=== PATIENT | female | born 1945 | race Caucasian/White ===

== ENCOUNTER 2023-10-15 11:51 | Outpatient (AMB) | payer MEDICARE, MEDICAID, SELFPAY ==
[2023-10-15 11:54] VITALS: BP 126/76; PULSE 73; O2SAT 98; BMI 19.1
--- NOTE | 2023-10-15 11:54 | HO.NEPHOV_ITS ---
HPI HPI Comments History of Present Illness Details Elderly woman with multiple medical problems Used to see [facility] since his half-way Accompanied by Here to establish care PFSH Family History (Updated 10/15/23 @ 12:00 by Princess Rahman) Mother Hypertension High cholesterol Crohn's disease COPD (chronic obstructive pulmonary disease) Father Brain cancer Social History Alcohol intake: never Patient Tobacco Use Status: Former Tobacco user Vital Signs 10/15/23 11:54 Height 5 ft 5 in Weight 115 lb BMI 19.1 BP 126/76 Blood Pressure Location Lt brachial Position Sitting Pulse 73 Pulse Source Pulse Oximeter Pulse Oximetry (%) 98 Oxygen Delivery Method Room Air Physical Exam Vital Signs: Last Vital Signs Pulse 73 10/15/23 11:54 BP 126/76 10/15/23 11:54 Pulse Ox 98 10/15/23 11:54 Oxygen Delivery Method Room Air 10/15/23 11:54 BMI result Body Mass Index 19.1 Const General: comfortable Nutritional Appearance: well nourished Orientation/consciousness: patient oriented x3 HEENT Head: No normal to inspection Mouth: moist mucous membranes Neck Neck: Yes supple and Yes no JVD Resp Auscultation: clear to auscultation bilaterally, no rales and rub present Cardio Jugular venous distension: no JVD Palpation: no palpable S3 and no palpable S4 Heart sounds: no rubs GI Palpation (GI): Soft to palpation and nontender Percussion: No Fluid wave present General: Yes no CVA tenderness Back/Spine/Pelvis Back: no CVA tenderness Skin General skin exam: no rashes or lesions noted Neuro General: patient oriented x3 Extrem General: Yes no pedal edema and No clubbing Assessment & Plan Assessment & Plan (1) CKD (chronic kidney disease): Code(s): N18.9 - Chronic kidney disease, unspecified (2) Nephrolithiasis: Code(s): N20.0 - Calculus of kidney (3) COPD (chronic obstructive pulmonary disease): Code(s): J44.9 - Chronic obstructive pulmonary disease, unspecified (4) Hyperparathyroidism: Code(s): E21.3 - Hyperparathyroidism, unspecified Plan Elderly woman with CKD in a setting fo HTN Shall track down previous labs Goal is to slow the progression of renal disease. Maintain blood pressure less than 130/80 Continue overt nephrotoxic agents. Encouraged her to keep intake more than output. She is stay on low-sodium diet. Check intact PTH calcium and phosphorus Monitor for anemia and possible CORNEL therapy. All questions were answered we will follow along with the team. Orders: Orders Phosphorus 10/15/23 N18.9 - Chronic kidney disease, unspecified, E21.3 - Hyperparathyroidism, unspecified Vitamin D 25-OH (D2 and D3) 10/15/23 N18.9 - Chronic kidney disease, unspecified, E21.3 - Hyperparathyroidism, unspecified Creatinine Urine 10/15/23 N05.9 - Unspecified nephritic syndrome with unspecified morphologic changes, N18.9 - Chronic kidney disease, unspecified, E21.3 - Hyperparathyroidism, unspecified Complete Blood Count Auto Diff 10/15/23 N18.30 - Chronic kidney disease, stage 3 unspecified, N18.9 - Chronic kidney disease, unspecified, E21.3 - Hyperparathyroidism, unspecified Comprehensive Met. Panel 10/15/23 N18.9 - Chronic kidney disease, unspecified, E21.3 - Hyperparathyroidism, unspecified Parathyroid Hormone Intact 10/15/23 N18.9 - Chronic kidney disease, unspecified, E21.3 - Hyperparathyroidism, unspecified Sodium Urine Random 10/15/23 N18.9 - Chronic kidney disease, unspecified, E21.3 - Hyperparathyroidism, unspecified Total Protein Urine Random 10/15/23 N18.9 - Chronic kidney disease, unspecified, E21.3 - Hyperparathyroidism, unspecified UA and rflx microscopic 10/15/23 N18.9 - Chronic kidney disease, unspecified, E21.3 - Hyperparathyroidism, unspecified Uric Acid 10/15/23 N18.9 - Chronic kidney disease, unspecified, E21.3 - Hyperparathyroidism, unspecified US renal BI 10/15/23 N20.0 - Calculus of kidney Coding Level of Care Code New Pt Level 5 (08919) Diagnoses CKD (chronic kidney disease) N18.9 Nephrolithiasis N20.0 COPD (chronic obstructive pulmonary disease) J44.9 Hyperparathyroidism E21.3 Results Reviewed Results Reviewed: Labs noted Nephrology Results: No Data to Display
== END 2023-10-15 12:34 | disposition home or self-care (01) ==
PROVIDERS: PCP Internal Medicine; Visit Provider Internal Medicine Hypertension Specialist
DX: I12.9 Hypertensive chronic kidney disease with stage 1 through stage 4 chronic kidney disease, or unspecified chronic kidney disease (principal); N18.9 Chronic kidney disease, unspecified; N20.0 Calculus of kidney; E21.3 Hyperparathyroidism, unspecified; J44.9 Chronic obstructive pulmonary disease, unspecified
CPT/HCPCS: 99204

== ENCOUNTER → 2023-10-15 11:51 | Outpatient (BNVA) | payer MEDICARE, MEDICAID, SELFPAY | PROVIDERS: PCP Internal Medicine; Visit Provider Internal Medicine Hypertension Specialist | DX: N18.9 Chronic kidney disease, unspecified (principal); N20.0 Calculus of kidney; J44.9 Chronic obstructive pulmonary disease, unspecified; E21.3 Hyperparathyroidism, unspecified | CPT/HCPCS: 99202 ==

== ENCOUNTER 2023-11-19 10:24 | Outpatient (AMB) | payer MEDICARE, MEDICAID, SELFPAY ==
[2023-11-19 10:36] VITALS: BP 118/72; PULSE 75; O2SAT 97; BMI 19.3
--- NOTE | 2023-11-19 10:36 | HO.NEPHOV_ITS ---
HPI HPI Comments History of Present Illness Details Elderly woman with multiple medical problems Used to see [facility] since his [facility] Accompanied by friend She continues to have multiple complaints. From renal standpoint she has no polyuria polydipsia. She does complain of dark urine. No back pain No fever PFSH Family History Mother Hypertension High cholesterol Crohn's disease COPD (chronic obstructive pulmonary disease) Father Brain cancer Social History Alcohol intake: never Patient Tobacco Use Status: Former Tobacco user Vital Signs 11/19/23 10:36 Height 5 ft 5 in Weight 116 lb BMI 19.3 BP 118/72 Blood Pressure Location Lt brachial Position Sitting Pulse 75 Pulse Source Pulse Oximeter Pulse Oximetry (%) 97 Oxygen Delivery Method Room Air Physical Exam Vital Signs: Last Vital Signs Pulse 75 11/19/23 10:36 BP 118/72 11/19/23 10:36 Pulse Ox 97 11/19/23 10:36 Oxygen Delivery Method Room Air 11/19/23 10:36 BMI result Body Mass Index 19.3 Const General: comfortable Nutritional Appearance: well nourished Orientation/consciousness: patient oriented x3 HEENT Head: No normal to inspection Mouth: moist mucous membranes Neck Neck: Yes supple and Yes no JVD Resp Auscultation: clear to auscultation bilaterally, no rales and rub present Cardio Jugular venous distension: no JVD Palpation: no palpable S3 and no palpable S4 Heart sounds: no rubs GI Palpation (GI): Soft to palpation and nontender Percussion: No Fluid wave present General: Yes no CVA tenderness Back/Spine/Pelvis Back: no CVA tenderness Skin General skin exam: no rashes or lesions noted Neuro General: patient oriented x3 Extrem General: Yes no pedal edema and No clubbing Assessment & Plan Assessment & Plan (1) Hyperparathyroidism: Code(s): E21.3 - Hyperparathyroidism, unspecified (2) CKD (chronic kidney disease): Code(s): N18.9 - Chronic kidney disease, unspecified (3) Nephrolithiasis: Code(s): N20.0 - Calculus of kidney (4) COPD (chronic obstructive pulmonary disease): Code(s): J44.9 - Chronic obstructive pulmonary disease, unspecified Plan Elderly woman with CKD in a setting fo HTN She has CKD 4. Creatinine stable at baseline. Goal is to slow the progression of renal disease. Maintain blood pressure less than 130/80 Continue overt nephrotoxic agents. Encouraged her to keep intake more than output. She is stay on low-sodium diet. Mild secondary hyperparathyroidism Follow intact PTH calcium and phosphorus Monitor for anemia and possible CORNEL therapy. Renal ultrasonogram was unremarkable no hydronephrosis or renal mass. There was a cystic mass above the kidneys and CT scan has been recommended. We will defer this to PCP Orders: Orders UA and rflx microscopic Today N39.0 - Urinary tract infection, site not specified Urine Culture Today N39.0 - Urinary tract infection, site not specified Neutrophil Cytoplasma Ab Today E21.3 - Hyperparathyroidism, unspecified, N18.9 - Chronic kidney disease, unspecified Proteinase 3 PR3 Antibodies Today E21.3 - Hyperparathyroidism, unspecified, N18.9 - Chronic kidney disease, unspecified Anti Glomerular Basement Memb 2 Days E21.3 - Hyperparathyroidism, unspecified, N18.9 - Chronic kidney disease, unspecified Protein Electrophoresis, Serum 2 Days E21.3 - Hyperparathyroidism, unspecified, N18.9 - Chronic kidney disease, unspecified Basic Metabolic Panel 2 Days E21.3 - Hyperparathyroidism, unspecified, N18.9 - Chronic kidney disease, unspecified Coding Level of Care Code Est Pt Level 4 (67548) Diagnoses Hyperparathyroidism E21.3 CKD (chronic kidney disease) N18.9 Nephrolithiasis N20.0 COPD (chronic obstructive pulmonary disease) J44.9 Results Reviewed Results Reviewed: Renal ultrasonogram was reviewed There was a cystic mass above the kidney and CT scan has been recommended. Nephrology Results: No Data to Display
== END 2023-11-19 11:16 | disposition home or self-care (01) ==
PROVIDERS: PCP Internal Medicine; Visit Provider Internal Medicine Hypertension Specialist
DX: E21.3 Hyperparathyroidism, unspecified (principal); N18.9 Chronic kidney disease, unspecified; N20.0 Calculus of kidney; J44.9 Chronic obstructive pulmonary disease, unspecified
CPT/HCPCS: 99214

== ENCOUNTER 2023-11-19 11:38 | Outpatient (REF) | payer MEDICARE, MEDICAID, SELFPAY ==
[2023-11-19 17:35] LABS: Appearance Urine Cloudy; Color Urine Yellow; Glucose Urine UA Negative (Negative); Leukocyte Esterase Urine Trace (Negative); Nitrite Urine Negative (Negative); Specific Gravity - Urine 1.015 (1.005-1.025); UMIC TRIGGER UA YES; Urine Blood Negative (Negative); Urine Ketones Trace mg/dL (Negative); Urine Protein 30 (1+) mg/dL (Neg-Trace)
[2023-11-19 17:43] LABS: Bacteria Urine Trace (None Seen); RBC Urine 0-2 /HPF (0-2)
[2023-11-19 18:26] LABS: Creatinine Urine 161.79 mg/dL; Total Protein Urine Random 53 mg/dL (<12)
[2023-11-20 20:43] LABS: Proteinase 3 PR3 Antibodies <1.0 AI
[2023-11-21 09:18] LABS: Neutrophil Cyto Ab Screen NEGATIVE (NEGATIVE)
== END 2023-11-19 11:39 | disposition home or self-care (01) ==
LOC: HO.HKASLDS 11:38
PROVIDERS: Visit Provider Internal Medicine Hypertension Specialist
DX: N05.9 Unspecified nephritic syndrome with unspecified morphologic changes (principal); N18.9 Chronic kidney disease, unspecified; N39.0 Urinary tract infection, site not specified; E21.3 Hyperparathyroidism, unspecified
CPT/HCPCS: 36415; 81001; 82570; 84156; 84300; 86021; 86036; 87086; 99212

== ENCOUNTER 2024-02-18 10:23 | Outpatient (AMB) | payer MEDICARE, MEDICAID, SELFPAY ==
[2024-02-18 10:21] VITALS: BP 146/78; PULSE 65; O2SAT 98; BMI 19.1
--- NOTE | 2024-02-18 10:21 | HO.NEPHOV_ITS ---
Vital Signs 02/18/24 10:21 Height 5 ft 5 in Weight 115 lb BMI 19.1 BP 146/78 H Blood Pressure Location Lt brachial Position Sitting Pulse 65 Pulse Source Pulse Oximeter Pulse Oximetry (%) 98 Oxygen Delivery Method Room Air Intake Visit Reasons: 3 Months/ Conf Fraud Representative Required: No Accompanied by: Friend Allergies No Known Allergies Allergy (Verified 02/18/24 10:24) Medication List - Last Reconciled 02/18/24 by Will Singh MD amlodipine 10 mg PO DAILY atorvastatin mg PO DAILY duloxetine 60 mg PO DAILY pxxpdxpazzj-daqthphms-ebcilodu 100-62.5-25 mcg (Trelegy Ellipta) 1 ea inhalation DAILY labetalol 50 mg PO BID lorazepam 0.5 mg PO Q6H PRN magnesium 200 mg PO DAILY PRN HPI Comments Details: Gloria is a 78-year-old woman with a hypertension, renal stones, bipolar disorder and a history of CKD Used to see [facility] since his intermediate Accompanied by friend She has a complicated history including calcium pyrophosphate deposition disease and history of kidney stones. History of hyperparathyroidism . 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 [facility] Family History Mother Hypertension High cholesterol Crohn's disease COPD (chronic obstructive pulmonary disease) Father Brain cancer Social History Alcohol intake: never Patient Tobacco Use Status: Former Tobacco user Physical Exam Vital Signs: Last Vital Signs Pulse 65 02/18/24 10:21 BP 146/78 H 02/18/24 10:21 Pulse Ox 98 02/18/24 10:21 Oxygen Delivery Method Room Air 02/18/24 10:21 BMI result Body Mass Index 19.1 Awake. Comfortable. Neck is supple. Mucosa moist. Lungs bilateral scattered rhonchi. Heart S1-S2 heard no gallop. Abdomen soft. Extremities no edema. No involuntary movements. No myoclonus. Const General: comfortable; No acute distress Orientation/consciousness: patient oriented x3 Eyes General: appearance normal, both eyes and all related structures Visual Denise: normal visual denise by confrontation Neck Neck: Yes supple and Yes no JVD Resp Effort & Inspection: normal respiratory effort and respiratory effort not decreased Auscultation: rhonchi Cardio Palpation: no palpable S3 and no palpable S4 Heart sounds: no rubs GI Inspection: Yes normal to inspection Palpation (GI): Soft to palpation Percussion: Yes normal to percussion Auscultation: normal bowel sounds General: Yes no CVA tenderness Back/Spine/Pelvis Back: no CVA tenderness Skin General skin exam: no petechiae and no purpura Neuro General: patient oriented x3 and no focal motor deficits Extrem General: No clubbing and No edema Results Reviewed Results Reviewed: Serum creatinine is 1.8 with a EGFR of 29 mL/minute Nephrology Results: Urine Protein 30 (1+) mg/dL (Neg-Trace) H 11/19/23 Urine Creatinine 161.79 mg/dL 11/19/23 Assessment & Plan Assessment & Plan (1) CKD (chronic kidney disease): Code(s): N18.9 - Chronic kidney disease, unspecified Category: Medical (2) Hyperparathyroidism: Code(s): E21.3 - Hyperparathyroidism, unspecified Category: Medical (3) Nephrolithiasis: Code(s): N20.0 - Calculus of kidney Category: Medical (4) COPD (chronic obstructive pulmonary disease): Code(s): J44.9 - Chronic obstructive pulmonary disease, unspecified Category: Medical Plan Elderly woman with CKD in a setting fo HTN She has CKD 4. Creatinine stable at baseline. 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 Being followed by surgical oncology. CT scan with IV contrast has been recommended. She is at moderate risk for contrast induced nephropathy. The risks and benefits were discussed with the patient. The benefits outweigh risks and if she requires CT scan with contrast we should proceed with the same. She should receive IV hydration prior to IV contrast administration. Medications: New lorazepam 0.5 mg PO Q6H PRN 30 tabs 0RF anxiety Coding Level of Care Code Est Pt Level 4 (00315) Diagnoses CKD (chronic kidney disease) N18.9 Hyperparathyroidism E21.3 Nephrolithiasis N20.0 COPD (chronic obstructive pulmonary disease) J44.9
== END 2024-02-18 10:55 | disposition home or self-care (01) ==
PROVIDERS: PCP Internal Medicine; Visit Provider Internal Medicine Hypertension Specialist
DX: N18.9 Chronic kidney disease, unspecified (principal); E21.3 Hyperparathyroidism, unspecified; N20.0 Calculus of kidney; J44.9 Chronic obstructive pulmonary disease, unspecified
CPT/HCPCS: 99214

== ENCOUNTER → 2024-02-18 10:23 | Outpatient (BNVA) | payer MEDICARE, MEDICAID, SELFPAY | PROVIDERS: PCP Internal Medicine; Visit Provider Internal Medicine Hypertension Specialist | DX: I12.9 Hypertensive chronic kidney disease with stage 1 through stage 4 chronic kidney disease, or unspecified chronic kidney disease (principal); N18.4 Chronic kidney disease, stage 4 (severe); E21.3 Hyperparathyroidism, unspecified; N20.0 Calculus of kidney; J44.9 Chronic obstructive pulmonary disease, unspecified | CPT/HCPCS: 99212 ==

== ENCOUNTER 2024-04-02 11:19 | Outpatient (AMB) | payer MEDICARE, MEDICAID, SELFPAY ==
--- NOTE | 2024-04-02 11:33 | HO.NEPHOV_ITS ---
Vital Signs 04/02/24 11:34 Height 5 ft 5 in Weight 111 lb BMI 18.5 BP 144/72 H Blood Pressure Location Lt brachial Position Sitting Pulse 73 Pulse Source Pulse Oximeter Pulse Oximetry (%) 99 Oxygen Delivery Method Room Air Intake Visit Reasons: Pt needed sooner appt- Conf User Interface Engineer Required: No Accompanied by: Friend Allergies No Known Allergies Allergy (Verified 04/02/24 11:36) Medication List - Last Reconciled 04/02/24 by Will Singh MD amlodipine 10 mg PO DAILY atorvastatin mg PO DAILY cinacalcet 60 mg PO DAILY duloxetine 60 mg PO DAILY hharwhddqng-fmjnlabqi-czagjoqh 100-62.5-25 mcg (Trelegy Ellipta) 1 ea inhalation DAILY labetalol 50 mg PO BID lorazepam 0.5 mg PO Q6H PRN magnesium 200 mg PO DAILY PRN HPI Comments Details: Gloria is a 78-year-old woman with a hypertension, renal stones, bipolar disorder and a history of CKD Used to see [facility] since his intermediate Accompanied by friend She has a complicated history including calcium pyrophosphate deposition disease and history of kidney stones. History of hyperparathyroidism . 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 04/02/24 CT with IV contrast was cancelled Waiting for MRI PENDING SALE TO [facility] Family History Mother Hypertension High cholesterol Crohn's disease COPD (chronic obstructive pulmonary disease) Father Brain cancer Social History Alcohol intake: never Patient Tobacco Use Status: Former Tobacco user Physical Exam Vital Signs: Last Vital Signs Pulse 73 04/02/24 11:34 BP 144/72 H 04/02/24 11:34 Pulse Ox 99 04/02/24 11:34 Oxygen Delivery Method Room Air 04/02/24 11:34 BMI result Body Mass Index 18.5 Results Reviewed Nephrology Results: Urine Protein 30 (1+) mg/dL (Neg-Trace) H 11/19/23 Urine Creatinine 161.79 mg/dL 11/19/23 Assessment & Plan Assessment & Plan (1) CKD (chronic kidney disease): Code(s): N18.9 - Chronic kidney disease, unspecified Category: Medical (2) Hyperparathyroidism: Code(s): E21.3 - Hyperparathyroidism, unspecified Category: Medical (3) Nephrolithiasis: Code(s): N20.0 - Calculus of kidney Category: Medical (4) COPD (chronic obstructive pulmonary disease): Code(s): J44.9 - Chronic obstructive pulmonary disease, unspecified Category: Medical Plan Elderly woman with CKD in a setting fo HTN She has CKD 4. Creatinine stable at baseline. 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 Being followed by surgical oncology. CT scan with IV contrast has been recommended. She is at moderate risk for contrast induced nephropathy. The risks and benefits were discussed with the patient. The benefits outweigh risks and if she requires CT scan with contrast we should proceed with the same. She should receive IV hydration prior to IV contrast adm inistration. scheduled for MRI ; Management per Oncology Renal function is stable [facility] Cr of 1.8 Coding Level of Care Code Est Pt Level 4 (99351) Diagnoses CKD (chronic kidney disease) N18.9 Hyperparathyroidism E21.3 Nephrolithiasis N20.0 COPD (chronic obstructive pulmonary disease) J44.9
[2024-04-02 11:34] VITALS: BP 144/72; PULSE 73; O2SAT 99; BMI 18.5
== END 2024-04-02 11:53 | disposition home or self-care (01) ==
PROVIDERS: PCP Internal Medicine; Visit Provider Internal Medicine Hypertension Specialist
DX: N18.9 Chronic kidney disease, unspecified (principal); E21.3 Hyperparathyroidism, unspecified; N20.0 Calculus of kidney; J44.9 Chronic obstructive pulmonary disease, unspecified
CPT/HCPCS: 99214

== ENCOUNTER → 2024-04-02 11:19 | Outpatient (BNVA) | payer MEDICARE, MEDICAID, SELFPAY | PROVIDERS: PCP Internal Medicine; Visit Provider Internal Medicine Hypertension Specialist | DX: I12.9 Hypertensive chronic kidney disease with stage 1 through stage 4 chronic kidney disease, or unspecified chronic kidney disease (principal); N18.9 Chronic kidney disease, unspecified; N20.0 Calculus of kidney; E21.3 Hyperparathyroidism, unspecified | CPT/HCPCS: 99212 ==

== ENCOUNTER 2024-06-30 10:41 | Outpatient (AMB) | payer MEDICARE, MEDICAID, SELFPAY ==
[2024-06-30 10:42] VITALS: BP 148/76; PULSE 72; O2SAT 97; BMI 17.8
--- NOTE | 2024-06-30 10:42 | HO.NEPHOV_ITS ---
Vital Signs 06/30/24 10:42 Height 5 ft 5 in Weight 107 lb BMI 17.8 BP 148/76 H Blood Pressure Location Lt brachial Position Sitting Pulse 72 Pulse Source Pulse Oximeter Pulse Oximetry (%) 97 Oxygen Delivery Method Room Air Intake Visit Reasons: FU/ Conf Manager [employer] Required: No Accompanied by: Friend Allergies No Known Allergies Allergy (Verified 06/30/24 10:44) Medication List - Last Reconciled 06/30/24 by Will Singh MD amlodipine 10 mg PO DAILY atorvastatin mg PO DAILY cinacalcet 60 mg PO DAILY duloxetine 60 mg PO DAILY duloxetine 20 mg PO DAILY tzckcpqeasi-vyplzgglr-dzfewrtr 100-62.5-25 mcg (Trelegy Ellipta) 1 ea inhalation DAILY labetalol 50 mg PO BID lorazepam 0.5 mg PO Q6H PRN magnesium 200 mg PO DAILY PRN oxycodone-acetaminophen 2.5-325 mg 1 tab PO BID PRN HPI Comments Details: Gloria is a 78-year-old woman with a hypertension, renal stones, bipolar disorder and a history of CKD Used to see [facility] since his [facility] Accompanied by friend She has a complicated history including calcium pyrophosphate deposition disease and history of kidney stones. History of hyperparathyroidism . 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 04/02/24 CT with IV contrast was cancelled 06/30/24 Surgery cancelled adn waiting for pulm evaluation Recent fall with knee injury PFSH Family History Mother Hypertension High cholesterol Crohn's disease COPD (chronic obstructive pulmonary disease) Father Brain cancer Social History Alcohol intake: never Patient Tobacco Use Status: Former Tobacco user Physical Exam Vital Signs: Last Vital Signs Pulse 72 06/30/24 10:42 BP 148/76 H 06/30/24 10:42 Pulse Ox 97 06/30/24 10:42 Oxygen Delivery Method Room Air 06/30/24 10:42 BMI result Body Mass Index 17.8 Neck Neck: Yes supple Resp Auscultation: clear to auscultation bilaterally Cardio Palpation: no palpable S3 Heart sounds: no rubs GI Palpation (GI): Soft to palpation Auscultation: normal bowel sounds Neuro Motor exam (neuro): no asterixis Results Reviewed Nephrology Results: Urine Protein 30 (1+) mg/dL (Neg-Trace) H 11/19/23 Urine Creatinine 161.79 mg/dL 11/19/23 Assessment & Plan Assessment & Plan (1) CKD (chronic kidney disease): Code(s): N18.9 - Chronic kidney disease, unspecified Category: Medical (2) Hyperparathyroidism: Code(s): E21.3 - Hyperparathyroidism, unspecified Category: Medical (3) Nephrolithiasis: Code(s): N20.0 - Calculus of kidney Category: Medical (4) COPD (chronic obstructive pulmonary disease): Code(s): J44.9 - Chronic obstructive pulmonary disease, unspecified Category: Medical (5) UTI (urinary tract infection), uncomplicated: Code(s): N39.0 - Urinary tract infection, site not specified Category: Medical Plan Elderly woman with CKD in a setting fo HTN She has CKD 4. Creatinine stable at baseline. 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 Being followed by surgical oncology. CT scan with IV contrast has been recommended. She is at moderate risk for contrast induced nephropathy. The risks and benefits were discussed with the patient. The benefits outweigh risks and if she requires CT scan with contrast we should proceed with the same. She should receive IV hydration prior to IV contrast administration. scheduled for MRI ; Management per Oncology Renal function is stable with Cr of 1.8 Await pulm evaluation . Orders: Orders Basic Metabolic Panel Today N18.9 - Chronic kidney disease, unspecified Total Protein Urine Random Today N18.9 - Chronic kidney disease, unspecified UA and rflx microscopic Today N18.9 - Chronic kidney disease, unspecified Urine Culture Today N18.9 - Chronic kidney disease, unspecified, N39.0 - Urinary tract infection, site not specified Complete Blood Count no Diff Today N18.9 - Chronic kidney disease, unspecified Creatinine Today N18.9 - Chronic kidney disease, unspecified Coding Level of Care Code Est Pt Level 4 (80669) Diagnoses CKD (chronic kidney disease) N18.9 Hyperparathyroidism E21.3 Nephrolithiasis N20.0 COPD (chronic obstructive pulmonary disease) J44.9 UTI (urinary tract infection), uncomplicated N39.0
== END 2024-06-30 11:04 | disposition home or self-care (01) ==
PROVIDERS: PCP Internal Medicine; Visit Provider Internal Medicine Hypertension Specialist
DX: N18.9 Chronic kidney disease, unspecified (principal); E21.3 Hyperparathyroidism, unspecified; N20.0 Calculus of kidney; J44.9 Chronic obstructive pulmonary disease, unspecified; N39.0 Urinary tract infection, site not specified
CPT/HCPCS: 99214

== ENCOUNTER → 2024-06-30 10:41 | Outpatient (BNVA) | payer MEDICARE, MEDICAID, SELFPAY | PROVIDERS: PCP Internal Medicine; Visit Provider Internal Medicine Hypertension Specialist | DX: I10 Essential (primary) hypertension (principal); N20.0 Calculus of kidney; N39.0 Urinary tract infection, site not specified; N18.9 Chronic kidney disease, unspecified; E21.3 Hyperparathyroidism, unspecified; J44.9 Chronic obstructive pulmonary disease, unspecified; C74.02 Malignant neoplasm of cortex of left adrenal gland; C74.01 Malignant neoplasm of cortex of right adrenal gland | CPT/HCPCS: 99212 ==

== ENCOUNTER 2024-10-27 10:25 | Outpatient (AMB) | payer MEDICARE, MEDICAID, SELFPAY ==
[2024-10-27 10:31] VITALS: BP 140/72; PULSE 68; O2SAT 94; BMI 18.5
--- NOTE | 2024-10-27 10:31 | HO.NEPHOV_ITS ---
Vital Signs 10/27/24 10:31 Height 5 ft 5 in Weight 111 lb BMI 18.5 BP 140/72 H Blood Pressure Location Lt brachial Position Sitting Pulse 68 Pulse Source Pulse Oximeter Pulse Oximetry (%) 94 Oxygen Delivery Method Room Air Intake Visit Reasons: FU/ LVM Boiler Out Required: No Accompanied by: Daughter Allergies No Known Allergies Allergy (Verified 10/27/24 10:34) Medication List - Last Reconciled 10/27/24 by Will Singh MD amlodipine 10 mg PO DAILY atorvastatin mg PO DAILY cinacalcet 60 mg PO DAILY duloxetine 60 mg PO DAILY duloxetine 20 mg PO DAILY kfhpuwyuvzo-bhusfblxt-uucdvkht 100-62.5-25 mcg (Trelegy Ellipta) 1 ea inhalation DAILY gabapentin 100 mg PO 3XD labetalol 50 mg PO BID loperamide 2 mg PO DAILY lorazepam 0.5 mg PO Q6H PRN magnesium 200 mg PO DAILY PRN oxycodone-acetaminophen 2.5-325 mg 1 tab PO BID PRN potassium chloride (Klor-Con) 20 mEq PO DAILY HPI Comments Details: Gloria is a 78-year-old woman with a hypertension, renal stones, bipolar disorder and a history of CKD Used to see [facility] since his skilled nursing Accompanied by friend She has a complicated history including calcium pyrophosphate deposition disease and history of kidney stones. History of hyperparathyroidism . 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 04/02/24 ; CT with IV contrast was cancelled. 06/30/24; Surgery cancelled and waiting for pulm evaluation; Recent fall with knee injury 10/27/24 : Accompanied by daughter today. She has had few hospitalizations with pneumonia and other issues. She developed TANVI and renal function has improved. She also had hypokalemia requiring potassium supplementation. She was still waiting for Pulmonary evaluation. [facility] Family History Mother Hypertension High cholesterol Crohn's disease COPD (chronic obstructive pulmonary disease) Father Brain cancer Social History Alcohol intake: never Patient Tobacco Use Status: Former Tobacco user Physical Exam Vital Signs: Last Vital Signs Pulse 68 10/27/24 10:31 BP 140/72 H 10/27/24 10:31 Pulse Ox 94 10/27/24 10:31 Oxygen Delivery Method Room Air 10/27/24 10:31 BMI result Body Mass Index 18.5 Results Reviewed Nephrology Results: Urine Protein 30 (1+) mg/dL (Neg-Trace) H 11/19/23 Urine Creatinine 161.79 mg/dL 11/19/23 Assessment & Plan Assessment & Plan (1) CKD (chronic kidney disease): Code(s): N18.9 - Chronic kidney disease, unspecified Category: Medical (2) Hyperparathyroidism: Code(s): E21.3 - Hyperparathyroidism, unspecified Category: Medical (3) Nephrolithiasis: Code(s): N20.0 - Calculus of kidney Category: Medical (4) COPD (chronic obstructive pulmonary disease): Code(s): J44.9 - Chronic obstructive pulmonary disease, unspecified Category: Medical (5) UTI (urinary tract infection), uncomplicated: Code(s): N39.0 - Urinary tract infection, site not specified Category: Medical Plan Elderly woman with CKD in a setting fo HTN She has CKD 3B TANVI has resolved. Most recent EGFR is 33 mL/minute cystic mass above the kidneys 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 Being followed by surgical oncology. CT scan with IV contrast has been recommended. She is at moderate risk for contrast induced nephropathy. The risks and benefits were discussed with the patient. The benefits outweigh risks and if she requires CT scan with contrast we should proceed with the same. She should receive IV hydration prior to IV contrast administration. scheduled for MRI ; Management per Oncology Renal function is stable with Cr of 1.8 Recheck renal panel along with potassium levels. For now she will continue with same dose of potassium supplementation. Orders: Orders Comprehensive Met. Panel Today Will Singh MD N18.9 - Chronic kidney disease, unspecified Phosphorus Today Will Singh MD N18.9 - Chronic kidney disease, unspecified Parathyroid Hormone Intact Today Will Singh MD N18.9 - Chronic kidney disease, unspecified Vitamin B12 and Folate Today Will Singh MD N18.9 - Chronic kidney disease, unspecified Complete Blood Count no Diff Today Will Singh MD N18.9 - Chronic kidney disease, unspecified Vitamin D 25-OH Total Today Will Singh MD N18.9 - Chronic kidney disease, unspecified Medications: Changed From cinacalcet 60 mg PO ONCE 90 tabs 0RF To cinacalcet 60 mg PO DAILY Tamara Lord, DNP, [employer] Coding Level of Care Code Est Pt Level 5 (75668) Diagnoses CKD (chronic kidney disease) N18.9 Hyperparathyroidism E21.3 Nephrolithiasis N20.0 COPD (chronic obstructive pulmonary disease) J44.9 UTI (urinary tract infection), uncomplicated N39.0
== END 2024-10-27 11:04 | disposition home or self-care (01) ==
LOC: HO.HKAS 10:26
PROVIDERS: PCP Internal Medicine; Visit Provider Internal Medicine Hypertension Specialist
DX: N18.9 Chronic kidney disease, unspecified (principal); E21.3 Hyperparathyroidism, unspecified; N20.0 Calculus of kidney; J44.9 Chronic obstructive pulmonary disease, unspecified; N39.0 Urinary tract infection, site not specified
CPT/HCPCS: 99214

== ENCOUNTER 2024-10-27 10:25 | Outpatient (REF) | payer MEDICARE, MEDICAID, SELFPAY ==
[2024-10-27 18:24] LABS: Appearance Urine Clear; Color Urine Yellow; Glucose Urine UA Negative (Negative); Leukocyte Esterase Urine Negative (Negative); Nitrite Urine Negative (Negative); PH 6.5 (5.0-9.0); UMIC TRIGGER UA YES; Urine Blood Negative (Negative); Urine Ketones Negative (Negative); Urine Protein 30 (1+) mg/dL (Neg-Trace)
[2024-10-27 18:30] LABS: Hematocrit 32.8 % (37.0-47.0); Hemoglobin 10.9 g/dl (12.0-16.0); Mean Corpuscular HGB Conc 33.2 g/dl (31.0-35.0); Mean Corpuscular Hemoglobin 31.5 pg (27.0-33.0); Mean Corpuscular Volume 94.8 fL (80.0-98.0); Mean Platelet Volume 9.9 fL (9.4-12.3); Platelet Count 247 X10*3/uL (160-400); Red Blood Count 3.46 X10*6/uL (4.20-5.50); Red Cell Distribution Width 13.8 % (11.0-16.0); White Blood Count 6.9 X10*3/uL (4.8-10.8)
[2024-10-27 18:30] LABS: Bacteria Urine None Seen (None Seen); Hyaline Casts Urine 0-2 /LPF (0-2); RBC Urine 0-2 /HPF (0-2); WBC Urine 0-5 /HPF (0-5)
[2024-10-27 18:44] LABS: Alanine Aminotransferase 22 U/L (0-31); Albumin Level 4.1 g/dL (3.5-5.0); Alkaline Phosphatase 79 U/L (39-117); Anion Gap 11 (12-20); Aspartate Amino Transferase 32 U/L (5-31); Bilirubin Total 0.4 mg/dL (0.0-1.0); Blood Urea Nitrogen 33 mg/dL (9-16); Calcium 9.2 mg/dL (8.4-10.2); Carbon Dioxide 29 mmol/L (22-29); Chloride 102 mmol/L (96-108); Estimated Glomerular Filt Rate 36; Glucose Random 84 mg/dL (60-115); Phosphorus 3.6 mg/dL (2.7-4.5); Potassium 4.1 mmol/L (3.3-5.1); Sodium 138 mmol/L (135-145); Total Protein 6.9 g/dL (6.5-8.0)
[2024-10-27 19:00] LABS: Vitamin D 25-OH Total 76.2 ng/mL (>30)
[2024-10-27 19:02] LABS: Total Protein Urine Random 26 mg/dL (<12)
[2024-10-27 19:14] LABS: Folate > 20.0 ng/mL (> or = 4.0); Vitamin B12 602 pg/mL (200-900)
[2024-10-27 19:29] LABS: Parathyroid Hormone Intact 147.7 pg/mL (8.7-77.1)
== END 2024-10-27 10:26 | disposition home or self-care (01) ==
LOC: HO.HKASLDS 10:25
PROVIDERS: PCP Internal Medicine; Visit Provider Internal Medicine Hypertension Specialist
DX: N18.9 Chronic kidney disease, unspecified (principal); N39.0 Urinary tract infection, site not specified; E21.3 Hyperparathyroidism, unspecified; N20.0 Calculus of kidney; J44.9 Chronic obstructive pulmonary disease, unspecified; D35.02 Benign neoplasm of left adrenal gland; D35.01 Benign neoplasm of right adrenal gland
CPT/HCPCS: 36415; 80053; 81001; 82306; 82607; 82746; 83970; 84100; 84156; 85027; 87086; 99212

== ENCOUNTER 2024-12-15 09:48 | Outpatient (AMB) | payer MEDICARE, MEDICAID, SELFPAY ==
[2024-12-15 09:49] VITALS: BP 110/72; PULSE 62; O2SAT 96; BMI 18.6
--- NOTE | 2024-12-15 09:49 | HO.NEPHOV ---
Vital Signs 12/15/24 09:49 Height 5 ft 5 in Weight 112 lb BMI 18.6 BP 110/72 Blood Pressure Location Lt brachial Position Sitting Pulse 62 Pulse Source Pulse Oximeter Pulse Oximetry (%) 96 Oxygen Delivery Method Room Air Intake Visit Reasons: Pt req sooner appt re: labs done at [facility] Floor Person Required: No Accompanied by: Spouse Allergies morphine Allergy (Unknown, Verified 12/15/24 09:52) Vomiting Medication List - Last Reconciled 12/15/24 by Will Singh MD amlodipine 10 mg PO DAILY atorvastatin mg PO DAILY cinacalcet 60 mg PO DAILY duloxetine 60 mg PO DAILY duloxetine 20 mg PO DAILY vzukwvwxijs-tbdrobvlf-saiovyln 100-62.5-25 mcg (Trelegy Ellipta) 1 ea inhalation DAILY imatinib 400 mg PO DAILY labetalol 100 mg PO BID lorazepam 0.5 mg PO Q6H PRN magnesium 200 mg PO DAILY PRN ondansetron HCl mg PO potassium chloride (Klor-Con) 20 mEq PO DAILY HPI Comments Details: Gloria is a 78-year-old woman with a hypertension, renal stones, bipolar disorder and a history of CKD Used to see [facility] since his snf Accompanied by friend She has a complicated history including calcium pyrophosphate deposition disease and history of kidney stones. History of hyperparathyroidism . 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 04/02/24 ; CT with IV contrast was cancelled. 06/30/24; Surgery cancelled and waiting for pulm evaluation; Recent fall with knee injury 10/27/24 : Accompanied by daughter today. She has had few hospitalizations with pneumonia and other issues. She developed TANVI and renal function has improved. She also had hypokalemia requiring potassium supplementation. She was still waiting for Pulmonary evaluation. 12/15/24 Last month she was in ER for hypokalemia s/p IV KCL and now on PO KCL No diarrhea . No polyuria. No nocturia Imatinib has been started as of 12/13/24 PFS Family History Mother Hypertension High cholesterol Crohn's disease COPD (chronic obstructive pulmonary disease) Father Brain cancer Social History Alcohol intake: never Patient Tobacco Use Status: Former Tobacco user Physical Exam Vital Signs: Last Vital Signs Pulse 62 12/15/24 09:49 BP 110/72 12/15/24 09:49 Pulse Ox 96 12/15/24 09:49 Oxygen Delivery Method Room Air 12/15/24 09:49 BMI result Body Mass Index 18.6 Neck Neck: Yes supple Resp Auscultation: clear to auscultation bilaterally Cardio Palpation: no palpable S3 Heart sounds: no rubs GI Palpation (GI): Soft to palpation Auscultation: normal bowel sounds Neuro Motor exam (neuro): no asterixis Results Reviewed Nephrology Results: Hgb 10.9 g/dl (12.0-16.0) L 10/27/24 WBC 6.9 X10*3/uL (4.8-10.8) 10/27/24 Plt Count 247 X10*3/uL (160-400) 10/27/24 Sodium 138 mmol/L (135-145) 10/27/24 Potassium 4.1 mmol/L (3.3-5.1) 10/27/24 Chloride 102 mmol/L (96-108) 10/27/24 Carbon Dioxide 29 mmol/L (22-29) 10/27/24 BUN 33 mg/dL (9-16) H 10/27/24 Creatinine 1.42 mg/dL (0.5-1.4) H 10/27/24 Calcium 9.2 mg/dL (8.4-10.2) 10/27/24 Phosphorus 3.6 mg/dL (2.7-4.5) 10/27/24 PTH Intact 147.7 pg/mL (8.7-77.1) H 10/27/24 Urine Protein 30 (1+) mg/dL (Neg-Trace) H 10/27/24 Urine Creatinine 161.79 mg/dL 11/19/23 Assessment & Plan Assessment & Plan (1) CKD (chronic kidney disease): Code(s): N18.9 - Chronic kidney disease, unspecified Category: Medical (2) Hyperparathyroidism: Code(s): E21.3 - Hyperparathyroidism, unspecified Category: Medical (3) Nephrolithiasis: Code(s): N20.0 - Calculus of kidney Category: Medical (4) COPD (chronic obstructive pulmonary disease): Code(s): J44.9 - Chronic obstructive pulmonary disease, unspecified Category: Medical (5) UTI (urinary tract infection), uncomplicated: Code(s): N39.0 - Urinary tract infection, site not specified Category: Medical Plan Elderly woman with CKD in a setting fo HTN She has CKD 3B Another episode of AK - cr at 2.1 on 12/06/24 Most recent EGFR is 33 mL/minute cystic mass above the kidneys 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 Being followed by surgical oncology. CT scan with IV contrast has been recommended. She is at moderate risk for contrast induced nephropathy. The risks and benefits were discussed with the patient. The benefits outweigh risks and if she requires CT scan with contrast we should proceed with the same. She should receive IV hydration prior to IV contrast administration. scheduled for MRI ; Management per Oncology Recheck renal panel along with potassium levels For now she will continue with same dose of potassium supplementation. Started on Imatinib on 12/15/24 Watch creatinine closely Follows in [facility] Coding Level of Care Code Est Pt Level 4 (36537) Diagnoses CKD (chronic kidney disease) N18.9 Hyperparathyroidism E21.3 Nephrolithiasis N20.0 COPD (chronic obstructive pulmonary disease) J44.9 UTI (urinary tract infection), uncomplicated N39.0
--- OUTSIDE RECORDS SUMMARY | 2024-12-15 10:42 | XMS_ITS | Encounter Summary ---
Author Organization [facility] Address [address] [facility] [address] [place] [address] Phone Care Team Providers Care Ammonium Sulfate Operator Name Role Phone Kinza Salazar Primary Care Provider Encounter Details Date Type Department Care Team ([facility] st Contact Info) Description 02/21/2024 Office Communication [facility] [address] [facility] [address] [place] [phone] Gina Reyes ARNP [address] [facility] [address] [place] [phone] Social History Tobacco Use Types Packs/Day Years Used Date Smoking Tobacco: Former Smokeless Tobacco: Never Alcohol Use Standard Drinks/Week Comments No 0 (1 standard drink = 0.6 oz pur e alcohol) Comments Unknown Sex and Gender Information Value Date Recorded Sex Assigned at Not on file Legal Sex Female 5:16 PM EST Gender Identity Not on file Sexual Orientation Not on file documented as of this encounter Miscellaneous Notes * Telephone Encounter - Pilar Galdamez - 03/08/2024 2:44 PM EDT PT called to say that her BP is high. Now-173/87. Has been 144/68 and 127/73. That's all she could give me. She mentioned Mar 19 CAT scan and Mar 22 at [facility] Anyway, CB# [phone] TY documented in this encounter Plan of Treatment Upcoming Encounters Date Type Department Care Team (Late st Contact Info) Description 01/07/2025 11:00 AM EDT Office Visit [facility] [address] [phone] Juan Pablo Cox MD [address] [phone] documented as of this encounter Visit Diagnoses Not on filedocumented in this encounter Care Teams Ammonium Sulfate Operator Relationship Specialty Start Date End Date Kinza Salazar [address] [place] [address] PCP - General 08/19/23 documented as of this encounter
--- OUTSIDE RECORDS SUMMARY | 2024-12-15 10:42 | XMS_ITS | Clinical Summary ---
Author Organization [facility] Address [address] [facility] [address] [place] [address] Phone Care Team Providers Care Neurodiagnostic Technologist Name Role Phone Kinza Salazar Primary Care Provider Allergies No known active allergies Medications atorvastatin (LIPITOR) 40 MG tablet Take 40 mg by mouth at bed time 08/05/20 20 Active buPROPion SR (WELLBUTRIN SR) 200 MG 12 hr tablet Take 1 tablet (200 mg total) by mouth 3 times a day 270 tablet 3 10/28/19 21 Active DULoxetine (CYMBALTA) [address] capsule Take 20 mg by mouth 1 (one) time each day Do not crush or chew. Active LORazepam (Ativan) 0.5 MG tablet Take 1 tablet (0.5 mg total) by mouth every 6 (six) hours if needed for anxiety 60 tablet 5 04/02/20 23 Active labetalol (NORMODYNE) 100 MG tabletIndications:Chron ic kidney disease, stage 2 (mild) Take 1 tablet (100 mg total) by mouth in the morning. Take 1/2 tab BID. 90 tablet 3 09/11/19 24 Active amLODIPine (NORVASC) 10 MG tabletIndications:Essen tial hypertension Take 1 tablet (10 mg total) by mouth 1 (one) time each day 90 tablet 3 09/11/19 24 Active cinacalcet (Sensipar) 30 MG tabletIndications:Stage 3b chronic kidney disease (HCC),Secondary hyperparathyroidism of renal origin (HCC) Take 1 tablet (30 mg total) by mouth 1 (one) time each day with breakfast 30 tablet 11 02/29/20 24 025 Active Active Problems Problem Noted Date Diagnosed Date Abdominal aortic aneurysm 11/26/2021 Adrenal mass 11/26/2021 Anxiety 11/26/2021 Asthma-chronic obstructive p ulmonary disease overlap syndrome 11/26/2021 Bipolar affective disorder, currently depressed, mild 11/26/2021 Calcium pyrophosphate deposition disease 022 Cobalamin deficiency 11/26/2021 Depressive disorder 11/26/2021 Diffuse spasm of esophagus 11/26/2021 Dyspnea 11/26/2021 H/O: pneumothorax 11/26/2021 Hemorrhoid 11/26/2021 Hidradenitis 11/26/2021 Hyperparathyroidism 11/26/2021 Neck pain 11/26/2021 Urinary incontinence 11/26/2021 Benign hypertensive renal disease 10/27/2020 Chronic kidney disease stage 3 10/27/2020 Essential hypertension 10/27/2020 Hyperlipidemia 10/27/2020 Hyperparathyroidism due to renal insufficiency 0 10/27/2020 Renal stone 10/27/2020 Immunizations Immunization Administration Dates Next Due Influenza Split High Dose Preservative Free IM 1 Influenza Whole 04/13/2020 Pneumococcal Conjugate 13-Valent 06/17/2014 Pneumococcal Polysaccharide 12/15/2014 Zoster 04/27/2014 Social History Tobacco Use Types Packs/Day Years Used Date Smoking Tobacco: Former Smokeless Tobacco: Never Tobacco Cessation:Counseling Given: Not Answered Alcohol Use Standard Drinks/Week Comments No 0 (1 standard drink = 0.6 oz pur e alcohol) Comments Unknown Sex and Gender Information Value Date Recorded Sex Assigned at Not on file Legal Sex Female 5:16 PM EST Gender Identity Not on file Sexual Orientation Not on file Last Filed Vital Signs Vital Sign Reading Time Taken Comments Blood Pressure 153/86 03/15/2024 3:41 PM EDT Pulse 76 03/15/2024 3:41 PM EDT Temperature - - Respiratory Rate - - Oxygen Saturation 98% 03/15/2024 3:41 PM EDT Inhaled Oxygen Concentration - - Weight 51.3 kg (113 lb 3.2 oz) 03/15/2024 3:41 P M EDT Height 167.6 cm (5' 6 ) 03/15/2024 3:41 PM EDT Body Mass Index 18.27 03/15/2024 3:41 PM EDT Plan of Treatment Upcoming Encounters Date Type Department Care Team (Late st Contact Info) Description 01/07/2025 11:00 AM EDT Office Visit [facility] [address] [phone] Juan Pablo Cox MD [address] [phone] Health Maintenance Due Date Last Done Comments Pneumococcal Vaccine: 50+ Years Completed 05/18/2016, 12/15/2014, 06/17/2014, Additional history exists Pneumococcal Vaccine: Peds (0 to 5 Years) and At-Risk Patients (6 to 49 Years) Discontinued 05/18/2016, 12/15/2014, 06/17/2014, Additional history exists Influenza Vaccine Completed 06/09/2024, , 05/11/2022, Additional history exists Hepatitis B Vaccine Aged Out No longe r eligible based on patient's age to complete this topic Insurance [address] [place] [id number] Medicaid [place] Medicare Medicaid [place] Medicare Care Teams Neurodiagnostic Technologist Relationship Specialty Start Date End Date Kinza Salazar [address] [place] [address] PCP - General 08/19/23
== END 2024-12-15 10:21 | disposition home or self-care (01) ==
LOC: HO.HKAS 09:48
PROVIDERS: PCP Internal Medicine; Visit Provider Internal Medicine Hypertension Specialist
DX: N18.9 Chronic kidney disease, unspecified (principal); E21.3 Hyperparathyroidism, unspecified; N20.0 Calculus of kidney; J44.9 Chronic obstructive pulmonary disease, unspecified; N39.0 Urinary tract infection, site not specified
CPT/HCPCS: 99214

== ENCOUNTER → 2024-12-15 09:48 | Outpatient (BNVA) | payer MEDICARE, MEDICAID, SELFPAY | PROVIDERS: PCP Internal Medicine; Visit Provider Internal Medicine Hypertension Specialist | DX: N18.9 Chronic kidney disease, unspecified (principal); N20.0 Calculus of kidney; N39.0 Urinary tract infection, site not specified; J44.9 Chronic obstructive pulmonary disease, unspecified; E21.3 Hyperparathyroidism, unspecified | CPT/HCPCS: 99212 ==

== ENCOUNTER 2025-03-09 11:17 | Outpatient (AMB) | payer MEDICARE, MEDICAID, SELFPAY ==
--- OUTSIDE RECORDS SUMMARY | 2025-02-28 14:30 | XMS_ITS | Encounter Summary ---
Author Organization [facility] Address [address] [place] [address] [place] [phone] Phone Care Team Providers Care Plugman Name Role Phone Srinivasa Perez MD Primary Care Provider + Chau Live MD Unavailable Farzana Castro RN Unavailable [email or web address] Reason for Visit * Reason Comments Follow-up Encounter Details Date Type Department Care Team (Late st Contact Info) Description 02/28/2025 2:30 PM EDT [facility], [facility] [place] [address] [facility], [address]th [place] [address] Simi Arciniega, COCOA ROOM OPERATOR [address] [place] [address] [email or web address] Max Rodriguez MD [address] [place] [id number] [email or web address] Gastrointestinal stromal tumor (GIST) (Primary Dx) Social History Tobacco Use Types Packs/Day Years Used Date Smoking Tobacco: Former Cigarettes Smokeless Tobacco: Never Child or Family Care Answer Date Record ed Do you have problems with on e of the following making it difficult for you to work, study, or receive health care? No 05/07/2024 Education Answer Date Recorded Are you interested in more education? Not on fouzia e 04/20/2024 Are you concerned about learning? Not on file 04/20/2024 No 04/20/2024 No 04/20/2024 Food Answer Date Recorded Within the past 6 months we worried whether our food would run out before we got money to buy more. Sometimes True 05/07/2024 Within the past 6 months the food we bought just didn't last and we didn't have enough money to get more. I choose not to answer 05/07/2024 Residential Stability Answer Date Recor ded What is your housing situation today? I have sharmila sing 05/07/2024 How many times have you move d in the past 12 months? Zero (I did not move) 05/07/2024 Paying for Meds Answer Date Recorded Do you have trouble paying for medicines? No 05/07/2024 Paying Utility Bills Answer Date Record ed Do you have trouble paying your heating or elect ricity bill? No 05/07/2024 Transportation Answer Date Recorded Has the lack of transportati on kept you from medical appointments or from getting medications? No 05/07/2024 Digital Access Answer Date Recorded No 04/20/2024 No 04/20/2024 Reliable internet access at home? Not on file 04/20/2024 Device with a working camera? Not on file Comments Unknown Sex and Gender Information Value Date Recorded Sex Assigned at Female 04/20/2024 1:38 PM EDT Legal Sex Female 10:06 PM EDT Gender Identity Female 04/20/2024 1:38 PM EDT Sexual Orientation Straight 04/20/2024 1: 38 PM EDT documented as of this encounter Progress Notes * Simi Arciniega NP - 02/28/2025 2:30 PM EDT Images from the original note were not included. Subjective: Patient ID: Gloria Buckley is a wali 79 y.o. female with a gastrointestinal stromal tumor (GIST). She presents today for a toxicity assessment following initiation of Sutent at 12.5mg daily one week ago. She is present on today's VV alone. Dx: 1. Gastrointestinal stromal tumor (GIST) Chief Complaint Patient presents with Follow-up Oncology History Gastrointestinal stromal tumor (GIST) 12/06/2024 Initial Diagnosis Gastrointestinal stromal tumor (GIST) 12/13/2024 - 12/13/2024 Systemic Therapy Control; IMATINIB Max Rodriguez MD 02/21/2025 - Systemic Therapy Palliative; Sunitinib 37.5 mg on days 1-28 / cycle 28 days Max Rodriguez MD The patient visit today, 02/28/2025, was conducted via telephone. Patient is: An established patient Location of Provider: hospital / clinic Location of Patient: Home Patient Consent to Telephone Visit: YES, 02/28/2025 Phone Visit was performed in lieu of a Video Visit due to technical difficulties Total time spent on 02/28/2025 for this telephone visit includes time reviewing, documenting, and obtaining, clinical information, coordinating with the care team and/or other specialists, and counseling the patient: 60 minutes. SARCOMA HISTORY: (reference only) 2020: Found on EGD to have a 7 mm submucosal nodule in the second portion of the duodenum, pathology was benign November 2021: EGD/EUS again showed the above nodule with EUS findings consistent with a lipoma and nonspecific chronic inflammatory changes in the pancreas 02/19/23: MRI abdomen - 3.8 x 2.4 x 3.7 cm mass 01/01/24: CT abd/pelvis1. There is a mass In the left upper abdomen which appears to be part of the stomach wall, This was present on the previous chest CT dated 12/13/2020, but appears to have slightlyenlarged. This may represent a gastrointestinal stromal tumor 2. There is also an exophytic mass which appears to orlginate from the right kidney. This may represent a cyst, though it has a similar appearance to the lesion In the left upper abdomen. 3. There are multiple Ilver cysts. 4. There is a large nonobstructing stone In the right kidney, There is also a small nonobstructing stone in the left kidney, No stones are seen In either ureter orbladder. January 15, 2024: EGD/EUS showed a new 5.1 x 6.6 cm left upper quadrant lesion displacing the liver that appeared to move independently of the gastric wall. Biopsy of the left upper quadrant gastric massrevealed GIST. There is a separate adrenal neoplasm measuring 3.6 x 1.7 cm cm that on ultrasound was homogenous and well-circumscribed and was perigastric at about 45 cm in the gastric body. 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 April 12, 2024: MRI of the abdomen showed a 7 cm left upper quadrant mass arising from the stomach. There additionally were separate adrenal nodules and significant renal artery stenosis. 06/18/24: Planned robotic laparoscopic gastrectomy but was canceled due to COPD/pulmonary issueswithmultiple (at least 2) admissions for COPD exacerbations/PNA. 09/24/24: Reported to ED for evaluation of hypokalemia 09/24/24: XR Abdomen: 1. 2.4 cm calcification overlying the right upper quadrant which could represent a gallstone. Consider right upper quadrant ultrasound 2. 0.4 cm calcification overlying the left renal shadow which could represent renal calculus. 11/24/24: CT A/P: Compared to MRI abdomen dated 04/12/2024:1. Similar 5.8 cm left upper quadrant mass likely arising from the stomach, likely a gastrointestinal stromal tumor.2. Similar bilateral adrenal adenomas.3. New S1 and bilateral sacral alar insufficiency fractures.4. Similar bilateral nephrolithiasis. 12/13/24: Started imatinib 400 mg. 01/10/25: Imatinib 400 mg on hold due to side effects including nausea with food aversion, constipation, headache, and profound fatigue. Planned to switch to imatinib 100 mg. 01/18/25: Resumed imatinib 100 mg. Since lower dose, experienced foot swelling, watery eyes, eyelid swelling. 02/07/25: CT A/P: Since 11/25/2023: 1. Unchanged gastric GIST 2. No evidence of metastatic disease inthe abdomen and pelvis by noncontrast CT. HPI Gloria Buckley reports feeling a little confused, upset and a little overwhelmed similar to the last several weeks. She took her first dose of Sutent 12.5mg 1 tab on 02/24 around 4pm with food. She reports she felt okay after dosing with no significant change. 02/18 Urine protein/creatinine ratio 688 (0-200) Urine albumin/creatinine ratio 226 (0-29) BUN 21 Cr 1.5 02/21 BUN 20 Cr 1.89 For hypertension: She continues on labetolol 100mg BID and amlodipine 10mg once daily with plans to decrease to 5mg. She was started on lasix and directed to take 1/2 tab for 10mg once daily Last dose of potassium was about a week ago. Plan to add on losartan 25mg daily- not yet started. Last BM 3 days ago on Metamucil, mandarin oranges and dulcolax. She describes at home having small heard dark stools. Review of Systems All other systems reviewed and are negative. CBC and differential Order: [id number] Collected 02/21/2025 13:17 Status: Final result Next appt: 03/03/2025 at 02:00 PM in [facility] (Gina Eduardo, [facility]) Dx: Gastrointestinal stromal tumor (GIST) Test Result Released: Yes (seen) Specimen Information: Blood 0 Result Notes Component Ref Range & Units 02/21/25 1317 02/07/25 1204 01/19/25 1454 01/10/25 1214 12/27/24 1329 12/06/24 1250 05/07/24 1220 WBC 4.00 - 10.00 K/uL 6.52 6.81 6.07 5.78 7.52 7.14 7.78 RBC 3.90 - 6.00 M/uL 3.40 Low 3.30 Low 3.36 Low 3.32 Low 3.63 Low 3.71 Low 3.96 HGB 11.5 - 16.4 g/dL 11.0 Low 10.5 Low 10.7 Low 10.6 Low 11.6 12.0 12.3 HCT 36.0 - 48.0 % 33.2 Low 32.0 Low 32.8 Low 31.5 Low 34.2 Low 35.4 Low 36.4 PLT 150 - 450 K/uL 177 207 190 162 187 193 276 MCV 80.0 - 100.0 fL 97.6 97.0 97.6 94.9 94.2 95.4 91.9 MCH 27.0 - 32.0 pg 32.4 High 31.8 31.8 31.9 32.0 32.3 High 31.1 MCHC 32.0 - 36.0 g/dL 33.1 32.8 32.6 33.7 33.9 33.9 33.8 RDW 11.5 - 14.5 % 13.2 13.2 13.1 12.3 12.1 12.3 12.0 MPV 8.4 - 12.0 fL 9.5 9.8 9.1 9.3 9.6 9.3 9.7 R NRBC 0 /100 WBCs 0.00 0.00 0.00 0.00 0.00 0.00 0.00 ABSOLUTE NRBC 0 K/uL 0.00 0.00 0.00 0.00 0.00 0.00 0.00 DIFF METHOD Auto Auto Auto Auto Auto Auto NEUTS 48.0 - 76.0 % 61.9 72.2 60.3 65.7 72.4 59.8 LYMPHS 18.0 - 41.0 % 26.4 18.8 27.3 25.4 20.9 30.4 MONOS 4.0 - 11.0 % 9.0 7.0 10.4 6.2 4.8 7.0 EOS 0.0 - 5.0 % 2.1 1.3 1.5 2.2 1.1 2.1 BASOS 0.0 - 1.5 % 0.3 0.3 0.2 0.3 0.3 0.3 % IMMATURE GRANS 0.0 - 1.0 % 0.3 0.4 0.3 0.2 0.5 0.4 ABSOLUTE NEUTS 1.92 - 7.60 K/uL 4.03 4.91 3.66 3.79 5.45 4.27 ABSOLUTE LYMPHS 0.72 - 4.10 K/uL 1.72 1.28 1.66 1.47 1.57 2.17 ABSOLUTE MONOS 0.16 - 1.10 K/uL 0.59 0.48 0.63 0.36 0.36 0.50 ABSOLUTE EOS 0.00 - 0.50 K/uL 0.14 0.09 0.09 0.13 0.08 0.15 ABSOLUTE BASOS 0.00 - 0.15 K/uL 0.02 0.02 0.01 0.02 0.02 0.02 ABS IMMATURE GRANS 0.00 - 0.10 K/uL 0.02 0.03 0.02 0.01 0.04 0.03 Specimen Collected: 02/21/25 13:17 Last Resulted: 02/21/25 13:37 Comprehensive metabolic panel Order: [id number] Collected 02/21/2025 13:17 Status: Final result Next appt: 03/03/2025 at 02:00 PM in [facility] ([facility] Edu[facility], [facility]) Dx: Gastrointestinal stromal tumor (GIST) Test Result Released: Yes (not seen) Specimen Information: Blood 0 Result Notes 2 HM Topics Component Ref Range & Units 02/21/25 1317 02/07/25 1204 01/19/25 1454 01/10/25 1214 12/27/24 1535 12/27/24 1329 12/06/24 1250 SODIUM 136 - 145 mmol/L 140 139 139 134 Low 135 Low 137 138 POTASSIUM 3.4 - 5.1 mmol/L 4.7 3.7 3.8 3.7 4.4 5.5 High 3.6 CHLORIDE 98 - 107 mmol/L 99 100 100 97 Low 98 101 97 Low CO2 22 - 31 mmol/L 27 26 27 25 27 27 29 BUN 6 - 23 mg/dL 20 22 21 26 High 27 High 29 High 32 High CREATININE 0.50 - 1.20 mg/dL 1.89 High 1.72 High 1.90 High 2.19 Critically High 2.14 Critically High 2.09 Critically High CM 1.98 High GLUCOSE 70 - 100 mg/dL 96 96 90 150 High 106 High 130 High 109 High ALBUMIN 3.5 - 5.2 g/dL 4.4 4.2 4.3 4.2 4.2 4.1 TOTAL PROTEIN 6.4 - 8.3 g/dL 6.4 6.4 6.4 6.3 Low 6.2 Low 6.7 CALCIUM 8.8 - 10.7 mg/dL 9.1 8.6 Low 9.0 9.2 9.6 9.9 9.7 ALKALINE PHOSPHATASE 35 - 104 U/L 68 68 70 68 72 82 TOTAL BILIRUBIN 0.2 - 1.2 mg/dL 0.6 0.8 0.5 0.5 0.5 0.4 AST <33 U/L 22 25 24 38 High 37 High 30 ALT <34 U/L 12 16 15 22 20 16 GLOBULIN 2.3 - 4.2 g/dL 2.0 Low 2.2 Low 2.1 Low 2.1 Low 2.0 Low 2.6 EGFR >59 mL/min/1.73m2 27 Low 30 Low CM 27 Low CM 23 Low CM 23 Low CM 24 Low CM 26 Low CM Comment: Estimated glomerular filtration rate calculated using the CKD-EPI refit equation. ANION GAP 7 - 17 mmol/L 14 13 12 [address] Chest Without Contrast Result Date: 02/23/2025 History: Lung nodules. Personal history of gastrointestinal stromal tumor. Comparison: Thoracic CTA02/21/22 Technique: Helical volumetric imaging of the thorax was performed without IV contrast. DLP:152.82 mGy/cm Viralizeer Iterative reconstruction technique Findings: The trachea and central bronchial tree remain patent. Centrilobular and paraseptal emphysema are again noted. Minimalbiapical juxtapleural opacity with traction bronchiectasis is without significant change, consistent with scarring. Thick bandlike opacity is seen in the inferior lingula and at the base of the left lower lobe anteriorly, compatible with atelectasis or scar, without significant change. Rare homogene ously calcified nodules are consistent with old granulomatous disease. A 3 mm solid, noncalcified nodule in the left lower lobe (image 131 series 3) is unchanged. A 3 mm solid, noncalcified nodule isunchanged in the anterior right lower lobe (image 160). No suspicious developing pulmonary nodule is seen. No pleural or pericardial effusions are identified. Moderate multichamber cardiomegaly is noted, with the heart having increased in size since the 2021 study. The ascending thoracic aortic diameter is 4 cm, slightly increased from previous. Atherosclerotic calcification of the thoracic aortaand coronary arteries is again seen. Partial (left) thyroidectomy sequela are again noted. No developing thoracic lymphadenopathy is seen. A small portion of the upper abdomen included on the lowest images through the thorax is remarkable for scattered hepatic cysts and a 3.5 x 2.5 cm left adrenal mass with CT numbers compatible with an adenoma. The adrenal lesion is visible dating back to a [address] at this facility. A 5.8 x 5.3 cm circumscribed round solid mass is seen in the left upper quadrant, abutting the gastric fundus, reported on an outside CT abdomen/pelvis from 11/24/24 ([facility]), presumably the patient's known gastrointestinal stromal tumor. A staghorn calculus is partially imaged in the right kidney and there are additional smaller nonobstructing bilateral renal calculi. Splenic calcifications are consistent with old granulomatous disease. Multiple thoracic vertebral compression fractures are without significant change from 2021. There is no significant retropulsion associated with these fractures. Impression: 1. Stable sub-5 mm pulmonary nodules since 2021. No suspicious developing nodule is seen. 2. Moderate cardiomegaly, with an increase in cardiac size since 2021. 3. No developing thoracic lymphadenopathy. 4. Multiple upper abdominal abnormalities, partially imaged, similar to what was reported on an outside abdominal CT from 11/24/24. [place] ([id number]) -------- FINAL REPORT -------- Dictated By: Joan Crooks Dictated Date: 02/23/2025 08:49 ET Assigned Physician: Joan Crooks Reviewed and Electronically Signed By: Joan Crooks Signed Date: 02/23/2025 09:05 ET Workstation ID: [id number] Transcribed By: Self Edit Transcribed Date: 02/23/2025 08:[address] Abdomen/Pelvis Result Date: 02/07/2025 CT ABDOMEN/PELVIS WITHOUT CONTRAST Referring clinician's provided indication for this examination in Epic: * Soft tissue sarcoma, (GIST), follow up; gastric gist, on imatinb TECHNIQUE: Multidetector-row CT of the abdomen and pelvis was performed without intravenous contrast using tailored dose modulation techniques. Images were reconstructed in the axial, coronal, and sagittal planes. COMPARISON:CT ABDOMEN/PELVIS WITHOUT CONTRAST ABSENCE OF INTRAVENOUS CONTRAST DECREASES SENSITIVITY FOR DETECTION OF FOCAL LESIONS AND VASCULAR PATHOLOGY. FINDINGS: Lower Chest: No consolidation or pleural effusions. Minor subsegmental atelectasis. Calcified granuloma in the right middle lobe. Liver: Unchanged multiple cysts. No new discrete focal lesion along the absence of intravenous contrast. Biliary: No biliary ductal dilatation. No calcified gallstone. Spleen: No splenomegaly or focal lesions. Similar calcified granulomas. Splenule. Pancreas: No masses or ductal dilatation. Adrenal Glands: Unchanged bilateral adrenal adenomas, measuring 3 cm on the left and 2 cm on the right. Kidneys/Ureters: Similar bilateral nephrolithiasis measuring up to 3.2 cm in the right renal sinus. Similarbilateral renal cysts. No hydronephrosis. Bowel: Unchanged 5.8 x 5.8 by 6.7 cm exophytic intramuralmass at the curvature of the stomach (2:14). No significant change in internal attenuation. Similar abutment of the spleen. No bowel obstruction. Peritoneum/Retroperitoneum: No masses, pneumoperitoneum, or fluid. Lymph Nodes: No enlarged lymph nodes. Pelvic Organs/Bladder: Underdistended bladder. Prior hysterectomy. Pelvic floor laxity with mild tricompartmental descent. No discrete mass. Vessels: Atherosclerosis. No abdominal aortic aneurysm. Bones/Soft Tissues: No suspicious osseous lesion. Diffuse osteopenia. Unchanged compression deformities of T11, L3 and L5. Similar 0.9 cm retropulsion at L5. Similar sacral deformity related to insufficiency fracture. Since 11/25/2023: 1. Unchanged gastric GIST 2. No evidence of metastatic disease in the abdomen and pelvis by noncontrast CT. 02/25 UA outside lab: trace protein Assessment/Plan: Gloria Buckley is a 79 y.o. female with a GIST intolerant of imatinib on the phone today for a close interval toxicity assessment following initiation of Sutent 12.5mg QD. GIST -took Sutent 12.5mg x 1 02/24 -she tolerated this well c/w imatinib -she already feels this is a better fit -she became overwhelmed with calls re: plans for UA and med changes for her BP and she noted confusion and fear regarding her kidney function -she decreased amlodipine to 5mg and added lasix 10mg but did not start losartan -she d/c'd her K supplement as directed by someone but she is unsure whom -she felt so overwhelmed she stopped Sutent after 1 dose as she did not receive a call following her UA -she will HOLD Sutent while she starts new rec BP regimen -she will plan to start Sutent 12.5mg daily x 4 doses -she will RTC in 1 week to see me in f/u with labs 2. HTN -amlodipine 5mg QG -labetolol 100mg BID -lasix 10mg Qam -losartan 25mg once daily -check daily BP and will call Nephrology team with elevated readings/ intolerability -holding her K as directed 3. Constipation -increase hydration -cont daily Metamucil (she finds this helpful) -MOM 30 ml x 1 with hot tea or warm water -once bowels moving will cont Metamucil and add stool softener rec 1 cap BID and increase to 2 cap BID PRN to start -reviewed Sutent side effect of diarrhea She will RTC in 1 week. She will call with any problems, questions or concerns. I personally spent a total of 75 minutes on care for this patient on the date of the encounter. This includes [id number] time during the visit as well as non [id number] time spent on chart review, documentation, and care coordination. ?? Simi Arciniega [facility]- [facility] [address] [place] [phone] P [phone] F [phone] E documented in this encounter Plan of Treatment Upcoming Encounters Date Type Department Care Team (Late st Contact Info) Description 06/21/2025 10:20 AM EST Office Visit [facility] [address] [place] [id number] Catherine Amador MD [address] [place] [phone] [email or web address] documented as of this encounter Visit Diagnoses Diagnosis Gastrointestinal stromal tumor (GIST)- Primary documented in this encounter Additional Health Concerns Assessment Noted Time PHQ-9 Depression Total Score: 14 025 8:38 AM EDT PHQ-2 Depression Total Score: 6 01/20/20 25 1:43 PM EDT documented as of this encounter Care Teams Plugman Relationship Specialty Start Date End Date Srinivasa Perez MD [address] [place] [address] PCP - General Internal Medicine 04/20/24 Chau Live MD [address] [place] [address] [email or web address] Referring Physician 04/20/24 Farzana Castro, RN [address] [place] [id number] [email or web address] Primary Infusion Nurse 12/20/24 documented as of this encounter Additional Source Comments The information contained in this document represents components of the legal health record. It is not the complete legal health record.[facility]
[2025-03-09 11:19] VITALS: BP 130/60; PULSE 71; O2SAT 97; BMI 19.5
--- NOTE | 2025-03-09 11:19 | HO.NEPHOV ---
Vital Signs 03/09/25 11:19 Height 5 ft 5 in Weight 117 lb BMI 19.5 BP 130/60 Blood Pressure Location Lt brachial Position Sitting Pulse 71 Pulse Source Pulse Oximeter Pulse Oximetry (%) 97 Oxygen Delivery Method Room Air Intake Visit Reasons: FU It Technical Specialist Required: No Accompanied by: Friend Allergies morphine Allergy (Unknown, Verified 03/09/25 11:21) Vomiting Medication List - Last Reconciled 03/09/25 by Will Singh MD amlodipine 10 mg PO DAILY atorvastatin mg PO DAILY cinacalcet 60 mg PO DAILY duloxetine 20 mg PO DAILY ukhlvpmpwln-csbfztqle-itmzbyza 100-62.5-25 mcg (Trelegy Ellipta) 1 ea inhalation DAILY furosemide 20 mg PO DAILY imatinib 400 mg PO DAILY labetalol 200 mg PO BID lorazepam 0.5 mg PO Q6H PRN omeprazole 20 mg PO DAILY potassium chloride (Klor-Con) 20 mEq PO DAILY HPI Comments Details: Gloria is a 78-year-old woman with a hypertension, renal stones, bipolar disorder and a history of CKD Used to see Switched to my care since his skilled nursing Accompanied by friend She has a complicated history including calcium pyrophosphate deposition disease and history of kidney stones. History of hyperparathyroidism . 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 04/02/24 ; CT with IV contrast was cancelled. 06/30/24; Surgery cancelled and waiting for pulm evaluation; Recent fall with knee injury 10/27/24 : Accompanied by daughter today. She has had few hospitalizations with pneumonia and other issues. She developed TANVI and renal function has improved. She also had hypokalemia requiring potassium supplementation. She was still waiting for Pulmonary evaluation. 12/15/24 Last month she was in ER for hypokalemia s/p IV KCL and now on PO KCL No diarrhea . No polyuria. No nocturia Imatinib has been started as of 12/13/24 03/09/25 Being treated by [facility] for malignancy Now on Sunitinib 12.5 mg DID not go for followup appointment BP has been fluctuating PFSH Family History Mother Hypertension High cholesterol Crohn's disease COPD (chronic obstructive pulmonary disease) Father Brain cancer Social History Alcohol intake: never Patient Tobacco Use Status: Former Tobacco user Physical Exam Vital Signs: Last Vital Signs Pulse 71 03/09/25 11:19 BP 130/60 03/09/25 11:19 Pulse Ox 97 03/09/25 11:19 Oxygen Delivery Method Room Air 03/09/25 11:19 BMI result Body Mass Index 19.5 Neck Neck: Yes supple Resp Auscultation: clear to auscultation bilaterally Cardio Palpation: no palpable S3 Heart sounds: no rubs GI Palpation (GI): Soft to palpation Auscultation: normal bowel sounds Neuro Motor exam (neuro): no asterixis Results Reviewed Nephrology Results: Hgb, (12.0-16.0) 10.9 g/dl L 10/27/24 WBC, (4.8-10.8) 6.9 X10*3/uL 10/27/24 Plt Count, (160-400) 247 X10*3/uL 10/27/24 Sodium, (135-145) 138 mmol/L 10/27/24 Potassium, (3.3-5.1) 4.1 mmol/L 10/27/24 Chloride, (96-108) 102 mmol/L 10/27/24 Carbon Dioxide, (22-29) 29 mmol/L 10/27/24 BUN, (9-16) 33 mg/dL H 10/27/24 Creatinine, (0.5-1.4) 1.42 mg/dL H 10/27/24 Calcium, (8.4-10.2) 9.2 mg/dL 10/27/24 Phosphorus, (2.7-4.5) 3.6 mg/dL 10/27/24 PTH Intact, (8.7-77.1) 147.7 pg/mL H 10/27/24 Urine Protein, (Neg-Trace) 30 (1+) mg/dL H 10/27/24 Urine Creatinine 161.79 mg/dL 11/19/23 Assessment & Plan Assessment & Plan (1) CKD (chronic kidney disease): Code(s): N18.9 - Chronic kidney disease, unspecified Category: Medical (2) Hyperparathyroidism: Code(s): E21.3 - Hyperparathyroidism, unspecified Category: Medical (3) Nephrolithiasis: Code(s): N20.0 - Calculus of kidney Category: Medical (4) COPD (chronic obstructive pulmonary disease): Code(s): J44.9 - Chronic obstructive pulmonary disease, unspecified Category: Medical (5) UTI (urinary tract infection), uncomplicated: Code(s): N39.0 - Urinary tract infection, site not specified Category: Medical Plan Elderly woman with CKD in a setting fo HTN She has CKD 3B Another episode of AK - cr at 2.1 on 12/06/24 Most recent EGFR is 33 mL/minute cystic mass above the kidneys 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 Being followed by surgical oncology. CT scan with IV contrast has been recommended. She is at moderate risk for contrast induced nephropathy. The risks and benefits were discussed with the patient. The benefits outweigh risks and if she requires CT scan with contrast we should proceed with the same. She should receive IV hydration prior to IV contrast administration. scheduled for MRI ; Management per Oncology Recheck renal panel along with potassium levels For now she will continue with same dose of potassium supplementation. Started on Imatinib on 12/15/24 Watch creatinine closely Follows in [facility] 03/09/25: BP well controlled Labs ordered for today Encouraged to follow up with [facility] Orders: Orders Complete Blood Count no Diff Today N18.9 - Chronic kidney disease, unspecified Comprehensive Met. Panel Today N18.9 - Chronic kidney disease, unspecified Total Protein Urine Random Today N18.9 - Chronic kidney disease, unspecified UA and rflx microscopic Today N18.9 - Chronic kidney disease, unspecified Basic Metabolic Panel 1 Month N18.9 - Chronic kidney disease, unspecified Creatinine Urine Today N18.9 - Chronic kidney disease, unspecified Medications: New amlodipine 10 mg PO DAILY 90 tabs 2RF Coding Level of Care Code Est Pt Level 4 (24244) Diagnoses CKD (chronic kidney disease) N18.9 Hyperparathyroidism E21.3 Nephrolithiasis N20.0 COPD (chronic obstructive pulmonary disease) J44.9 UTI (urinary tract infection), uncomplicated N39.0
--- OUTSIDE RECORDS SUMMARY | 2025-03-09 12:20 | XMS_ITS | Encounter Summary ---
Author Organization [facility] Address [address] [address] Phone Care Team Providers Care Sr. Strategic Sourcing Manager Name Role Phone Srinivasa Perez MD Primary Care Provider + Encounter Details Date Type Department Care Team (Late st Contact Info) Description 02/09/2025 Office Communication [facility] [address] [address] Shalom Yost [address] [address] Social History Tobacco Use Types Packs/Day Years [...] on file documented as of this encounter Plan of Treatment Upcoming Encounters Date Type Department Care Team (Late st Contact Info) Description 07/01/2025 11:30 AM EST Office Visit [facility] [address] [address] Juan Pablo Cox MD [address] [address] documented as of this encounter Visit Diagnoses Not on filedocumented in this encounter Care Teams Sr. Strategic Sourcing Manager Relationship Specialty Start Date End Date Srinivasa Perez MD [address] [place] [phone] PCP - General Internal Medicine 01/07/25 documented as of this encounter
--- OUTSIDE RECORDS SUMMARY | 2025-03-09 12:20 | XMS_ITS | Encounter Summary ---
Author Organization [facility] Address [address] [place] [address] Care Team Providers Care Sales Effectiveness Manager Name Role Phone Cornelius Perez MD Primary Care Provider [phone] Encounter Details Date Type Department Care Team (Late st Contact Info) Description 09/09/2024 Lab Requisition [facility] - Main Lab [address] [facility] [place] [address] Nohemi Alejandro MD [address] [place] [phone] Essential (primary) hypertension Social History Tobacco Use Types Packs/Day Years Used Date Smoking Tobacco: Former Cigarettes Q uit: 08/11/2014 Smokeless Tobacco: Never Alcohol Use Standard Drinks/Week Comments No 0 (1 standard drink = 0.6 oz pur e alcohol) Comments No Sex and Gender Information Value Date Recorded Sex Assigned at Female 09/24/2024 4:05 PM EST Legal Sex Female 6:24 PM EST Gender Identity Female 09/24/2024 4:05 PM EST Sexual Orientation Straight 09/24/2024 4: 05 PM EST documented as of this encounter Functional Status * Are you deaf or do you have serious difficulty hearing? Answer Date of Assessment Author No 06/12/2024 9:46 AM EDT Shamika Kinney RN * Are you blind or do you have serious difficulty seeing, even when wearing glasses? Answer Date of Assessment Author No 06/12/2024 9:46 AM EDT Shamika Kinney RN * Do you have serious difficulty walking or climbing stairs? Answer Date of Assessment Author No 06/12/2024 9:46 AM EDT Shamika Kinney RN * Do you have serious difficulty dressing or bathing? Answer Date of Assessment Author No 06/12/2024 9:46 AM EDT Shamika Kinney RN * Because of a physical, mental, or emotional condition, do you have serious difficulty doing errandsalone such as visiting the doctor? Answer Date of Assessment Author No 06/12/2024 9:46 AM EDT Shamika Kinney RN documented as of this encounter Mental Status * Because of a physical, mental, or emotional condition, do you have serious difficulty concentrating, remembering, or making decisions? (5 years old or older) Answer Entry Date Author No 06/12/2024 9:46 AM EDT Shamika Kinney RN documented in this encounter Plan of Treatment Upcoming Encounters Date Type Department Care Team (Late st Contact Info) Description 04/14/2025 9:50 AM EDT Office Visit [facility] [address] [address] Zuly Sood MD 300 [place] [address] 09/05/2025 1:00 PM EST Office Visit Pulmonolgy - [place] [address] [address] Eron Camarillo MD [address] [address] documented as of this encounter Procedures Procedure Name Priority Date/Time Associated Diagnosis Comments COMPLETE BLOOD COUNT Routine 09/09/2024 6:42 AM EST Essential (primary) hypertension BASIC METABOLIC PANEL Routine 09/09/2024 6:42 AM EST Essential (primary) hypertension documented in this encounter Results * (ABNORMAL) Basic metabolic panel (09/09/2024 6:42 AM EST) Sodium 139 133 - 145 mmol/L LAB CHEMISTRY METHOD 09/09/2024 12:02 PM [facility] Potassium 4.0 3.5 - 5.5 mmol/L LAB CHEMISTRY METHOD 09/09/2024 12:02 PM [facility] Chloride 100 96 - 110 mmol/L LAB CHEMISTRY METHOD 09/09/2024 12:02 PM [facility] CO2 34(H) 21 - 32 mmol/L LAB CHEMISTRY METHOD 09/09/2024 12:02 PM [facility] Anion Gap 5 3 - 11 LAB CHEMISTRY METHOD 09/09/2024 12:02 PM [facility] Glucose 95 70 - 100 mg/dL LAB CHEMISTRY METHOD 09/09/2024 12:02 PM [facility] BUN 25 5 - 25 mg/dL LAB CHEMISTRY METHOD 09/09/2024 12:02 PM [facility] Creatinine 1.69(H) 0.50 - 1.10 mg/dL LAB CHEMISTRY METHOD 09/09/2024 12:02 PM [facility] eGFR 31(L) >=60 mL/min/1. 73m2 LAB CHEMISTRY METHOD 09/09/2024 12:02 PM [facility] Comment:Calculation based on the Chronic Kidney Disease Epidemiology Collaboration (CKD-EPI) equation refit without adjustment for race. BUN/Creatinine Ratio 14.8 LAB CHEMISTRY METHOD 09/09/2024 12:02 PM [facility] Calcium 9.2 8.5 - 10.5 mg/dL LAB CHEMISTRY METHOD 09/09/2024 12:02 PM [facility] Blood Venous blood specimen / Unknown Venipuncture / Unknown 09/09/2024 6:42 AM EST 09/09/2024 10:20 AM EST us Rami A Ashkar MD LAB BLOOD ORDERABLES Final Resu lt [facility] [address] [place] [address], * (ABNORMAL) Complete blood count (09/09/2024 6:42 AM EST) WBC 6.4 4.8 - 10.8 K/mcL LAB HEMETOLOGY METHOD 09/09/2024 11:47 AM [facility] RBC 3.20(L) 3.80 - 4.80 M/mcL LAB HEMETOLOGY METHOD 09/09/2024 11:47 AM [facility] Hemoglobin 10.0(L) 11.5 - 16.0 g/dL LAB HEMETOLOGY METHOD 09/09/2024 11:47 AM [facility] Hematocrit 32.0(L) 35.0 - 47.0 % LAB HEMETOLOGY METHOD 09/09/2024 11:47 AM [facility] MCV 99.1(H) 79.0 - 98.0 FL LAB HEMETOLOGY METHOD 09/09/2024 11:47 AM [facility] MCH 31.0 27.0 - 32.0 pcg LAB HEMETOLOGY METHOD 09/09/2024 11:47 AM [facility] MCHC 31.3(L) 32.0 - 37.0 g/dL LAB HEMETOLOGY METHOD 09/09/2024 11:47 AM [facility] RDW 13.0 11.0 - 15.0 % LAB HEMETOLOGY METHOD 09/09/2024 11:47 AM [facility] Platelets 270 130 - 400 K/mcL LAB HEMETOLOGY METHOD 09/09/2024 11:47 AM [facility] MPV 10.0 7.0 - 11.0 FL LAB HEMETOLOGY METHOD 09/09/2024 11:[address] [facility] NRBC 0.0 <1.0 % LAB HEMETOLOGY METHOD 09/09/2024 11:[address] [facility] NRBC Absolute 0.00 <0.10 K/mcL LAB HEMETOLOGY METHOD 09/09/2024 11:[address] [facility] Blood Venous blood specimen / Unknown Venipuncture / Unknown 09/09/2024 6:42 AM EST 09/09/2024 10:20 AM EST us Nohemi Alejandro MD LAB BLOOD ORDERABLES Final Resu lt [facility] [address] [place] [address], [place] [phone] documented in this encounter Visit Diagnoses Diagnosis Essential (primary) hypertension Unspecified essential hypertension documented in this encounter Additional Health Concerns Infection Onset Date Last Indicated Resolved Time COVID-19 08/17/2024 08/17/2024 09/16/2024 7:05 PM EST documented as of this encounter Care Teams Sales Effectiveness Manager Relationship Specialty Start Date End Date Cornelius Perez MD [address] [place] [address] PCP - General Internal Medicine 12/14/20 documented as of this encounter
== END 2025-03-09 11:44 | disposition home or self-care (01) ==
LOC: HO.HKAS 11:17
PROVIDERS: PCP Internal Medicine; Visit Provider Internal Medicine Hypertension Specialist
DX: N18.9 Chronic kidney disease, unspecified (principal); E21.3 Hyperparathyroidism, unspecified; N20.0 Calculus of kidney; J44.9 Chronic obstructive pulmonary disease, unspecified; N39.0 Urinary tract infection, site not specified
CPT/HCPCS: 99214

== ENCOUNTER 2025-03-09 11:17 | Outpatient (REF) | payer MEDICARE, MEDICAID, SELFPAY ==
[2025-03-09 17:57] LABS: Appearance Urine Clear; Glucose Urine UA Negative (Negative); PH 6.0 (5.0-9.0); Specific Gravity - Urine 1.025 (1.005-1.025); UMIC TRIGGER UA YES
[2025-03-09 18:13] LABS: Hematocrit 34.3 % (37.0-47.0); Hemoglobin 11.1 g/dl (12.0-16.0); Mean Corpuscular HGB Conc 32.4 g/dl (31.0-35.0); Mean Corpuscular Hemoglobin 32.6 pg (27.0-33.0); Mean Corpuscular Volume 100.6 fL (80.0-98.0); NRBC Abs Auto 0.000 X10*3/uL (0.0-0.012); NRBC Pct Auto 0.0 /100WBC (0.0-0.2); Platelet Count 231 X10*3/uL (160-400); Red Blood Count 3.41 X10*6/uL (4.20-5.50); White Blood Count 5.8 X10*3/uL (4.8-10.8)
[2025-03-09 18:25] LABS: Alanine Aminotransferase 13 U/L (0-31); Albumin Level 4.0 g/dL (3.5-5.0); Alkaline Phosphatase 56 U/L (39-117); Anion Gap 13 (12-20); Aspartate Amino Transferase 22 U/L (5-31); Blood Urea Nitrogen 27 mg/dL (9-16); Calcium 8.9 mg/dL (8.4-10.2); Carbon Dioxide 30 mmol/L (22-29); Chloride 101 mmol/L (96-108); Estimated Glomerular Filt Rate 27; Potassium 3.7 mmol/L (3.3-5.1); Sodium 140 mmol/L (135-145); Total Protein 6.1 g/dL (6.5-8.0)
[2025-03-09 18:41] LABS: Total Protein Urine Random 70 mg/dL (<12)
== END 2025-03-09 11:18 | disposition home or self-care (01) ==
LOC: HO.HKASLDS 11:17
PROVIDERS: PCP Internal Medicine; Visit Provider Internal Medicine Hypertension Specialist
DX: I12.9 Hypertensive chronic kidney disease with stage 1 through stage 4 chronic kidney disease, or unspecified chronic kidney disease (principal); N18.32 Chronic kidney disease, stage 3b; E21.3 Hyperparathyroidism, unspecified; N39.0 Urinary tract infection, site not specified; J44.9 Chronic obstructive pulmonary disease, unspecified; F31.9 Bipolar disorder, unspecified; N20.0 Calculus of kidney; Z79.899 Other long term (current) drug therapy
CPT/HCPCS: 36415; 80053; 81001; 82570; 84156; 85027; 99212

== ENCOUNTER 2025-03-28 10:06 | Outpatient (REF) | payer MEDICARE, MEDICAID, SELFPAY ==
--- OUTSIDE RECORDS SUMMARY | 2025-03-28 11:01 | XMS_ITS | Encounter Summary ---
Author Organization [facility] Address [address] [facility] [address] [place] [address] Phone Care Team Providers Care Rn Quality Name Role Phone Srinivasa Perez MD Primary Care Provider + Chau Live MD Unavailable Farzana Castro RN Unavailable [email or web address] Will Singh MD Unavailable [phone] Encounter Details Date Type Department Care Team (Late st Contact Info) Description 01/17/2025 Telephone [facility], [facility] [place] [address] [place] [address], [address] [place] [address] Cari Nunez, ITZEL [address] [place] [phone] [email or web address] Social History Tobacco Use Types Packs/Day Years [...] PM EDT documented as of this encounter Plan of Treatment Upcoming Encounters Date Type Department Care Team (Late st Contact Info) Description 04/08/2025 10:30 AM EDT Office Visit Psychosocial Oncology, [address] [address] Rakesh Shepard MD [address] [place] [phone] [email or web address] 04/08/2025 11:30 AM EDT Office Visit [facility], [facility] [address], [address] [place] [address] Max Rodriguez MD [address] [place] [address] [email or web address] 06/21/2025 10:20 AM EST Office Visit [facility] [address] [place] [address] Catherine Amador MD [address] [place] [phone] [email or web address] documented as of this encounter Visit Diagnoses Not on filedocumented in this encounter Additional Health Concerns Assessment Noted Time PHQ-9 Depression Total Score: 14 025 8:38 AM EDT PHQ-2 Depression Total Score: 4 12/08/19 25 8:38 AM EDT documented as of this encounter Care Teams Rn Quality Relationship Specialty Start Date End Date Srinivasa Perez MD [address] [place] [address] PCP - General Internal Medicine 04/20/24 [place] [address] [place] [address] [email or web address] Referring Physician 04/20/24 Farzana Castro RN [address] [place] [address] [email or web address] Primary Infusion Nurse 12/20/24 Will Singh MD [address] [address] Nephrology 03/10/25 documented as of this encounter Additional Source Comments The information contained in this document represents components of the legal health record. It is not the complete legal health record.[facility]
--- OUTSIDE RECORDS SUMMARY | 2025-03-28 11:01 | XMS_ITS | Encounter Summary ---
Author Organization [facility] Address [address] [place] [address] Care Team Providers Care Production Machine Computer Operator Name Role Phone Cornelius Perez MD Primary Care Provider [phone] Encounter Details Date Type Department Care Team (Late st Contact Info) Description 02/22/2025 Telephone [facility] [place] [address] [address] Eron Camarillo MD [address] [address] Social History Tobacco Use Types Packs/Day Years [...] Description 04/14/2025 9:50 AM EDT Office Visit [facility] 154 [address] [facility] [address] [place] [address] Zuly Sood MD 300 [place] [address] 09/05/2025 1:00 PM EST Office Visit Pulmonolgy - [place] [address] [phone] Eron Camarillo MD [address] [address] documented as of this encounter Visit Diagnoses Not on filedocumented in this encounter Care Teams Production Machine Computer Operator Relationship Specialty Start Date End Date Cornelius Perez MD [address] [place] [address] PCP - General Internal Medicine 12/14/20 documented as of this encounter
--- OUTSIDE RECORDS SUMMARY | 2025-03-28 11:01 | XMS_ITS | Clinical Summary ---
Author Organization [facility] Address [address] [address] Phone Care Team Providers Care Oracle Database Administrator Name Role Phone Srinivasa Perez MD Primary Care Provider + Allergies Active Allergy Reactions Criticality Noted Date Comments Morphine Nausea And Vomiting 05/07/2024 Medications omeprazole (PriLOSEC) [address] capsule Take 1 capsule by mouth 1 (one) time each day 05/14/20 23 Active imatinib (GLEEVEC) 400 MG chemo tablet Take 400 mg by mouth 1 (one) time each day 12/14/19 25 Active Breztri Aerosphere 160-9-4.8 MCG/ACT aerosol inhale 2 puffs into the lungs twice daily Active budesonide (RHINOCORT AQ) 32 MCG/ACT nasal spray Administer 1 spray into affected nostril(s) in the morning. 11/25/19 25 Active prochlorperazine (COMPAZINE) 5 MG tablet Take 5 mg by mouth every 6 (six) hours if needed for nausea or vomiting Active LORazepam (Ativan) 0.5 MG tablet Take 1 tablet (0.5 mg total) by mouth every 6 (six) hours if needed for anxiety 5mg 01/08/20 25 Active DULoxetine (CYMBALTA) [address] capsule Take 3 capsules (60 mg total) by mouth 1 (one) time each day Do not crush or chew. 01/08/20 25 Active atorvastatin (LIPITOR) 40 MG tablet Take 2 tablets (80 mg total) by mouth at bed time 05/30/20 25 Active furosemide (LASIX) 20 MG tablet Take 20 mg by mouth 01/20/20 25 Active labetalol (NORMODYNE) 200 MG tablet Take 200 mg by mouth in the morning and 200 mg in the evening. Active amLODIPine (NORVASC) 5 MG tabletIndications:Esse ntial hypertension Take 1 tablet (5 mg total) by mouth 1 (one) time each day 90 tablet 3 02/17/20 25 2025 Active Klor-Con 20 MEQ packetIndications:Hypo kalemia Take 20 mEq by mouth 1 (one) time each day 90 packet 1 02/17/20 25 2025 Active cinacalcet (Sensipar) 30 MG tabletIndications:Stag e 3b chronic kidney disease (HCC),Secondary hyperparathyroidism of renal origin (HCC) Take 2 tablets (60 mg total) by mouth 1 (one) time each day 60 tablet 5 03/28/20 25 2025 Active cinacalcet (Sensipar) 30 MG tabletIndications:Stag e 3b chronic kidney disease (HCC),Secondary hyperparathyroidism of renal origin (HCC) Take 2 tablets (60 mg total) by mouth 1 (one) time each day with breakfast 01/08/20 25 2024 Disconti nued(Reo rder (does not appear on AVS)) Active Problems Problem Noted Date Diagnosed Date Chronic kidney disease, stage 4 (severe) 025 Bilateral adenoma of adrenal glands 01/05/2025 Osteoporosis 01/05/2025 Hypokalemia 09/30/2024 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 -Most recently patient got a CT of the chest at an outside facility in December 2022 which did not show any thoracic aortic aneurysm or dissection and only showed mild coronary artery calcifications Last Assessment & Plan: The patient CT chest from 12/2022 did not show a thoracic aortic aneurysm. This is a much more accurate measurement than echocardiograms. As such, I do not feel at this time that we need to update her echocardiogram. This is discussed with the patient, her and her friend who are all present in the room. Her questions were answered. Atherosclerosis 01/24/2022 Overview (01/05/2025): Last Assessment & Plan: Mild coronary artery calcifications incidentally noted on CT imaging of the chest, continue medical management with atorvastatin 80 mg at bedtime and inclisiran infusions-most recent LDL very well-controlled, Abdominal aortic aneurysm 11/26/2021 Adrenal mass 11/26/2021 Anxiety 11/26/2021 Asthma-chronic obstructive p ulmonary disease overlap syndrome 11/26/2021 Bipolar affective disorder, currently depressed, mild 11/26/2021 Calcium pyrophosphate deposition disease 022 Cobalamin deficiency 11/26/2021 Depressive disorder 11/26/2021 Diffuse spasm of esophagus 11/26/2021 Dyspnea 11/26/2021 H/O: pneumothorax 11/26/2021 Hemorrhoid 11/26/2021 Hidradenitis 11/26/2021 Hyperparathyroidism 11/26/2021 Neck pain 11/26/2021 Urinary incontinence 11/26/2021 Benign hypertensive renal disease 10/27/2020 Essential hypertension 10/27/2020 Hyperlipidemia 10/27/2020 Hyperparathyroidism due to renal insufficiency 0 10/27/2020 Renal stone 10/27/2020 Palpitations 08/22/2020 Overview (01/05/2025): Last Assessment & Plan: Chronic, unchanged, likely related to anxiety. Continue labetalol. Aneurysm of aorta 08/18/2020 Overview (01/05/2025): Dr. Garcia Last Assessment & Plan: Dilated aorta 4.1 cm on echocardiogram from May 2022. This can be followed yearly however unlikely to be a surgical candidate. We will continue to monitor. Atrial septal aneurysm 05/17/2010 Overview (01/05/2025): Incidental finding on echo. Seen by Dr. Ruht. Resolved Problems Problem Noted Date Diagnosed Date Resolved Date Chronic kidney disease stage 3 10/27/2020 01/07/2025 Encounters Date Type Department Care Team Description 03/28/2025 Orders Only [facility] [address] [address] Gina Reyes ARNP Stage 3b chronic kidney disease (HCC); Secondary hyperparathyroidism of renal origin (HCC) 02/16/2025 10:30 AM EDT Office Visit [facility] [address] [phone] Gina Reyes ARNP Chronic kidney disease, stage 4 (severe) (HCC) (Primary Dx); Essential hypertension; Hypokalemia 02/09/2025 Office Communication [facility] [address] [phone] Shalom Yost 01/07/2025 11:00 AM EDT Office Visit [facility] [address] [phone] Juan Pablo Cox MD Chronic kidney disease, stage 4 (severe) (HCC) (Primary Dx); Essential hypertension; Hyperparathyroidism due to renal insufficiency (HCC); Chronic kidney disease, stage 2 (mild); Stage 3b chronic kidney disease (HCC); Secondary hyperparathyroidism of renal origin (HCC) from Last 3 Months Immunizations Immunization Administration Dates Next Due Influenza (IM) Preservative Free 04/13/2020 Influenza Split High Dose Pr eservative Free IM 05/11/2022,03/19/2017,03/26/2016,05/17,04/01/2015 Influenza Whole 04/13/2020 Influenza, Trivalent, Adjuvanted 024,04/25/2023,04/25/2021,04/14 Moderna SARS-COV-2 06/08/2021, 1,11/28/2020,10/31 Pneumococcal Conjugate 13-Valent 06/17/2014 Pneumococcal Polysaccharide 05/18/2016, 5,08/25/2008 Shingrix 11/27/2017 Tdap 09/15/2008 Zoster 04/27/2014 Social History Tobacco Use Types [...] Sign Reading Time Taken Comments Blood Pressure 130/80 02/16/2025 10:58 AM EDT Pulse 66 02/16/2025 10:40 AM EDT Temperature - - Respiratory Rate - - Oxygen Saturation 100% 02/16/2025 10:40 AM EDT Inhaled Oxygen Concentration - - Weight 52.7 kg (116 lb 3.2 oz) 02/16/2025 10:40 AM EDT Height 167.6 cm (5' 6 ) 03/15/2024 3:41 PM EDT Body Mass Index 18.76 03/15/2024 3:41 PM EDT Plan of Treatment Upcoming Encounters Date Type Department Care Team (Late st Contact Info) Description 04/05/2025 3:15 PM EDT Office Visit [facility] [address] [phone] Gina Reyes ARNP [address] [phone] 07/01/2025 11:30 AM EST Office Visit [facility] [address] [phone] Juan Pablo Cox MD [address] [phone] Health Maintenance Due Date Last Done Comments Influenza Vaccine (#1) 2025 , 04/25/2023, 05/11/2022, Additional history exists Pneumococcal Vaccine: 50+ Years Completed 05/18/2016, 12/15/2014, 06/17/2014, Additional history exists Pneumococcal Vaccine: Peds (0 to 5 Years) and At-Risk Patients (6 to 49 Years) Discontinued 05/18/2016, 12/15/2014, 06/17/2014, Additional history exists Hepatitis B Vaccine Aged Out No longe r eligible based on patient's age to complete this topic Procedures Procedure Name Priority Date/Time Associated Diagnosis Comments URINE ALBUMIN / CREATININE RATIO Routine 02/18/2025 2:15 PM EDT Chronic kidney disease, stage 4 (severe) (HCC) Essential hypertension PROTEIN / CREATININE RATIO, URINE Routine 02/18/2025 2:15 PM EDT Chronic kidney disease, stage 4 (severe) (HCC) Essential hypertension BASIC METABOLIC PANEL Routine 02/18/2025 2:13 PM EDT Chronic kidney disease, stage 4 (severe) (HCC) Essential hypertension from Last 3 Months Results * (ABNORMAL) Urine Protein / creatinine ratio (02/18/2025 2:15 PM EDT) Creatinine, Ur 32.1 Not Estab. mg/dL [facility] Protein, Ur 22.1 Not Estab. mg/dL [facility] Urine Protein/Creati nine Ratio 688(H) 0 - 200 mg/g creat [facility] Urine Urine specimen obtained by clean catch procedure / Unknown 02/18/2025 2:15 PM EDT 02/18/2025 us Gina RAMÍREZ LAB URINE ORDERABLES Final Result [facility] [address] [place] [address] * (ABNORMAL) Urine Albumin / Creatinine Ratio (02/18/2025 2:15 PM EDT) Albumin, Urine 72.5 Not Estab. ug/mL [facility] Albumin/Creatin ine Ratio 226(H) 0 - 29 mg/g creat [facility] Comment: Normal: 0 - 29 Moderately increased: 30 - 300 Severely increased: >300 Urine Urine specimen obtained by clean catch procedure / Unknown 02/18/2025 2:15 PM EDT 02/18/2025 Gina CORDONP LAB URINE ORDERABLES Final Result [facility] [address] [place] [address] * (ABNORMAL) Basic metabolic panel (02/18/2025 2:13 PM EDT) Glucose 123(H) 70 - 99 mg/dL [facility] BUN 21 8 - 27 mg/dL [facility] Creatinine 1.50(H) 0.57 - 1.00 mg/dL [facility] eGFR CKD-EPI CR 2020 36(L) >59 mL/min/1.7 3 [facility] BUN/Creatinine Ratio 14 12 - 28 [facility] Sodium 138 134 - 144 mmol/L [facility] Potassium 4.3 3.5 - 5.2 mmol/L [facility] Chloride 99 96 - 106 mmol/L [facility] Bicarbonate (CO2) 21 20 - 29 mmol/L [facility] Calcium 8.5(L) 8.7 - 10.3 mg/dL [facility] Blood Venous blood / Unknown 02/18/2025 2:13 PM EDT 02/18/2025 Gina Reyes DESIREE LAB BLOOD ORDERABLES Final Result [facility] [address] [place] [address] from Last 3 Months Insurance Medicaid [place] Medicare [place] Medicare Care Teams Oracle Database Administrator Relationship Specialty Start Date End Date Srinivasa Perez MD [address] [place] [phone] PCP - General Internal Medicine 01/07/25
[2025-03-28 13:28] LABS: Anion Gap 12 (12-20); Blood Urea Nitrogen 23 mg/dL (9-16); Calcium 8.1 mg/dL (8.4-10.2); Carbon Dioxide 30 mmol/L (22-29); Chloride 100 mmol/L (96-108); Estimated Glomerular Filt Rate 29; Potassium 3.2 mmol/L (3.3-5.1); Sodium 139 mmol/L (135-145)
== END 2025-03-28 10:07 | disposition home or self-care (01) ==
LOC: HO.HKASLDS 10:06
PROVIDERS: Visit Provider Internal Medicine Hypertension Specialist
DX: N18.9 Chronic kidney disease, unspecified (principal)
CPT/HCPCS: 36415; 80048

== ENCOUNTER 2025-03-30 10:59 | Outpatient (AMB) | payer MEDICARE, MEDICAID, SELFPAY ==
[2025-03-30 11:01] VITALS: BP 134/68; PULSE 71; O2SAT 94; BMI 20.5
--- NOTE | 2025-03-30 11:01 | HO.NEPHOV ---
Vital Signs 03/30/25 11:01 Height 5 ft 5 in Weight 123 lb BMI 20.5 BP 134/68 Blood Pressure Location Lt brachial Position Sitting Pulse 71 Pulse Source Pulse Oximeter Pulse Oximetry (%) 94 Oxygen Delivery Method Room Air Intake Visit Reasons: 1mnth w labs/ Conf [employer] Installation Supervisor Required: No Accompanied by: Friend Allergies morphine Allergy (Unknown, Verified 03/30/25 11:03) Vomiting Medication List - Last Reconciled 03/30/25 by Will Singh MD amlodipine 10 mg PO DAILY atorvastatin mg PO DAILY cinacalcet 60 mg PO DAILY duloxetine 60 mg PO DAILY tklulbvrvdo-xbrhctpwg-qzuqplzh 100-62.5-25 mcg (Trelegy Ellipta) 1 ea inhalation DAILY furosemide 10 mg PO DAILY imatinib 400 mg PO DAILY labetalol 200 mg PO BID lorazepam 0.5 mg PO Q6H PRN losartan 25 mg PO DAILY omeprazole 20 mg PO DAILY potassium chloride (Klor-Con) 20 mEq PO DAILY HPI Comments Details: Gloria is a [id number] woman with a hypertension, renal stones, bipolar disorder and a history of CKD Used to see Switched to my care since his long-term Accompanied by friend She has a complicated history including calcium pyrophosphate deposition disease and history of kidney stones. History of hyperparathyroidism . 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 04/02/24 ; CT with IV contrast was cancelled. 06/30/24; Surgery cancelled and waiting for pulm evaluation; Recent fall with knee injury 10/27/24 : Accompanied by daughter today. She has had few hospitalizations with pneumonia and other issues. She developed TANVI and renal function has improved. She also had hypokalemia requiring potassium supplementation. She was still waiting for Pulmonary evaluation. 12/15/24 Last month she was in ER for hypokalemia s/p IV KCL and now on PO KCL No diarrhea . No polyuria. No nocturia Imatinib has been started as of 12/13/24 03/09/25 ;Being treated by Danaf[facility]or for malignancy ;DID not go for followup appointment ;BP has been fluctuating 03/30/25 The patient is a 79-year-old female wtih multiple medical problems comes in for chronic kidney disease management. Kidney function has improved, but sunitinib has not been started due to kidney concerns. Proteinuria is present with a level of 380 mg, slightly elevated. Hypertension - losartan 25 mg, started three weeks ago. Blood pressure is well-controlled. Edema is noted in the right leg, attributed to amlodipine. Edema is mild and not bothersome. History of cancer with follow-up treatment scheduled. Sunitinib not started FAMILY HISTORY: - Family history of brain tumor DIAGNOSTIC RESULTS: - Labs: Proteinuria with protein level of 380 mg - Labs: Potassium level at 3.2, slightly low PFSH Family History Mother Hypertension High cholesterol Crohn's disease COPD (chronic obstructive pulmonary disease) Father Brain cancer Social History Alcohol intake: never Patient Tobacco Use Status: Former Tobacco user Physical Exam Vital Signs: Last Vital Signs Pulse 71 03/30/25 11:01 BP 134/68 03/30/25 11:01 Pulse Ox 94 03/30/25 11:01 Oxygen Delivery Method Room Air 03/30/25 11:01 BMI result Body Mass Index 20.5 Comfortable Neck supple no JVD. Lungs entry equal no rales. Heart S1-S2 heard no gallop or rub. Abdomen soft nontender. Neuro alert awake oriented. No asterixis. Extremities no edema. Results Reviewed Nephrology Results: Hgb, (12.0-16.0) 11.1 g/dl L 03/09/25 WBC, (4.8-10.8) 5.8 X10*3/uL 03/09/25 Plt Count, (160-400) 231 X10*3/uL 03/09/25 Sodium, (135-145) 139 mmol/L 03/28/25 Potassium, (3.3-5.1) 3.2 mmol/L L 03/28/25 Chloride, (96-108) 100 mmol/L 03/28/25 Carbon Dioxide, (22-29) 30 mmol/L H 03/28/25 BUN, (9-16) 23 mg/dL H 03/28/25 Creatinine, (0.5-1.4) 1.73 mg/dL H 03/28/25 Calcium, (8.4-10.2) 8.1 mg/dL L Δ 03/28/25 Phosphorus, (2.7-4.5) 3.6 mg/dL 10/27/24 PTH Intact, (8.7-77.1) 147.7 pg/mL H 10/27/24 Urine Protein, (Neg-Trace) 100 (2+) mg/dL H 03/09/25 Urine Creatinine 182.72 mg/dL 03/09/25 Assessment & Plan Assessment & Plan (1) CKD (chronic kidney disease): Code(s): N18.9 - Chronic kidney disease, unspecified Category: Medical (2) Hyperparathyroidism: Code(s): E21.3 - Hyperparathyroidism, unspecified Category: Medical (3) Nephrolithiasis: Code(s): N20.0 - Calculus of kidney Category: Medical (4) COPD (chronic obstructive pulmonary disease): Code(s): J44.9 - Chronic obstructive pulmonary disease, unspecified Category: Medical (5) UTI (urinary tract infection), uncomplicated: Code(s): N39.0 - Urinary tract infection, site not specified Category: Medical Plan Elderly woman with CKD in a setting fo HTN She has CKD 3B Another episode of AK - cr at 2.1 on 12/06/24 Marginal improvement in Creatinine cystic mass above the kidneys 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 Being followed by surgical oncology. Started on Imatinib on 12/15/24 Watch creatinine closely Follows in [facility] Mild Hypokalemia Increase PO intake of potassium rich food Recheck and add supplements if needed Orders: Orders Basic Metabolic Panel 6 Weeks N18.9 - Chronic kidney disease, unspecified Parathyroid Hormone Intact 6 Weeks N18.9 - Chronic kidney disease, unspecified Coding Level of Care Code Est Pt Level 4 (90886) Diagnoses CKD (chronic kidney disease) N18.9 Hyperparathyroidism E21.3 Nephrolithiasis N20.0 COPD (chronic obstructive pulmonary disease) J44.9 UTI (urinary tract infection), uncomplicated N39.0
--- OUTSIDE RECORDS SUMMARY | 2025-03-30 12:21 | XMS_ITS | Encounter Summary ---
Author Organization [facility] Address [address] [place] [address] Care Team Providers Care Hydrogen Treater Name Role Phone Cornelius Perez MD Primary Care Provider [phone] Encounter Details Date Type Department Care Team (Late st Contact Info) Description 02/22/2025 Telephone [facility] [address] [phone] Eron Camarillo MD [address] [id number] Social History Tobacco Use Types Packs/Day Years [...] Description 04/14/2025 9:50 AM EDT Office Visit [facility] [address] [facility] 154 [place] [address] Zuly Sood MD [address] [place] [address] 04/18/2025 1:00 PM EDT Office Visit Adult Medicine - [place] [address] [place] [address] Roxana Eng NP [address] [place] [address] 09/05/2025 1:00 PM EST Office Visit Pulmonolgy - [place] 175 [facility] 200 [place] [phone] Eron Camarillo MD 175 [facility] 200 [place] [address] documented as of this encounter Visit Diagnoses Not on filedocumented in this encounter Care Teams Hydrogen Treater Relationship Specialty Start Date End Date Cornelius Perez MD [address] [place] [phone] PCP - General Internal Medicine 12/14/20 documented as of this encounter
--- OUTSIDE RECORDS SUMMARY | 2025-03-30 12:21 | XMS_ITS | Clinical Summary ---
Author Organization [facility] Address [address] [phone] Phone Care Team Providers Care Tire Mechanic Name Role Phone Srinivasa Perez MD Primary [...] Incidental finding on echo. Seen by Dr. Ruth. Resolved Problems Problem Noted Date Diagnosed Date Resolved Date Chronic kidney disease stage 3 10/27/2020 01/07/2025 Encounters Date Type Department Care Team Description 03/28/2025 Orders Only [facility] [address] [phone] Gina Reyes ARNP Stage 3b chronic kidney disease (HCC); Secondary hyperparathyroidism of renal origin (HCC) 02/16/2025 10:30 AM EDT Office Visit [facility] [address] [phone] Gina Reyes ARNP Chronic kidney disease, stage 4 (severe) (HCC) (Primary Dx); Essential hypertension; Hypokalemia 02/09/2025 Office Communication [facility] [address] [phone] Shalom Yost 01/07/2025 11:00 AM EDT Office Visit [facility] [address] [phone] Juan Pablo Cox MD Chronic kidney disease, [...] Office Visit [facility] [address] [phone] Gina Reyes ARNP [address] [phone] 07/01/2025 11:30 AM EST Office Visit [facility] [address] [phone] Juan Pablo Cox MD [address] [phone] Health Maintenance Due Date Last [...] Creatinine, Ur 32.1 Not Estab. mg/dL [facility] Protein, Ur 22.1 Not Estab. mg/dL [facility] Urine Protein/Creati nine Ratio 688(H) 0 - 200 mg/g creat [facility] Urine Urine specimen obtained by clean catch procedure / Unknown 02/18/2025 2:15 PM EDT 02/18/2025 us Gina RAMÍREZ LAB URINE ORDERABLES Final Result [facility] [address] [place] [address] * (ABNORMAL) Urine Albumin / Creatinine Ratio (02/18/2025 2:15 PM EDT) Albumin, Urine 72.5 Not Estab. ug/mL [facility] Albumin/Creatin ine Ratio 226(H) 0 - 29 mg/g creat [facility] Comment: Normal: 0 - 29 Moderately increased: 30 - 300 Severely increased: >300 Urine Urine specimen obtained by clean catch procedure / Unknown 02/18/2025 2:15 PM EDT 02/18/2025 Gina CORDONP LAB URINE ORDERABLES Final Result [facility] [address] [place] [address] * (ABNORMAL) Basic metabolic panel (02/18/2025 2:13 PM EDT) Glucose 123(H) 70 - 99 mg/dL [facility] BUN 21 8 - 27 mg/dL [facility] Creatinine 1.50(H) 0.57 - 1.00 mg/dL [facility] eGFR CKD-EPI CR 2020 36(L) >59 mL/min/1.7 3 [facility] BUN/Creatinine Ratio 14 12 - 28 [facility] Sodium 138 134 - 144 mmol/L [facility] Potassium 4.3 3.5 - 5.2 mmol/L [facility] Chloride 99 96 - 106 mmol/L [facility] Bicarbonate (CO2) 21 20 - 29 mmol/L [facility] Calcium 8.5(L) 8.7 - 10.3 mg/dL [facility] Blood Venous blood / Unknown 02/18/2025 2:13 PM EDT 02/18/2025 Gina Reyes DESIREE LAB BLOOD ORDERABLES Final Result [facility] [address] [place] [address] from Last 3 Months Insurance Medicaid [place] Medicare Medicaid [place] Medicare Care Teams Tire Mechanic Relationship Specialty Start Date End Date Srinivasa Perez MD [address] [place] [phone] PCP - General Internal Medicine 01/07/25
== END 2025-03-30 11:28 | disposition home or self-care (01) ==
LOC: HO.HKAS 11:00
PROVIDERS: PCP Internal Medicine; Visit Provider Internal Medicine Hypertension Specialist
DX: N18.9 Chronic kidney disease, unspecified (principal); E21.3 Hyperparathyroidism, unspecified; N20.0 Calculus of kidney; J44.9 Chronic obstructive pulmonary disease, unspecified; N39.0 Urinary tract infection, site not specified
CPT/HCPCS: 99214

== ENCOUNTER → 2025-03-30 10:59 | Outpatient (BNVA) | payer MEDICARE, MEDICAID, SELFPAY | PROVIDERS: PCP Internal Medicine; Visit Provider Internal Medicine Hypertension Specialist | DX: I12.9 Hypertensive chronic kidney disease with stage 1 through stage 4 chronic kidney disease, or unspecified chronic kidney disease (principal); N18.9 Chronic kidney disease, unspecified; N20.0 Calculus of kidney; E21.3 Hyperparathyroidism, unspecified; J44.9 Chronic obstructive pulmonary disease, unspecified; N39.0 Urinary tract infection, site not specified | CPT/HCPCS: 99212 ==

== ENCOUNTER 2025-05-18 09:47 | Outpatient (REF) | payer MEDICARE, MEDICAID, SELFPAY ==
[2025-05-18 14:01] LABS: Alanine Aminotransferase 24 U/L (0-31); Albumin Level 4.1 g/dL (3.5-5.0); Alkaline Phosphatase 75 U/L (39-117); Anion Gap 10 (12-20); Aspartate Amino Transferase 45 U/L (5-31); Blood Urea Nitrogen 25 mg/dL (9-16); Calcium 8.1 mg/dL (8.4-10.2); Carbon Dioxide 32 mmol/L (22-29); Chloride 100 mmol/L (96-108); Estimated Glomerular Filt Rate 26; Potassium 3.2 mmol/L (3.3-5.1); Sodium 139 mmol/L (135-145); Total Protein 5.8 g/dL (6.5-8.0)
[2025-05-18 14:30] LABS: Parathyroid Hormone Intact 268.8 pg/mL (8.7-77.1)
== END 2025-05-18 09:48 | disposition home or self-care (01) ==
LOC: HO.HKASLDS 09:47
PROVIDERS: PCP Internal Medicine; Visit Provider Internal Medicine Hypertension Specialist
DX: N20.0 Calculus of kidney (principal); I12.9 Hypertensive chronic kidney disease with stage 1 through stage 4 chronic kidney disease, or unspecified chronic kidney disease; N18.32 Chronic kidney disease, stage 3b; N39.0 Urinary tract infection, site not specified; E21.3 Hyperparathyroidism, unspecified; J44.9 Chronic obstructive pulmonary disease, unspecified; Z87.891 Personal history of nicotine dependence; Z79.899 Other long term (current) drug therapy
CPT/HCPCS: 36415; 80053; 83970; 99212

== ENCOUNTER 2025-05-18 09:47 | Outpatient (AMB) | payer MEDICARE, MEDICAID, SELFPAY ==
[2025-05-18 09:49] VITALS: BP 138/70; PULSE 64; O2SAT 99; BMI 20.3
--- NOTE | 2025-05-18 09:49 | HO.NEPHOV_ITS ---
Vital Signs 05/18/25 09:49 Height 5 ft 5 in Weight 122 lb BMI 20.3 BP 138/70 Blood Pressure Location Lt brachial Position Sitting Pulse 64 Pulse Source Pulse Oximeter Pulse Oximetry (%) 99 Oxygen Delivery Method Room Air Intake Visit Reasons: F/U, Conf Tetryl Nitrator Operator Required: No Accompanied by: Friend Allergies morphine Allergy (Unknown, Verified 05/18/25 09:51) Vomiting Medication List - Last Reconciled 05/18/25 by Will Singh MD amlodipine 10 mg PO DAILY atorvastatin mg PO DAILY cinacalcet 60 mg PO DAILY duloxetine 60 mg PO DAILY fgismcghvyg-pvsqfukwd-mjuqkpls 100-62.5-25 mcg (Trelegy Ellipta) 1 ea inhalation DAILY furosemide 10 mg PO DAILY imatinib 400 mg PO DAILY labetalol 100 mg PO BID lorazepam 0.5 mg PO Q6H PRN losartan 25 mg PO DAILY omeprazole 20 mg PO DAILY HPI Comments Details: Gloria is a [id number] woman with a hypertension, renal stones, bipolar disorder and a history of CKD Used to see Switched to my care since his senior living Accompanied by friend She has a complicated history including calcium pyrophosphate deposition disease and history of kidney stones. History of hyperparathyroidism . 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 04/02/24 ; CT with IV contrast was cancelled. 06/30/24; Surgery cancelled and waiting for pulm evaluation; Recent fall with knee injury 10/27/24 : Accompanied by daughter today. She has had few hospitalizations with pneumonia and other issues. She developed TANVI and renal function has improved. She also had hypokalemia requiring potassium supplementation. She was still waiting for Pulmonary evaluation. 12/15/24 Last month she was in ER for hypokalemia s/p IV KCL and now on PO KCL No diarrhea . No polyuria. No nocturia Imatinib has been started as of 12/13/24 03/09/25 ;Being treated by [facility] for malignancy ;DID not go for followup appointment ;BP has been fluctuating 03/30/25 The patient is a 79-year-old female wtih multiple medical problems comes in for chronic kidney disease management. Kidney function has improved, but sunitinib has not been started due to kidney concerns. Proteinuria is present with a level of 380 mg, slightly elevated. Hypertension - losartan 25 mg, started three weeks ago. Blood pressure is well- controlled. Edema is noted in the right leg, attributed to amlodipine. Edema is mild and not bothersome. History of cancer with follow-up treatment scheduled. Sunitinib not started 05/18/2025. No new complaints today. All medications reviewed. PFSH Family History Mother Hypertension High cholesterol Crohn's disease COPD (chronic obstructive pulmonary disease) Father Brain cancer Social History Alcohol intake: never Patient Tobacco Use Status: Former Tobacco user Physical Exam Vital Signs: Last Vital Signs Pulse 64 05/18/25 09:49 BP 138/70 05/18/25 09:49 Pulse Ox 99 05/18/25 09:49 Oxygen Delivery Method Room Air 05/18/25 09:49 BMI result Body Mass Index 20.3 Comfortable Neck supple no JVD. Lungs entry equal no rales. Heart S1-S2 heard no gallop or rub. Abdomen soft nontender. Neuro alert awake oriented. No asterixis. Extremities no edema. Results Reviewed Nephrology Results: Hgb, (12.0-16.0) 11.1 g/dl L 03/09/25 WBC, (4.8-10.8) 5.8 X10*3/uL 03/09/25 Plt Count, (160-400) 231 X10*3/uL 03/09/25 Sodium, (135-145) 139 mmol/L Today Potassium, (3.3-5.1) 3.2 mmol/L L Today Chloride, (96-108) 100 mmol/L Today Carbon Dioxide, (22-29) 32 mmol/L H Today BUN, (9-16) 25 mg/dL H Today Creatinine, (0.5-1.4) 1.88 mg/dL H Today Calcium, (8.4-10.2) 8.1 mg/dL L Today Phosphorus, (2.7-4.5) 3.6 mg/dL 10/27/24 PTH Intact, (8.7-77.1) 268.8 pg/mL H Today Urine Protein, (Neg-Trace) 100 (2+) mg/dL H 03/09/25 Urine Creatinine 182.72 mg/dL 03/09/25 Assessment & Plan Assessment & Plan (1) CKD (chronic kidney disease): Code(s): N18.9 - Chronic kidney disease, unspecified Category: Medical (2) Hyperparathyroidism: Code(s): E21.3 - Hyperparathyroidism, unspecified Category: Medical (3) Nephrolithiasis: Code(s): N20.0 - Calculus of kidney Category: Medical (4) COPD (chronic obstructive pulmonary disease): Code(s): J44.9 - Chronic obstructive pulmonary disease, unspecified Category: Medical (5) UTI (urinary tract infection), uncomplicated: Code(s): N39.0 - Urinary tract infection, site not specified Category: Medical Plan Elderly woman with CKD in a setting fo HTN She has CKD 3B Another episode of AK - cr at 2.1 on 12/06/24 Marginal improvement in Creatinine cystic mass above the kidneys 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 Being followed by surgical oncology. Started on Imatinib on 12/15/24 Watch creatinine closely Follows in [facility] Mild Hypokalemia Increase PO intake of potassium rich food Add KCl 10 mEq daily Orders: Orders Comprehensive Met. Panel Today N18.9 - Chronic kidney disease, unspecified Basic Metabolic Panel 6 Weeks N18.9 - Chronic kidney disease, unspecified Coding Level of Care Code Est Pt Level 4 (39271) Diagnoses CKD (chronic kidney disease) N18.9 Hyperparathyroidism E21.3 Nephrolithiasis N20.0 COPD (chronic obstructive pulmonary disease) J44.9 UTI (urinary tract infection), uncomplicated N39.0
== END 2025-05-18 10:09 | disposition home or self-care (01) ==
LOC: HO.HKAS 09:48
PROVIDERS: PCP Internal Medicine; Visit Provider Internal Medicine Hypertension Specialist
DX: N18.9 Chronic kidney disease, unspecified (principal); E21.3 Hyperparathyroidism, unspecified; N20.0 Calculus of kidney; J44.9 Chronic obstructive pulmonary disease, unspecified; N39.0 Urinary tract infection, site not specified
CPT/HCPCS: 99214

== ENCOUNTER 2025-06-08 13:22 | Outpatient (AMB) | payer MEDICARE, MEDICAID, SELFPAY ==
--- OUTSIDE RECORDS SUMMARY | 2025-06-07 13:30 | XMS_ITS | Encounter Summary ---
Author Organization [facility] Address [address] [place] [address] Care Team Providers Care Medical Certification Specialist Name Role Phone Cornelius Perez MD Primary Care Provider Reason for Referral * Consultation (Routine) - Authorized Specialty Diagnoses / Procedures Referred By Controbby t Referred To Contact Gastroenterology Diagnoses Rectal bleeding Hospital discharge follow-up Constipation, unspecified constipation type Cornelius Perez MD [address], [place] Phone: tel: fax: Referral ID Status Reason Start Date Expiration Date Visits Requested Visits Authorized [id number] Authorized Specialty Services Required 06/08/2026 1 1 Reason for Visit * Reason Comments hospital f/u Encounter Details Date Type Department Care Team (Late st Contact Info) Description 06/07/2025 1:30 PM EDT Office Visit Adult Medicine - [place] [address] [place] [phone] Cornelius Perez MD [address], [place] Rectal bleeding (Primary Dx); Stage 4 chronic kidney disease (CMS/HCC V24, CMS/HCC V28); Bipolar affective disorder, currently depressed, mild (CMS/HCC V24, CMS/[facility] V28); Anemia, unspecified type; Hospital discharge follow-up; Constipation, unspecified constipation type Social History Tobacco Use Types Packs/Day Years Used Date Smoking Tobacco: Former Cigarettes Q uit: 08/11/2014 Smokeless Tobacco: Never Tobacco Cessation:Counseling Given: Not [...] PM EST documented as of this encounter Last Filed Vital Signs Vital Sign Reading Time Taken Comments Blood Pressure 139/54 06/07/2025 1:40 PM EDT Pulse 81 06/07/2025 1:40 PM EDT Temperature 36.7 C (98.1 F) 06/07/2025 1:40 PM EDT Respiratory Rate - - Oxygen Saturation - - Inhaled Oxygen Concentration - - Weight 56.6 kg (124 lb 12.8 oz) 06/07/2025 1:40 PM EDT Height 166.4 cm (5' 5.5 ) 06/07/2025 1:40 PM EDT Body Mass Index 20.45 06/07/2025 1:40 PM EDT documented in this encounter Functional Status * Are you [...] of Assessment Author No 06/12/2024 9:46 AM Shamika Mcfarland RN documented as of this encounter Mental Status * Because of a physical, mental, or emotional condition, do you have serious difficulty concentrating, remembering, or making decisions? (5 years old or older) Answer Entry Date Author No 06/12/2024 9:46 AM Shamika Mcfarland RN documented in this encounter Progress Notes * Cornelius Perez MD - 06/07/2025 1:30 PM EDT CHIEF COMPLAINT: hospital f/u IDENTIFIER: Gloria Buckley is a 79 y.o. old female. HPI: Patient comes in with her for follow-up of recent hospitalization. She states she developeddebilitating diarrhea despite normally being constipated. She did notice some blood in her stool and went to the hospital. She underwent colonoscopy. Other than some hemorrhoids and polyps it was unremarkable. She states her stools have improved. She is going to small stools a day. No diarrhea. Despite several attempts she has not followed up with gastroenterology. She is now looking for referralagain. She has a GIST tumor that is followed in [place]. She has chronic kidney disease. She was following with Dr. Gilbert but now is following with a different provider in [place]. She also has follow-up with pulmonary and with her providers in [place]. She continues to follow with psychiatry for her behavioral health issues including bipolar disorder. ROS: GENERAL: Negative for malaise, significant weight loss and fever RESPIRATORY: No cough, wheezing or shortness of breath CARDIOVASCULAR: Negative for chest pain, leg swelling and palpitations GI: See HPI : Negative for dysuria, frequency, and incontinence PAST MEDICAL HISTORY: Patient Active Problem List Diagnosis Date Noted Stage 4 chronic kidney disease ([facility]/HCC V24, CMS/HCC V28) 06/07/2025 Colon polyps 06/06/2025 Underweight 02/25/2025 Adenoma of both adrenal glands 01/05/2025 Osteoporosis 01/05/2025 Anxiety 12/16/2024 CKD stage G3b/A1, GFR 30-44 and albumin creatinine ratio <30 mg/g (CMS/HCC V24, CMS/HCC V28) 12/01/2024 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 (CMS/HCC V24, CMS/HCC V28) 08/23/2024 GIST (gastrointestinal stromal tumor), malignant ([facility] V24, [facility] V28) 06/09/2024 PVC (premature ventricular contraction) 08/28/2023 Multinodular thyroid 06/10/2022 Ascending aorta dilatation ([facility] V24) 06/02/2022 Atherosclerosis 01/24/2022 Adrenal mass ([facility] V24) 11/26/2021 Bipolar affective disorder, currently depressed, mild ([facility] V24, [facility] V28) 11/26/2021 Calcium pyrophosphate deposition disease 11/26/2021 Cobalamin deficiency 11/26/2021 Hidradenitis 11/26/2021 Neuropathic pain, leg, right 08/20/2021 COPD (chronic obstructive pulmonary disease) ([facility] V24, [facility] V28) 05/12/2021 Benign hypertensive renal disease 10/27/2020 Hyperparathyroidism due to renal insufficiency ([facility] V24) 10/27/2020 Palpitations 08/22/2020 Fibromyalgia 10/17/2010 Pneumothorax 10/17/2010 Urinary incontinence 10/17/2010 Hypertension 06/14/2010 Atrial septal aneurysm 05/17/2010 Chronic back pain 01/18/2010 Nephrolithiasis 09/23/2008 Hyperparathyroidism ([facility] V24) 08/01/2008 Adrenal cortical tumor 07/27/2008 Depression 07/27/2008 Hypercholesteremia 07/27/2008 SOCIAL HISTORY: Social History Tobacco Use Smoking status: Former Current packs/day: 0.00 Types: Cigarettes Quit date: 08/11/2014 Years since quittin.8 Smokeless tobacco: Never Substance Use Topics Alcohol use: No FAMILY HISTORY: Family Status Relation Name Status Father Mother Daughter Alive Son Alive Brother Alive Brother half brother Brother Alive Sister Alive Sister MGM (Not Specified) Mother's sheila (Not Specified) No partnership data on file Family History[1] ACTIVE MEDICATIONS: Medications Taking[2] ALLERGIES: Morphine PHYSICAL EXAM: Blood pressure 139/54, pulse 81, temperature 36.7 ??C (98.1 ??F), temperature source Temporal, height 1.664 m (65.5 ), weight 56.6 kg (124 lb 12.8 oz). Body mass index is 20.45 kg/m??. Plan is deferred because the patient is aged 65 or older and a weight gain/reduction plan would complicate other health conditions APPEARANCE: Alert and in no acute distress NECK: Neck supple, no adenopathy, thyroid symmetric and of normal size, No bruits HEART: RRR with normal S1 and S2, no murmurs, no gallops, no JVD appreciated LUNG: clear to auscultation bilaterally ABDOMEN: Bowel sounds normoactive, no bruits and soft, non-tender, without organomegaly or palpablemasses EXTREMITIES: Extremities warm and well perfused without clubbing, cyanosis, or edema LABS: IMPRESSION: 1. Stage 4 chronic kidney disease (CMS/HCC V24, CMS/HCC V28) 2. Bipolar affective disorder, currently depressed, mild (CMS/HCC V24, CMS/HCC V28) 3. Anemia, unspecified type PLAN: Recommended rechecking lab work today. Referral placed for follow-up with gastroenterology. I was able to locate pathology results for her colon polyps. 2 out of the 4 were adenomas. She will discussfollow-up with gastroenterology. I recommended she follow-up again here in about 6 weeks. Orders Placed This Encounter Procedures Comprehensive metabolic panel CBC and differential Iron and TIBC ADDITIONAL ORDERS: None Cornelius Perez MD on 06/07/2025 at 3:44 PM EDT [1] Family History Problem Relation Name Age of Onset Heart failure Father Other (Other: brain tumor) Father COPD Mother Crohn's disease Mother Other (Other: skin cancer) Daughter No Known Problems Son No Known Problems Brother Diabetes Brother half brother Hypertension Brother Anemia Sister Thyroid disease Sister No Known Problems Sister Arthritis Maternal Grandmother Depression Mother's side [2] Outpatient Medications Marked as Taking for the 06/07/25 encounter (Office Visit) with Cornelius Perez MD Medication Sig Dispense Refill albuterol HFA (PROAIR HFA ; PROVENTIL HFA ; VENTOLIN HFA) 90 mcg/actuation inhaler amLODIPine (NORVASC) 10 mg tablet Take 1 Tablet by mouth daily. atorvastatin (LIPITOR) 40 mg tablet Take 1 tablet (40 mg total) by mouth 1 (one) time each day. Take 1 Tablet by mouth daily. 30 each 2 bisacodyL (DULCOLAX) 5 mg EC tablet Take 1 tablet (5 mg total) by mouth 1 (one) time each day if needed for constipation. Do not crush, chew, or split. Breztri Aerosphere 160-9-4.8 mcg/actuation HFA aerosol inhaler inhaler Inhale 2 puffs by mouth 2 times daily. budesonide (RHINOCORT AQ) 32 mcg/actuation nasal spray Administer 1 spray into affected nostril(s) 1 (one) time each day. busPIRone (BUSPAR) 5 mg tablet Take 1 tablet (5 mg total) by mouth 2 (two) times a day. cetirizine (ZyrTEC) 10 mg tablet Take 1 tablet (10 mg total) by mouth 1 (one) time each day. cinacalcet (SENSIPAR) 60 mg tablet Take 60 mg by mouth daily. docusate sodium (COLACE) 100 mg capsule Take 1 capsule (100 mg total) by mouth 2 (two) times a day. DULoxetine (CYMBALTA) [address] capsule Do not crush or chew.TAKE 1 CAPSULE BY MOUTH DAILY. TAKE WITH 20MG CAPSULE FOR A TOTAL DOSE OF 80MG DAILY. 90 capsule 1 furosemide (LASIX) 20 mg tablet Take 1 tablet (20 mg total) by mouth 1 (one) time each day. imatinib (GLEEVEC) 400 mg tablet Take 1 tablet (400 mg total) by mouth daily incontinence pad, liner, disp pad 240 Poise or Prevail to use 8 per day To use for life 240 each 11 ipratropium-albuteroL (DUONEB) 0.5-2.5 mg/3 mL nebulizer solution 3 mL by inhal. via small vol.nebulizer route every 6 (six) hours. labetaloL (NORMODYNE) 100 mg tablet Take 1 tablet (100 mg total) by mouth 2 (two) times a day. 180 tablet 3 lactobacillus (Culturelle) 10 billion cell capsule Take 1 capsule by mouth 1 (one) time each day. loperamide (IMODIUM) 2 mg capsule Take 1 capsule (2 mg total) by mouth 3 (three) times a day if needed. LORazepam (ATIVAN) 0.5 mg tablet Take 1 tablet (0.5 mg total) by mouth 2 (two) times a day if needed. for anxiety losartan (COZAAR) 25 mg tablet Take 1 tablet (25 mg total) by mouth daily. magnesium 200 mg tablet Take 1 Tablet by mouth as needed. methocarbamoL (ROBAXIN) 750 mg tablet Take 1 tablet (750 mg total) by mouth 3 (three) times a day if needed for muscle spasms. 30 tablet 0 multivitamin with minerals (CENTRUM) tablet Take by mouth daily. OLANZapine (ZyPREXA ZYDIS) 5 mg disintegrating tablet Take 1 tablet (5 mg total) by mouth daily. ondansetron (ZOFRAN) 4 mg tablet Take 1 tablet (4 mg total) by mouth every 8 (eight) hours if needed for nausea or vomiting. polyethylene glycol (MIRALAX) 17 gram packet Take 17 g by mouth daily. potassium chloride (Klor-Con) 20 mEq packet DISSOLVE 1 PACKET(20MEQ) IN LIQUID AND DRINK BY MOUTH ONCE DAILY 90 packet 1 prochlorperazine (COMPAZINE) 5 mg tablet Take 1 tablet (5 mg total) by mouth every 6 hours as needed. senna (SENOKOT) 8.6 mg tablet Take 1-2 tablets (8.6-17.2 mg total) by mouth daily. SUNItinib malate (SUTENT) 12.5 mg capsule Take 2 capsules (25 mg total) by mouth daily traZODone (DESYREL) 50 mg tablet Take 1 tablet (50 mg total) by mouth at bedtime. documented in this encounter Plan of Treatment Upcoming Encounters Date Type Department Care Team (Late st Contact Info) Description 06/22/2025 1:00 PM EST Office Visit Adult Medicine [facility] [address] [place] [phone] Roxana Eng NP [address] [place] [address] 07/12/2025 2:30 PM EST Office Visit Adult Medicine [facility] [address] [place] [phone] Cornelius Perez MD [address] [place] [address] 07/14/2025 12:30 PM EST Ancillary Procedure [facility] [address] [facility] [address] [place] [address] 09/05/2025 1:00 PM EST Office Visit Pulmonology - [place] [address] [facility] [address] [place] [phone] Eron Camarillo MD [address] [place] [address] Scheduled Referrals Name Type Priority Associated Diagnoses Order Schedule Ambulatory referral to Gastroenterology Outpatient Referral Routine Rectal bleeding Hospital discharge follow-up Constipation, unspecified constipation type 1 Occurrences starting 06/08/2025 until 06/07/2026 documented as of this encounter Results * Iron and TIBC (06/07/2025 2:26 PM EDT) Pathologist [facility] Iron 111 40 - 150 mcg/dL LAB CHEMISTRY METHOD 06/07/2025 4:09 PM EDT [facility] TIBC 326 250 - 450 mcg/dL LAB CHEMISTRY METHOD 06/07/2025 4:09 PM EDT [facility] Iron Saturation 34 15 - 50 % LAB CHEMISTRY METHOD 06/07/2025 4:09 PM EDT [facility] Blood Venous blood specimen / Unknown Venipuncture / Unknown 06/07/2025 2:26 PM EDT 06/07/2025 2:26 PM EDT us C Christopher Perez MD LAB BLOOD ORDERABLES Final Res ult [facility] [address] [place] [address], * (ABNORMAL) Comprehensive metabolic panel (06/07/2025 2:26 PM EDT) Sodium 137 133 - 145 mmol/L LAB CHEMISTRY METHOD 06/07/2025 4:09 PM EDT [facility] Potassium 3.4(L) 3.5 - 5.5 mmol/L LAB CHEMISTRY METHOD 06/07/2025 4:09 PM [facility] Chloride 100 96 - 110 mmol/L LAB CHEMISTRY METHOD 06/07/2025 4:09 PM [facility] CO2 34(H) 21 - 32 mmol/L LAB CHEMISTRY METHOD 06/07/2025 4:09 PM [facility] Anion Gap 3 3 - 11 LAB CHEMISTRY METHOD 06/07/2025 4:09 PM [facility] Glucose 96 70 - 100 mg/dL LAB CHEMISTRY METHOD 06/07/2025 4:09 PM [facility] BUN 18 5 - 25 mg/dL LAB CHEMISTRY METHOD 06/07/2025 4:09 PM [facility] Creatinine 1.82(H) 0.50 - 1.10 mg/dL LAB CHEMISTRY METHOD 06/07/2025 4:09 PM [facility] eGFR 28(L) >=60 mL/min/1. 73m2 LAB CHEMISTRY METHOD 06/07/2025 4:09 PM [facility] Comment:Calculation based on the Chronic Kidney Disease Epidemiology Collaboration (CKD-EPI) equation refit without adjustment for race. BUN/Creatinine Ratio 9.9 LAB CHEMISTRY METHOD 06/07/2025 4:09 PM [facility] Calcium 8.9 8.5 - 10.5 mg/dL LAB CHEMISTRY METHOD 06/07/2025 4:09 PM [facility] AST (SGOT) 23 10 - 42 unit/L LAB CHEMISTRY METHOD 06/07/2025 4:09 PM [facility] ALT (SGPT) 25 10 - 60 unit/L LAB CHEMISTRY METHOD 06/07/2025 4:09 PM [facility] Alkaline Phosphatase 67 42 - 121 unit/L LAB CHEMISTRY METHOD 06/07/2025 4:09 PM [facility] Total Protein 6.4 6.0 - 8.0 g/dL LAB CHEMISTRY METHOD 06/07/2025 4:09 PM EDT [facility] Albumin 3.9 3.2 - 5.0 g/dL LAB CHEMISTRY METHOD 06/07/2025 4:09 PM EDT [facility] Total Bilirubin 0.5 0.0 - 1.4 mg/dL LAB CHEMISTRY METHOD 06/07/2025 4:09 PM EDT [facility] Blood Venous blood specimen / Unknown Venipuncture / Unknown 06/07/2025 2:26 PM EDT 06/07/2025 2:26 PM EDT Cornelius Perez MD LAB BLOOD ORDERABLES Final Res ult [facility] [address] [place] [address], documented in this encounter Visit Diagnoses Diagnosis Rectal bleeding- Primary Hemorrhage of rectum and anus Stage 4 chronic kidney disease (CMS/HCC V24, CMS/HCC V28) Bipolar affective disorder, currently depressed, mild (CMS/HCC V24, CMS/HCC V28) Bipolar I disorder, most recent episode (or current) depressed, mild Anemia, unspecified type Hospital discharge follow-up Other follow-up examination Constipation, unspecified constipation type documented in this encounter Historical Medications * This list may reflect changes made after this encounter. docusate sodium (COLACE) 100 mg capsule Take 1 capsule (100 mg total) by mouth 2 (two) times a day. added in this encounter Care Teams Medical Certification Specialist Relationship Specialty Start Date End Date Cornelius Perez MD [address] [place] [id number] PCP - General Internal Medicine 12/14/20 documented as of this encounter
[2025-06-08 13:24] VITALS: BP 158/82; PULSE 85; O2SAT 94; BMI 20.3
--- NOTE | 2025-06-08 13:24 | HO.NEPHOV ---
Vital Signs 06/08/25 13:24 Height 5 ft 5 in Weight 122 lb BMI 20.3 BP 158/82 H Blood Pressure Location Lt brachial Position Sitting Pulse 85 Pulse Source Pulse Oximeter Pulse Oximetry (%) 94 Oxygen Delivery Method Room Air Intake Visit Reasons: Seen at [facility] Software Support Analyst Required: No Accompanied by: Spouse Allergies morphine Allergy (Unknown, Verified 06/08/25 13:27) Vomiting Medication List - Last Reconciled 06/08/25 by Will Singh MD amlodipine 10 mg PO DAILY atorvastatin mg PO DAILY cinacalcet 60 mg PO DAILY docusate sodium 100 mg PO DAILY duloxetine 60 mg PO DAILY iinvzocfzcy-cggxrhxna-dqqrxvfe 100-62.5-25 mcg (Trelegy Ellipta) 1 ea inhalation DAILY labetalol 100 mg PO BID lorazepam 0.5 mg PO Q6H PRN losartan 25 mg PO DAILY magnesium oxide 400 mg PO DAILY potassium chloride ER 10 mEq PO DAILY sennosides (senna) 8.6 - 17.2 mg PO BEDTIME PRN sunitinib malate mg PO HPI Comments Details: Gloria is a 79 year-old woman with a hypertension, renal stones, bipolar disorder and a history of CKD Used to see Switched to my care since his group home Accompanied by friend She has a complicated history including calcium pyrophosphate deposition disease and history of kidney stones. History of hyperparathyroidism . 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 04/02/24 ; CT with IV contrast was cancelled. 06/30/24; Surgery cancelled and waiting for pulm evaluation; Recent fall with knee injury 10/27/24 : Accompanied by daughter today. She has had few hospitalizations with pneumonia and other issues. She developed TANVI and renal function has improved. She also had hypokalemia requiring potassium supplementation. She was still waiting for Pulmonary evaluation. 12/15/24 Last month she was in ER for hypokalemia s/p IV KCL and now on PO KCL No diarrhea . No polyuria. No nocturia Imatinib has been started as of 12/13/24 03/09/25 ;Being treated by [facility] for malignancy ;DID not go for followup appointment ;BP has been fluctuating 03/30/25 The patient is a 79-year-old female wtih multiple medical problems comes in for chronic kidney disease management. Kidney function has improved, but sunitinib has not been started due to kidney concerns. Proteinuria is present with a level of 380 mg, slightly elevated. Hypertension - losartan 25 mg, started three weeks ago. Blood pressure is well-controlled. Edema is noted in the right leg, attributed to amlodipine. Edema is mild and not bothersome. History of cancer with follow-up treatment scheduled. Sunitinib not started 05/18/2025. No new complaints today. All medications reviewed. 06/08/25 - The patient is a 79-year-old female with CKD , recent hospitalization due to rectal bleeding. - Hemorrhoids: Severe bleeding and diarrhea led to hospitalization. - Anemia: Hemoglobin dropped to 8.8 g/dL, no transfusion given. s/p Colonoscopy- and polypectomy ( per patient) - Constipation: Alternating constipation and diarrhea, - Hypertension: Blood pressure elevated at 150 mmHg, decreased to 140 mmHg. - Hypokalemia: Potassium level low at 3.3 mEq/L, advised to resume supplementation. - Chronic kidney disease: Creatinine stable between 1.3 and 1.5 mg/dL. [facility] Surgical History (Updated 06/08/25 @ 13:26 by AYLA Arauz) H/O colonoscopy (~05/2025) Family History Mother Hypertension High cholesterol Crohn's disease COPD (chronic obstructive pulmonary disease) Father Brain cancer Social History Alcohol intake: never Patient Tobacco Use Status: Former Tobacco user Physical Exam Vital Signs: Last Vital Signs Pulse 85 06/08/25 13:24 BP 158/82 H 06/08/25 13:24 Pulse Ox 94 06/08/25 13:24 Oxygen Delivery Method Room Air 06/08/25 13:24 BMI result Body Mass Index 20.3 Results Reviewed Nephrology Results: Hgb, (12.0-16.0) 11.1 g/dl L 03/09/25 WBC, (4.8-10.8) 5.8 X10*3/uL 03/09/25 Plt Count, (160-400) 231 X10*3/uL 03/09/25 Sodium, (135-145) 139 mmol/L 05/18/25 Potassium, (3.3-5.1) 3.2 mmol/L L 05/18/25 Chloride, (96-108) 100 mmol/L 05/18/25 Carbon Dioxide, (22-29) 32 mmol/L H 05/18/25 BUN, (9-16) 25 mg/dL H 05/18/25 Creatinine, (0.5-1.4) 1.88 mg/dL H 05/18/25 Calcium, (8.4-10.2) 8.1 mg/dL L 05/18/25 Phosphorus, (2.7-4.5) 3.6 mg/dL 10/27/24 PTH Intact, (8.7-77.1) 268.8 pg/mL H 05/18/25 Urine Protein, (Neg-Trace) 100 (2+) mg/dL H 03/09/25 Urine Creatinine 182.72 mg/dL 03/09/25 Assessment & Plan Assessment & Plan (1) CKD (chronic kidney disease): Code(s): N18.9 - Chronic kidney disease, unspecified Category: Medical (2) Hyperparathyroidism: Code(s): E21.3 - Hyperparathyroidism, unspecified Category: Medical (3) Nephrolithiasis: Code(s): N20.0 - Calculus of kidney Category: Medical (4) COPD (chronic obstructive pulmonary disease): Code(s): J44.9 - Chronic obstructive pulmonary disease, unspecified Category: Medical (5) UTI (urinary tract infection), uncomplicated: Code(s): N39.0 - Urinary tract infection, site not specified Category: Medical Plan Elderly woman with CKD in a setting fo HTN She has CKD 3B Another episode of AK - cr at 2.1 on 12/06/24 Marginal improvement in Creatinine cystic mass above the kidneys 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 Being followed by surgical oncology. Started on Imatinib on 12/15/24 ; Currently NOT taking this Watch creatinine closely Follows in [facility] Mild Hypokalemia Increase PO intake of potassium rich food Recent levels 3.3 meQ on 06/04 Resume KCl 10 mEq daily Severe anemia due to blood loss Recent HgB is 8.8 gm/dL on 06/04 Follow with PCP and GI Orders: Orders Complete Blood Count no Diff 6 Weeks N18.9 - Chronic kidney disease, unspecified Comprehensive Met. Panel 6 Weeks N18.9 - Chronic kidney disease, unspecified Coding Level of Care Code Est Pt Level 4 (54012) Diagnoses CKD (chronic kidney disease) N18.9 Hyperparathyroidism E21.3 Nephrolithiasis N20.0 COPD (chronic obstructive pulmonary disease) J44.9 UTI (urinary tract infection), uncomplicated N39.0
--- OUTSIDE RECORDS SUMMARY | 2025-06-08 16:58 | XMS_ITS | Encounter Summary ---
Author Organization [facility] Address [address] [place] [address] Phone Care Team Providers Care National Investigative Producer Name Role Phone Srinivasa Perez MD Primary Care Provider + Chau Live MD Unavailable Farzana Castro RN Unavailable [email or web address] Will Singh MD Unavailable [phone] Jennifer Viera Unavailable [phone] Encounter Details Date Type Department Care Team (Late st Contact Info) Description 02/25/2025 Documentation [facility] [address], 11th [place] [address] Tiesha López RN [address] [place] [phone] [email or web address] Social History Tobacco Use Types Packs/Day Years [...] Description 06/21/2025 10:20 AM EST Office Visit [facility] [address] [place] [address] Catherine Amador MD [address] [place] [address] [email or web address] 07/15/2025 8:40 AM EST Blood Draw Laboratory Services, [facility] [address] [place] [address], 2nd [place] [address] Max Rodriguez MD [address] [place] [address] [email or web address] 07/15/2025 9:30 AM EST Office Visit [facility], [facility] [address], 6th [place] [address] Max Rodriguez MD [address] [place] [address] [email or web address] documented as of this encounter Visit Diagnoses Not on filedocumented in this encounter Additional Health Concerns Assessment Noted Time PHQ-9 Depression Total Score: 14 025 8:38 AM EDT PHQ-2 Depression Total Score: 6 01/20/20 25 1:43 PM EDT documented as of this encounter Care Teams National Investigative Producer Relationship Specialty Start Date End Date Srinivasa Perez MD [address] [place] [address] PCP - General Internal Medicine 04/20/24 [place] [address] [place] [address] [email or web address] Referring Physician 04/20/24 Farzana Castro RN [address] [place] [address] [email or web address] Primary Infusion Nurse 12/20/24 Will Singh MD [address] [address] Nephrology 03/10/25 Jennifer Viera, [facility] [address] [place] [address] [email or web address] Bridal Consultant Oncology 04/13/25 documented as of this encounter Additional Source Comments The information contained in this document represents components of the legal health record. It is not the complete legal health record.[facility]
--- OUTSIDE RECORDS SUMMARY | 2025-06-08 16:59 | XMS_ITS ---
Author Organization [facility] Address [address] [place] [address] Phone Care Team Providers Care Fisher Crab Name Role Phone Srinivasa Perez MD Primary Care Provider + Chau Live MD Unavailable Farzana Castro RN Unavailable [email or web address] Will Singh MD Unavailable [phone] Jennifer Viera Unavailable [phone] Active Problems Patient Care Coordination No te Formatting of this note migh t be different from the original. Referral made to [facility] for med management and BP checks. For any local labs, please use [facility] in [place]. 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 Current Treatment and Therapy Plans Sunitinib 37.5 mg on days 1-28 / cycle 28 days* Plan Start Date:02/21/2025 Plan Provider:Max Rodriguez MD Linked Problems Gastrointestinal stromal sole or (GIST) Treatment Medications Current Day (Day 1 , Cycle 2 - Planned for 03/21/2025) Next Day (Day 1, Cycle 3 - Planned for 04/18/2025) SUNItinib malate (SUTENT) SUNItinib isabel te (SUTENT) 12.5 mg capsuleSUNItinib malate (SUTENT) 37.5 mg capsule SUNItinib malate (SUTENT) 12.5 mg capsuleSUNItinib malate (SUTENT) 37.5 mg capsule Past Treatment and Therapy Plans TREATMENT PLAN Plan Name Start Date Discontinue Date Treatment Medications Discontinue Reason Plan Provider Cycles IMATINIB 12/13/2024 02/07/2025 imatinib (GLEEVEC) c. Not Tolerated Max Rodriguez MD 1 of 4 cycles started
--- OUTSIDE RECORDS SUMMARY | 2025-06-08 16:59 | XMS_ITS | Encounter Summary ---
Author Organization [facility] Address [address] [place] [address] Phone Care Team Providers Care First Aid Teacher Name Role Phone Srinivasa Perez MD Primary Care Provider + Chau Live MD Unavailable Jennifer Viera BED BUG EXTERMINATOR Unavailable [phone] Farzana Castro RN Unavailable [email or web address] Will Singh MD Unavailable [phone] Jennifer Viera BED BUG EXTERMINATOR Unavailable [phone] Encounter Details Date Type Department Care Team (Late st Contact Info) Description 10/13/2024 Procedure Pass [facility] CT Imaging, [place] [address] [place] [address] Social History Tobacco Use Types Packs/Day Years [...] your housing situation today? I have sharmila woods 05/07/2024 How many times have you move [...] Description 06/21/2025 10:20 AM EST Office Visit [facility] - Center for Chest Diseases [address] [place] [address] Catherine Amador MD [address] [place] [address] [email or web address] 07/15/2025 8:40 AM EST Blood Draw Laboratory Services, [facility] [place] [address] [place] [address], 2nd [place] [address] Max Rodriguez MD [address] [place] [address] [address] [place] [address] [email or web address] 07/15/2025 9:30 AM EST Office Visit [facility], [facility] [place] [address] [place] [address], 6th [place] [address] Max Rodriguez MD [address] [facility] [address] [place] [address] [email or web address] documented as of this encounter Visit Diagnoses Not on filedocumented in this encounter Additional Health Concerns Assessment Noted Time PHQ-2 Depression Total Score: 6 11/25/19 25 8:06 AM EDT documented as of this encounter Care Teams First Aid Teacher Relationship Specialty Start Date End Date Srinivasa Perez MD [address] [place] [address] PCP - General Internal Medicine 04/20/24 [place] [address] [place] [address] [email or web address] Referring Physician 04/20/24 Jennifer Viera, [address] [address] [email or web address] Management Associate Oncology 05/14/24 11/30/24 Farzana Castro RN [address] [place] [address] [email or web address] Primary Infusion Nurse 12/20/24 Will Singh MD [address] [address] Nephrology 03/10/25 Jennifer Viera, [facility] [address] [place] [address] [email or web address] Management Associate Oncology 9/3/25 documented as of this encounter Additional Source Comments The information contained in this document represents components of the legal health record. It is not the complete legal health record.[facility]
--- OUTSIDE RECORDS SUMMARY | 2025-06-08 16:59 | XMS_ITS | Encounter Summary ---
Author Organization [facility] Address [address] [place] [address] Phone Care Team Providers Care Conservation Policy Analyst Name Role Phone Srinivasa Perez MD Primary Care Provider + Chau Live MD Unavailable Jennifer Viera POWER SAW MECHANIC Unavailable [phone] Farzana Castro RN Unavailable [email or web address] Will Singh MD Unavailable + [phone] Jennifer Viera POWER SAW MECHANIC Unavailable [phone] Encounter Details Date Type Department Care Team (Late st Contact Info) Description 06/18/2024 Procedure Pass [facility] Periop [address] [place] [address] Social History Tobacco Use Types Packs/Day Years [...] Description 06/21/2025 10:20 AM EST Office Visit [facility] [address] [place] [address] Catherine Amador MD [address] [place] [address] [email or web address] 07/15/2025 8:40 AM EST Blood Draw Laboratory Services, [facility] [place] [address] [place] [address], 2nd [place] [address] Max Rodriguez MD [address] [place], [place] [address] [place] [address] [email or web address] 07/15/2025 9:30 AM EST Office Visit [facility], [facility] [place] [address] [place] [address], 6th [place] [address] Max Rodriguez MD [address] [place] [address] [address] [place] [address] [email or web address] documented as of this encounter Visit Diagnoses Not on filedocumented in this encounter Additional Health Concerns Infection Onset Date Last Indicated Resolved Time COVID-19 08/17/2024 08/17/2024 09/07/2024 1:21 AM EST documented as of this encounter Care Teams Conservation Policy Analyst Relationship Specialty Start Date End Date Srinivasa Perez MD [address] [place] [address] PCP - General Internal Medicine 04/20/24 [place] [address] [place] [address] [email or web address] Referring Physician 04/20/24 Jennifer Viera, [address] [address] [email or web address] Mail Officer Oncology 05/14/24 11/30/24 Farzana Castro RN [address] [place] [address] [email or web address] Primary Infusion Nurse 12/20/24 Will Singh MD [address] [address] Nephrology 03/10/25 Jennifer Viera, [address] [address] [email or web address] Mail Officer Oncology 04/13/25 documented as of this encounter Additional Source Comments The information contained in this document represents components of the legal health record. It is not the complete legal health record.[facility]
--- OUTSIDE RECORDS SUMMARY | 2025-06-08 16:59 | XMS_ITS | Clinical Summary ---
Author Organization [facility] Address [address] [address] Phone Care Team Providers Care Station Cook Name Role Phone Srinivasa Perez MD Primary [...] each day 90 tablet 3 02/17/20 25 026 Active Klor-Con 20 MEQ packetIndications:Hypo kalemia Take 20 mEq by mouth 1 (one) time each day 90 packet 1 02/17/20 25 026 Active cinacalcet (Sensipar) 30 MG tabletIndications:Stag e 3b chronic kidney disease (HCC),Secondary hyperparathyroidism of renal origin (HCC) Take 2 tablets (60 mg total) by mouth 1 (one) time each day 60 tablet 5 03/28/20 25 026 Active Active Problems Problem Noted Date Diagnosed [...] Encounters Date Type Department Care Team Description 05/31/2025 Orders Only [facility] [place] [address] [phone] Juan Pablo Cox MD Chronic kidney disease, stage 4 (severe) (HCC); Essential hypertension; Hyperparathyroidism due to renal insufficiency (HCC); Chronic kidney disease, stage 2 (mild); Stage 3b chronic kidney disease (HCC); Secondary hyperparathyroidism of renal origin (HCC) 04/04/2025 Telephone [facility] [place] [address] [phone] Melanie Ariza MA 03/28/2025 Orders Only [facility] [address] [phone] Gina Reyes ARNP Stage 3b chronic kidney disease (HCC); Secondary hyperparathyroidism of renal origin (HCC) from Last 3 Months Immunizations Immunization Administration Dates Next Due Influenza (IM) Preservative Free 04/13/2020 Influenza Split High Dose Pr eservative Free IM 05/11/2022,03/19/2017,03/26/2016,05/17,04/01/2015 Influenza Whole 04/13/2020 Influenza, Trivalent, Adjuvanted 024,04/25/2023,04/25/2021,04/14 Moderna SARS-COV-2 06/08/2021,,11/28/2020,10/31 Pneumococcal Conjugate 13-Valent 06/17/2014 Pneumococcal Polysaccharide 05/18/2016, [...] 03/15/2024 3:41 PM EDT Plan of Treatment Health Maintenance Due Date Last Done Comments [...] patient's age to complete this topic Insurance Medicaid [place] Medicare Medicaid [place] Medicare Care Teams Station Cook Relationship Specialty Start Date End Date Srinivasa Perez MD [address] [place] [address] PCP - General Internal Medicine 01/07/25
--- OUTSIDE RECORDS SUMMARY | 2025-06-08 16:59 | XMS_ITS | Clinical Summary ---
Author Organization [facility] Address [address] [place] [address] Phone Care Team Providers Care Office Helper Name Role Phone Srinivasa Perez MD Primary Care Provider + Chau Live MD Unavailable Farzana Castro RN Unavailable [email or web address] Will Singh MD Unavailable [phone] Jennifer Viera Unavailable [phone] Allergies Active Allergy Reactions Criticality Noted Date Comments Morphine 05/07/2024 Medications amLODIPine (NORVASC) 10 MG tablet Take 10 mg by mouth. Active atorvastatin (LIPITOR) 40 MG tablet Take 1 tablet by mouth nightly at bedtime. Active DULoxetine (CYMBALTA) 60 MG capsule Take 60 mg by mouth nightly at bedtime. Active labetaloL (TRANDATE) 100 MG tablet Take 1 tablet by mouth 2 (two) times a day. Active bisacodyl (DULCOLAX) 5 mg EC tablet Take 5 mg by mouth daily as needed for constipation. Active LORazepam (ATIVAN) 0.5 MG tablet TAKE 1 TABLET BY MOUTH THREE TIMES DAILY TAKE 1 TABLET BY MOUTH 3 TIMES DAILY NEEDED 30 tablet 3 024 Active KLOR-CON 20 mEq packet Take 20 mEq by mouth daily. Active budesonide (RHINOCORT AQUA) 32 mcg/actuation nasal spray 1 spray by Nasal route daily. 8.43 mL 3 025 Active polyethylene glycol (MIRALAX) 17 gram packet Take 17 g by mouth daily. Active ondansetron (ZOFRAN) 4 MG tablet Take 1 tablet (4 mg total) by mouth nightly at bedtime as needed for nausea. Take 60 minutes prior to imatinib. 30 tablet 3 Active Additional Information Patient not taking.Reported on 01/26/2025 oxyCODONE-acetam inophen (PERCOCET) 2.5-325 mg per tablet 14 each, 0 Refill(s), 0 Refills, 07/02/24 3:19:00 PM EST, Partial fill upon patient request if the prescription is for a schedule II opioid drug. 024 Active loperamide (IMODIUM) 2 mg capsule Active ipratropium-albu teroL (DUONEB) 0.5-3 mg (2.5 mg base)/3 mL nebulizer solution USE 3 ML VIA NEBULIZER EVERY 6 HOURS 360 mL Active cinacalcet (SENSIPAR) 60 mg tablet Take 60 mg by mouth daily. Active OLANZapine (ZYPREXA ZYDIS) 5 MG disintegrating tablet Take 5 mg by mouth nightly at bedtime. Active BREZTRI AEROSPHERE 160-9-4.8 mcg/actuation inhaler INHALE 2 PUFFS INTO THE LUNGS TWICE DAILY 10.7 g 3 Active amLODIPine (NORVASC) 5 MG tablet Take 5 mg by mouth daily. Active furosemide (LASIX) 20 MG tablet TAKE 1/2 TABLET(10 MG) BY MOUTH DAILY NEEDED FOR HIGH BLOOD PRESSURE OR FLUID RETENTION 45 tablet 1 025 Active SUNItinib malate (SUTENT) 12.5 mg capsuleIndicatio ns:Gastrointesti nal stromal tumor (GIST) Take 2 capsules (25 mg total) by mouth daily. Follow instructions given by provider. 60 capsule 2 025 Active prochlorperazine (COMPAZINE) 5 MG tablet Take 1-2 tablets (5-10 mg total) by mouth every 6 (six) hours as needed for nausea. 30 tablet 3 025 Active senna (SENOKOT) 8.6 mg tablet Take 1-2 tablets by mouth nightly at bedtime. For constipation. 60 tablet 025 Active cetirizine (ZYRTEC) 10 MG tablet Take 1 tablet (10 mg total) by mouth daily. 30 tablet 3 025 Active hydrocortisone (ANUSOL-HC) 2.5 % rectal cream Place rectally daily. 28 g 1 025 Active saliva stimulant comb. no.2 (BIOTENE) Liqd Use as directed in the mouth or throat every 4 (four) hours as needed (dry mouth). 44 mL 1 025 Active hydrocortisone acetate (ANUSOL-HC) [address] 1 suppository (25 mg total) rectally nightly at bedtime. 14 suppository 025 Active losartan (COZAAR) 25 MG tablet TAKE 1 TABLET(25 MG) BY MOUTH DAILY 30 tablet 2 Active losartan (COZAAR) 25 MG tablet Take 1 tablet (25 mg total) by mouth daily. 30 tablet 2 025 2024 Discontinued Active Problems Patient Care Coordination No te Formatting of this note migh t be different from the original. Referral made to [facility] for med management and BP checks. For any local labs, please use [facility] in [place]. 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 Encounters Date Type Department Care Team Description 06/07/2025 Ancillary Orders DF IMG OUTSIDE IMG [address] [place] [address] Max Rordiguez MD 06/07/2025 Ancillary Orders DF IMG OUTSIDE IMG [address] [place] [address] Max Rodriguez MD 06/07/2025 Ancillary Orders DF IMG OUTSIDE IMG [address] [place] [address] Max Rodriguez MD 06/03/2025 Telephone [facility], [facility] [address] [facility], [address] [place] [address] Cari Nunez, RN 06/02/2025 Telephone [facility], [address], [address] [place] [address] Cari Nunez, RN 05/31/2025 Telephone [facility], [address], [address] [place] [address] Riya Ho, ITZEL 05/28/2025 12:10 AM EDT Ancillary Procedure DF IMG OUTSIDE IMG [address] [place] [address] Max Rodriguez MD Arrived 05/28/2025 12:05 AM EDT Ancillary Procedure DF IMG OUTSIDE IMG [address] [place] [address] Max Rodriguez MD Arrived 05/28/2025 Ancillary Procedure DF IMG OUTSIDE IMG [address] [place] [address] Max Rodriguez MD Arrived 05/14/2025 Refill [facility], [address], [address] [place] [address] Roger Jaramillo, [place] Medication Refill 05/06/2025 11:00 AM EDT Telemedicine [facility], [address], [address] [place] [address] Lupe Mary, METER TESTER PRIMARY Max Rodriguez MD Gastrointestinal stromal tumor (GIST) (Primary Dx) 05/04/2025 Social Work Social Work Department, [address] [address] Jennifer Viera RECEIVER/LABORER 05/02/2025 Telephone [facility], [address], [address] [place] [address] Riya Ho, ITZEL 04/29/2025 Telephone [facility], [address], 6th [place] [address] Cari Nunez, ITZEL 04/28/2025 Documentation Adult Palliative Care, [address], 11th [place] [address] Shelia Nagy MD 04/25/2025 Orders Only [facility], [address], [address] [place] [address] Tamara Chen NP Gastrointestinal stromal tumor (GIST) 04/25/2025 Telephone [facility], [address], [address] [place] [address] Riya Ho RN 04/22/2025 1:00 PM EDT Office Visit [facility], [address], [address] [place] [address] Lupe Mary, WATSON Gastrointestinal stromal tumor (GIST) (Primary Dx) 04/22/2025 12:30 PM EDT Social Work Social Work Department, [address] [address] Max Rodriguez MD Allison, Roberta Y [facility] 04/19/2025 Telephone Psychosocial Oncology, [address] [address] Rakesh Shepard MD 04/15/2025 Telephone [facility], [address], [address] [place] [address] Cari Nunez RN 04/14/2025 Telephone Psychosocial Oncology, [address] [address] Rakesh Shepard MD 04/08/2025 11:30 AM EDT Office Visit [facility], [address], [address] [place] [address] Max Rodriguez MD Gastrointestinal stromal tumor (GIST) (Primary Dx) 04/08/2025 10:30 AM EDT Office Visit Psychosocial Oncology, [address] [address] Rakesh Shepard MD Moderate episode of recurrent major depressive disorder (Primary Dx); Anxiety disorder, unspecified type 04/08/2025 Telephone Psychosocial Oncology, [address] [address] Rakesh Shepard MD 03/20/2025 Refill [facility], [address], [address] [place] [address] Tamara Chen NP Medication Refill 03/17/2025 12:15 PM EDT Social Work Social Work Department, [address] [address] Gina Eduardo, [facility] Max Rodriguez MD 03/17/2025 Telephone [facility], [address], [address] [place] [address] Cari Nunez, ITZEL 03/10/2025 Telephone [facility], [address], [address] [place] [address] Cari Nunez, RN from Last 3 Months Family History Medical History Relation Comments Brain cancer Father Relation Status Comments Father Social History Tobacco Use Types Packs/Day Years Used Date Smoking Tobacco: Former Cigarettes Smokeless Tobacco: Never Tobacco Cessation:Counseling Given: Not Answered Child or Family Care Answer Date Record [...] Orientation Straight 04/20/2024 1: 38 PM EDT Last Filed Vital Signs Vital Sign Reading Time Taken Comments Blood Pressure 110/56 04/22/2025 12:08 PM EDT Pulse 64 04/22/2025 12:08 PM EDT Temperature 36.4 C (97.5 F) 04/22/2025 12:08 PM EDT Respiratory Rate 16 04/22/2025 12:08 PM EDT Oxygen Saturation 98% 04/22/2025 12:08 PM EDT Inhaled Oxygen Concentration - - Weight 55.1 kg (121 lb 7.6 oz) 04/22/2025 12:08 PM EDT Height 160 cm (5' 3 ) 01/19/2025 1:43 PM EDT Body Mass Index 21.52 01/19/2025 1:43 PM EDT Plan of Treatment Upcoming Encounters Date Type Department Care Team (Late st Contact Info) Description 06/21/2025 10:20 AM EST Office Visit [facility] - [facility] Diseases [address] [place] [address] Catherine Amador MD [address] [address] [email or web address] 07/15/2025 8:40 AM EST Blood Draw Laboratory Services, [address], 2nd [place] [address] Max Rodriguez MD [address] [place] [address] [address] [place] [address] [email or web address] 07/15/2025 9:30 AM EST Office Visit [facility], [address], 6th [place] [address] Max Rodriguez MD [address] [place] [address] [address] [place] [address] [email or web address] Maintenance Due Date Last Done Comments SMOKING Hx and SMOKELESS TOBACCO SCREENING 1960 HEPATITIS C SCREENING 1965 OSTEOPOROSIS SCREENING INITIAL (ONE-TIME) 2012 ZOSTER VACCINES (2 of 2) 01/22/2018 11/27/2017, 04/11 Adult Td,Tdap Booster 09/15/2018 09/15/2008 RSV VACCINE (1 - 1-dose 75+ series) 2022 COVID-19 VACCINE ( season) 2025 06/08/2022, 06/08/2021, 05/05/2021, Additional history exists REPEAT PHQ 05/22/2025 04/22/2025, 04/22/2025 CREATININE LEVEL 04/22/2026 04/22/2025, , 02/07/2025, Additional history exists DEPRESSION SCREENING 04/22/2026 04/22/2025, 04/22/20 25 POTASSIUM LEVEL 04/22/2026 04/22/2025, 07/11/2024, 02/07/2025, Additional history exists LIPID PANEL 08/23/2029 08/23/2024, 05/03/2024 PNEUMOCOCCAL VACCINES (50+ years) Completed 05/18/2016, 06/17/2014, 08/25/2008 INFLUENZA VACCINE Completed 04/29/2025, , 06/09/2024, Additional history exists HEPATITIS A VACCINES Aged Out No long er eligible based on patient's age to complete this topic HIB VACCINES Aged Out No longer eligi ble based on patient's age to complete this topic MENINGOCOCCAL VACCINES (ACWY) Aged Out No longer eligible based on patient's age to complete this topic MENINGOCOCCAL VACCINES (B) Aged Out N o longer eligible based on patient's age to complete this topic Medical Devices Not on file Procedures Procedure Name Priority Date/Time Associated Diagnosis Comments CT ABDOMEN/PELVIS OUTSIDE (NO INTERPRETATION) Routine 05/28/2025 12:[address] CHEST OUTSIDE (NO INTERPRETATION) Routine 05/28/2025 12:[address] NECK OUTSIDE (NO INTERPRETATION) Routine 05/28/2025 12:00 AM EDT OUTSIDE IMAGING 05/28/2025 OUTSIDE IMAGING 05/28/2025 OUTSIDE IMAGING 05/28/2025 OUTSIDE LAB 05/18/2025 OUTSIDE LAB 05/05/2025 FREE T4 Routine 04/22/2025 11:14 AM EDT Gastrointestinal stromal tumor (GIST) TSH Routine 04/22/2025 11:14 AM EDT Gastrointestinal stromal tumor (GIST) COMPREHENSIVE METABOLIC PANEL Routine 04/22/2025 11:14 AM EDT Gastrointestinal stromal tumor (GIST) HC BLOOD COUNT COMPLETE AUTO&AUTO DIFRNTL WBC Routine 04/22/2025 11:14 AM EDT Gastrointestinal stromal tumor (GIST) from Last 3 Months Results * CT Abdomen/Pelvis Outside (No Interpretation) (05/28/2025 12:10 AM EDT) Other Narrative PERCIPIO_DFCI - 06/07/2025 11:35 AM EDT This study is for PACS storage only and not for interpretation. us Max Rodriguez MD IMG OUTSIDE IMAGING W/OU T INTERPRETATION Final Result Performing Organization Address City/[facility]/ZIP Co de Phone Number PERCSARTHAK_DFCI * CT Chest Outside (No Interpretation) (05/28/2025 12:05 AM EDT) Other Narrative PERCIPIO_BWH - 06/07/2025 11:35 AM EDT This study is for PACS storage only and not for interpretation. us Max Rodriguez MD IMG OUTSIDE IMAGING W/OU T INTERPRETATION Final Result PERCSARTHAK_BWH * Outside Imaging Report Only (05/28/2025) us Scanning Interface Provider IMG XR CHEST Dayna l Result * Outside Imaging Report Only (05/28/2025) us Scanning Interface Provider IMG XR CHEST Dayna l Result * Outside Imaging Report Only (05/28/2025) us Scanning Interface Provider IMG XR CHEST Dayna l Result * CT Neck Outside (No Interpretation) (05/28/2025 12:00 AM EDT) Other Narrative PERCIPIO_DFCI - 06/07/2025 11:35 AM EDT This study is for PACS storage only and not for interpretation. us Max Rodriguez MD IMG OUTSIDE IMAGING W/OU T INTERPRETATION Final Result PERCIPIO_DFCI * Outside Lab (05/18/2025) Only the most recent of2 resultswithin the time period is included. us Scanning Interface Provider LAB BLOOD ORDERABLES Final Result * (ABNORMAL) Comprehensive metabolic panel (04/22/2025 11:14 AM EDT) SODIUM 138 136 - 145 mmol/L [facility] LIC# [id number] POTASSIUM 3.8 3.4 - 5.1 mmol/L [facility] LIC# [id number] CHLORIDE 100 98 - 107 mmol/L [facility] LIC# [id number] CO2 26 22 - 31 mmol/L [facility] LIC# [id number] BUN 28(H) 6 - 23 mg/dL [facility] LIC# [id number] CREATININE 1.95(H) 0.50 - 1.20 mg/dL [facility] LIC# [id number] GLUCOSE 115(H) 70 - 100 mg/dL [facility] LIC# [id number] ALBUMIN 4.1 3.5 - 5.2 g/dL [facility] LIC# [id number] TOTAL PROTEIN 6.2(L) 6.4 - 8.3 g/dL [facility] LIC# [id number] CALCIUM 9.0 8.8 - 10.7 mg/dL [facility] LIC# [id number] ALKALINE PHOSPHATASE 66 35 - 104 U/L [facility] LIC# [id number] TOTAL BILIRUBIN 0.3 0.2 - 1.2 mg/dL [facility] LIC# [id number] AST 21 <33 U/L [facility] LIC# [id number] ALT 14 <34 U/L [facility] LIC# [id number] GLOBULIN 2.1(L) 2.3 - 4.2 g/dL [facility] LIC# [id number] EGFR 26(L) >59 mL/min/1.7 3m2 [facility] LIC# [id number] Comment:Estimated glomerular filtration rate calculated using the CKD-EPI refit equation. ANION GAP 12 7 - 17 mmol/L [facility] LIC# [id number] Blood 04/22/2025 11:1 4 AM EDT 04/22/2025 11:24 AM EDT us Max Rodriguez MD LAB BLOOD ORDERABLES Fin al Result [facility] LIC# [id number] [address] [place] [address] * (ABNORMAL) CBC and differential (04/22/2025 11:14 AM EDT) WBC 5.53 4.00 - 10.00 K/uL [facility] LIC# [id number] RBC 3.57(L) 3.90 - 6.00 M/uL [facility] LIC# [id number] HGB 11.2(L) 11.5 - 16.4 g/dL [facility] LIC# [id number] HCT 34.0(L) 36.0 - 48.0 % [facility] LIC# [id number] PLT 175 150 - 450 K/uL [facility] LIC# [id number] MCV 95.2 80.0 - 100.0 fL [facility] LIC# [id number] MCH 31.4 27.0 - 32.0 pg [facility] LIC# [id number] MCHC 32.9 32.0 - 36.0 g/dL [facility] LIC# [id number] RDW 11.9 11.5 - 14.5 % [facility] LIC# [id number] MPV 9.3 8.4 - 12.0 fL [facility] LIC# [id number] NRBC 0.00 0 /100 WBCs [facility] LIC# [id number] ABSOLUTE NRBC 0.00 0 K/uL [facility] LIC# [id number] DIFF METHOD Auto [facility] LIC# [id number] NEUTS 53.5 48.0 - 76.0 % [facility] LIC# [id number] LYMPHS 35.4 18.0 - 41.0 % [facility] LIC# [id number] MONOS 7.4 4.0 - 11.0 % [facility] LIC# [id number] EOS 3.1 0.0 - 5.0 % [facility] LIC# [id number] BASOS 0.4 0.0 - 1.5 % [facility] LIC# [id number] % IMMATURE GRANS 0.2 0.0 - 1.0 % [facility] LIC# [id number] ABSOLUTE NEUTS 2.96 1.92 - 7.60 K/uL [facility] LIC# [id number] ABSOLUTE LYMPHS 1.96 0.72 - 4.10 K/uL [facility] LIC# [id number] ABSOLUTE MONOS 0.41 0.16 - 1.10 K/uL [facility] LIC# [id number] ABSOLUTE EOS 0.17 0.00 - 0.50 K/uL [facility] LIC# [id number] ABSOLUTE BASOS 0.02 0.00 - 0.15 K/uL [facility] LIC# [id number] ABS IMMATURE GRANS 0.01 0.00 - 0.10 K/uL [facility] LIC# [id number] Blood 04/22/2025 11:1 4 AM EDT 04/22/2025 11:24 AM EDT us Max Rodriguez MD LAB BLOOD ORDERABLES Fin al Result [facility] LIC# [id number] [address] [place] [address] * TSH (04/22/2025 11:14 AM EDT) TSH 2.25 0.27 - 4.20 uIU/mL [facility] LIC# [id number] Blood 04/22/2025 11:1 4 AM EDT 04/22/2025 11:24 AM EDT us Max Rodriguez MD LAB BLOOD ORDERABLES Fin al Result [facility] LIC# [id number] [address] [place] [address] * Free T4 (04/22/2025 11:14 AM EDT) FREE T4 1.0 0.9 - 1.7 ng/dL [facility] LIC# [id number] Blood 04/22/2025 11:1 4 AM EDT 04/22/2025 11:24 AM EDT us Max Rodriguez MD LAB BLOOD ORDERABLES Fin al Result Performing Organization Address City/[facility] Co de Phone Number [facility] LIC# [id number] [address] [place] [address] from Last 3 Months Insurance [address] [place] [address] [facility] MEDICARE PART A & B [address] [place] [address] [place] PART A & [place] [address] [place] [address] [place] [id number] MEDICARE PART A [place] [id number] [address] [place] [address] [facility] & [address] [place] [address] [place] MEDICARE PART A & B . [address] [place] [address] [facility] MEDICARE PART A & B Care Teams Office Helper Relationship Specialty Start Date End Date Srinivasa Perez MD [address] [place] [address] PCP - General Internal Medicine 04/20/24 Chau Live MD [address] [place] [address] [email or web address] Referring Physician 04/20/24 Farzana Castro RN [address] [place] [address] [email or web address] Primary Infusion Nurse 12/20/24 Will Singh MD [address] [place] [address] Nephrology 03/10/25 Jennifer Viera, [facility] [address] [place] [address] [email or web address] Choir Accompanist Oncology 04/13/25 Additional Source Comments The information contained in this document represents components of the legal health record. It is not the complete legal health record.[facility]
--- OUTSIDE RECORDS SUMMARY | 2025-06-08 16:59 | XMS_ITS | Encounter Summary ---
Author Organization [facility] Address [address] [place] [address] Phone Care Team Providers Care Special Effects Artist Name Role Phone Srinivasa Perez MD Primary Care Provider + Chau Live MD Unavailable Farzana Castro RN Unavailable [email or web address] Will Singh MD Unavailable [phone] Jennifer Viera Unavailable [phone] Encounter Details Date Type Department Care Team (Late st Contact Info) Description 01/17/2025 Telephone [facility], [facility] [address] [place] [address], 6th [place] [address] Cari Nunez RN [address] [place] [address] [email or web address] Social History Tobacco Use Types Packs/Day Years [...] AM EST Office Visit [facility] [address] [place] [address] Catherine Amador MD [address] [place] [address] [email or web address] 07/15/2025 8:40 AM EST Blood Draw Laboratory Services, [facility] [address] [place] [address] 2nd [place] [address] Max Rodriguez MD [address] [facility] [address] [place] [address] [email or web address] 07/15/2025 9:30 AM EST Office Visit [facility], [facility] [address] [facility], 6th [place] [address] Max Rodriguez MD [address] [facility] [address] [place] [address] [email or web address] documented as of this encounter Visit Diagnoses Not on filedocumented in this encounter Additional Health Concerns Assessment Noted Time PHQ-9 Depression Total Score: 14 025 8:38 AM EDT PHQ-2 Depression Total Score: 4 12/08/19 25 8:38 AM EDT documented as of this encounter Care Teams Special Effects Artist Relationship Specialty Start Date End Date Srinivasa Perez MD [address] [place] [address] PCP - General Internal Medicine 04/20/24 Chau Live MD [address] [place] [address] [email or web address] Referring Physician 04/20/24 Farzana Castro RN [address] [place], [place] [email or web address] Primary Infusion Nurse 12/20/24 Will Singh MD [address] [address] Nephrology 03/10/25 Jennifer Viera, [address] [address] [email or web address] Tool Room Attendant Oncology 04/13/25 documented as of this encounter Additional Source Comments The information contained in this document represents components of the legal health record. It is not the complete legal health record.[facility]
--- OUTSIDE RECORDS SUMMARY | 2025-06-08 16:59 | XMS_ITS | Encounter Summary ---
Author Organization [facility] Address [address] [facility] [address] [place] [address] Phone Care Team Providers Care Property Field Inspector Name Role Phone Srinivasa Perez MD Primary Care Provider + Chau Live MD Unavailable Farzana Castro RN Unavailable [email or web address] Will Singh MD Unavailable [phone] Jennifer Viera Unavailable [phone] Encounter Details Date Type Department Care Team (Late st Contact Info) Description 06/07/2025 Ancillary Orders DF IMG OUTSIDE IMG [address] [place] [address] Max Rodriguez MD [address] [place], [place] [address] [place] [address] [email or web address] Social History Tobacco Use Types Packs/Day Years [...] Description 06/21/2025 10:20 AM EST Office Visit [facility] - [facility] [address] [place] [address] Catherine Amador MD [address] [place] [address] [email or web address] 07/15/2025 8:40 AM EST Blood Draw Laboratory Services, [facility] [place] [address] [place] [address], 2nd [place], [place] [address]Max Gill MD [address] [facility] [address] [place] [address] [email or web address] 07/15/2025 9:30 AM EST Office Visit [facility], [facility] [address] [facility], 6th [place] [address] Max Rodriguez MD [address] [facility] [address] [place] [address] [email or web address] documented as of this encounter Results * CT Neck Outside (No Interpretation) (05/28/2025 12:00 AM EDT) Other Narrative PERCIPIO_DFCI - 06/07/2025 11:35 AM EDT This study is for PACS storage only and not for interpretation. us Max Rodriguez MD IMG OUTSIDE IMAGING W/OU T INTERPRETATION Final Result PERCIPIO_DFCI documented in this encounter Visit Diagnoses Not on filedocumented in this encounter Additional Health Concerns Assessment Noted Time PHQ-9 Depression Total Score: 14 025 12:23 PM EDT PHQ-2 Depression Total Score: 3 04/22/20 25 12:23 PM EDT documented as of this encounter Care Teams Property Field Inspector Relationship Specialty Start Date End Date Srinivasa Perez MD [address] [place] [address] PCP - General Internal Medicine 04/20/24 Chau Live MD [address] [place] [address] [email or web address] Referring Physician 04/20/24 Farzana Castro RN [address] [place] [address] [email or web address] Primary Infusion Nurse 12/20/24 Will Singh MD [address] [place] [address] Nephrology 03/10/25 Jennifer Viera, [facility] [address] [place] [address] [email or web address] Electric Tool Repairer Oncology 04/13/25 documented as of this encounter Additional Source Comments The information contained in this document represents components of the legal health record. It is not the complete legal health record.[facility]
--- OUTSIDE RECORDS SUMMARY | 2025-06-08 16:59 | XMS_ITS | Encounter Summary ---
Author Organization [facility] Address [address] [place] [address] Phone Care Team Providers Care Category Manager Name Role Phone Srinivasa Perez MD Primary Care Provider + Chau Live MD Unavailable Farzana Castro RN Unavailable [email or web address] Will Singh MD Unavailable [phone] Jennifer Viera Unavailable [phone] Encounter Details Date Type Department Care Team (Late st Contact Info) Description 06/03/2025 Telephone [facility], [facility] [place] [address] [place] [address], 6th [place] [address] Cari Nunez RN [address] [place] [address] [email or web address] Social History Tobacco Use Types [...] as of this encounter Progress Notes * Cari Nunez RN - 06/03/2025 11:53 AM EDT I called to check in on Gloria. She is being discharged today. She states she will be unable to comein on Friday Scheduling will book her for Friday with Dr. Rodriguez. Hopefully imaging and reports form [facility] will be all set for that visit. @Max Rodriguez MD she will restart her Sutent when she gets home. Cari Nunez DNP, RN, AOCN Oncology Nurse Navigator [facility] documented in this encounter Plan of Treatment Upcoming Encounters Date Type Department Care Team (Late st Contact Info) Description 06/21/2025 10:20 AM EST Office Visit [facility] - [facility] for Chest Diseases [address] [place] [address] Catherine Amador MD [address] [facility], [address] [address] [email or web address] 07/15/2025 8:40 AM EST Blood Draw Laboratory Services, [address], 2nd [place] [address] Max Rodriguez MD [address] [place] [address] [address] [place] [address] [email or web address] 07/15/2025 9:30 AM EST Office Visit [facility], [facility] [address] [facility], 6th [place] [address] Max Rodriguez MD [address] [place] [address] [address] [place] [address] [email or web address] documented as of this encounter Visit Diagnoses Not on filedocumented in this encounter Additional Health Concerns Assessment Noted Time PHQ-9 Depression Total Score: 14 025 12:23 PM EDT PHQ-2 Depression Total Score: 3 04/22/20 25 12:23 PM EDT documented as of this encounter Care Teams Category Manager Relationship Specialty Start Date End Date Srinivasa Perez MD [address] [place] [address] PCP - General Internal Medicine 04/20/24 Chau Live MD [address] [place] [address] [email or web address] Referring Physician 04/20/24 Farzana Castro, RN [address] [place] [address] [email or web address] Primary Infusion Nurse 12/20/24 Will Singh MD [address] [place] [address] Nephrology 03/10/25 Jennifer Viera, [facility] [address] [place] [address] [email or web address] Linotype Machinist Apprentice Oncology 04/13/25 documented as of this encounter Additional Source Comments The information contained in this document represents components of the legal health record. It is not the complete legal health record.[facility]
--- OUTSIDE RECORDS SUMMARY | 2025-06-08 16:59 | XMS_ITS | Encounter Summary ---
Author Organization [facility] Address [address] [place] [address] Phone Care Team Providers Care Want Ad Supervisor Name Role Phone Srinivasa Perez MD Primary Care Provider + Chau Live MD Unavailable Farzana Castro RN Unavailable [email or web address] Will Singh MD Unavailable [phone] Jennifer Viera Unavailable [phone] Encounter Details Date Type Department Care Team (Late st Contact Info) Description 12/10/2024 Documentation Psychosocial Oncology, [facility] [place] [address] [place] [address] Raegan Pina, PhD [address] [place] [address] [email or web address] Social History Tobacco Use Types Packs/Day Years [...] Description 06/21/2025 10:20 AM EST Office Visit [facility] - [facility] for Chest Diseases [address] [place] [address] Catherine Amador MD [address] [place] [address] [email or web address] 07/15/2025 8:40 AM EST Blood Draw Laboratory Services, [facility] [place] [address] [place] [address], 2nd [place] [address] Max Rodriguez MD [address] [facility] [address] [place] [address] [email or web address] 07/15/2025 9:30 AM EST Office Visit [facility], [facility] [place] [address] [facility], 6th [place] [address] Max Rodriguez MD [address] [facility] [address] [place] [address] [email or web address] documented as of this encounter Visit Diagnoses Not on filedocumented in this encounter Additional Health Concerns Assessment Noted Time PHQ-9 Depression Total Score: 14 025 8:38 AM EDT PHQ-2 Depression Total Score: 4 12/08/19 25 8:38 AM EDT documented as of this encounter Care Teams Want Ad Supervisor Relationship Specialty Start Date End Date Srinivasa Perez MD [address] [place] [address] PCP - General Internal Medicine 04/20/24 Chau Live MD [address] [place] [address] [email or web address] Referring Physician 04/20/24 Fazrana Castro RN [address] [place] [address] [email or web address] Primary Infusion Nurse 12/20/24 Will Singh MD [address] [address] Nephrology 03/10/25 Jennifer Viera, [facility] [address] [place] [address] [email or web address] Soldering Machine Tender Oncology 04/13/25 documented as of this encounter Additional Source Comments The information contained in this document represents components of the legal health record. It is not the complete legal health record.[facility]
--- OUTSIDE RECORDS SUMMARY | 2025-06-08 16:59 | XMS_ITS | Data Portability ---
Author Organization [place] [facility] Address [address] [place] [phone] Assessment Encounter Date Assessment Date Assessment LastModified by Organization Details LastModified Time 11/30/2020 11/30/2020 Overview/History :This is a 75-year-old female that contacted [facility] for evaluation after having her COVID vaccine 2 days ago. She has been having pain and swelling at the injection site ear and is concerned and wanted an evaluation. She does tell me that she has significant depression and is very anxious. She has been watching a light of new programs regarding COVID and she is especially concerned to be having this reaction with the COVID-19 vaccine. Exam: On exam patient is awake and alert, she does appear to be quite anxious and is speaking throughout the entire exam. She has no respiratory difficulty. DDx considered, but not limited to:She does have some mild erythema and some warmth on her left deltoid at her injection site, there is a mild amount of swelling but nothing too significant. She does have pain with palpation of the muscle, she is able to move her arm. Work up/Results: Plan/Discussion: I reassured the patient that it is not that abnormal to have some pain and swelling at the injection site after having a vaccine. I did reassure her that I see no evidence of any sort of infection or any other process occurring here. I have advised that she continue to take Tylenol 1000 mg every 8 hours to control the pain. I have also encouraged her to continue to use ice packs and perhaps to use a bit more frequently to control the swelling and discomfort. I also reassured her that the vaccine that she received is safe and that she will still have him on a protection from the vaccine despite having this local reaction. She verbalized understanding of discharge instructions. In order to obtain further information and compare any laboratory results/values, I have accessed patient records on the [employer]. This information was pertinent in my medical decision making today. Proper Personal Protective Equipment (PPE), including gloves, eye protection and masks were donned and doffed appropriately and all equipment cleaned using approved technique with germicidal disposable wipes prior to and after care of this patient according to [facility]'s infection prevention protocols. [email or web address] Not available 11/30/2020 14:47:37 Plan of Treatment Reminders Order Date Submit Date Provider Last Modified By Organization Details Last Modified Time Details Appointments None record ed. Lab None record ed. Referral None record ed. Procedures None record ed. Surgeries None record ed. Imaging None record ed. Medication Orders None record ed. Patient TargetsNo targets recorded. Patient InstructionsNo instructions recorded. Reason for Referral None Reported. Medical Equipment None Reported. Allergies No known drug allergies Medications Name Sig Start Date Stop Date Status Note LastModified by Organization Details LastModified Time atorvastati n 40 mg tablet TAKE 1 TABLET BY MOUTH EVERY NIGHT AT BEDTIME active Not Available Not Available No t Available atorvastati n 80 mg tablet TK 08/12 T PO D HS 11/30 completed Not Available Not Available Not Available venlafaxine ER 37.5 mg capsule,ext ended release 24 hr TAKE 1 CAPSULE BY MOUTH EVERY DAY WITH FOOD. SWALLOW WHOLE 11/30 completed Not Available Not Available Not Available cyanocobala min (vit B-12) 2,[address] 1 TABLET UNDER THE TONGUE DAILY. active Not Available Not Available No t Available venlafaxine 25 mg tablet TAKE 1 TABLET BY MOUTH TWICE DAILY 11/30 completed Not Available Not Available Not Available amlodipine 5 mg tablet TAKE 2 TABLETS BY MOUTH EVERY DAY active Not Available Not Available No t Available meloxicam 7.5 mg tablet TAKE 1 TABLET BY MOUTH TWICE A DAY 11/30 completed Not Available Not Available Not Available prednisolon e acetate 1 % eye drops,suspe nsion INSTIL 1 DROP FOUR TIMES DAILY INTO THE LEFT EYE FOR 4 DAYS AFTER LASER PROCEDURE THEN DISCONTIN UE 11/30 completed Not Available Not Available Not Available lorazepam 0.5 mg tablet TAKE 1 TABLET BY MOUTH THREE TIMES DAILY TAKE 1 TABLET BY MOUTH 3 TIMES DAILY NEEDED active Not Available Not Available No t Available venlafaxine 50 mg tablet TAKE 1 TABLET BY MOUTH TWICE DAILY 11/30 completed Not Available Not Available Not Available gabapentin 300 mg capsule TK 1 C PO BID FOR 90 DAYS 11/30 completed Not Available Not Available Not Available folic acid 1 mg tablet TAKE 1 TABLET BY MOUTH DAILY active Not Available Not Available No t Available gabapentin 100 mg capsule TAKE 1 CAPSULE BY MOUTH DAILY AT BEDTIME 11/30 completed Not Available Not Available Not Available labetalol 100 mg tablet TAKE 1 TABLET BY MOUTH TWICE A DAY active Not Available Not Available No t Available albuterol sulfate HFA 90 mcg/actuati on aerosol inhaler INHALE 2 PUFFS BY MOUTH EVERY 4 TO 6 HOURS NEEDED active Not Available Not Available No t Available doxycycline hyclate 20 mg tablet TK 1 T PO BID ONCE THE CYST IS RESOLVED TO PREVENT REOCCURRE NCE 11/30 completed Not Available Not Available Not Available sertraline 50 mg tablet 11/30 completed Not Available Not Available Not Available bupropion HCl SR 200 mg tablet,12 hr sustained-r elease TAKE 1 TABLET BY MOUTH TWICE DAILY active Not Available Not Available No t Available cyclobenzap rine 5 mg tablet TAKE 1 TABLET BY MOUTH THREE TIMES DAILY NEEDED FOR SPASM 11/30 completed Not Available Not Available Not Available cinacalcet 60 mg tablet TAKE 1 TABLET BY MOUTH EVERY DAY DIRECTED active Not Available Not Available No t Available Breo Ellipta 100 mcg-25 mcg/dose powder for inhalation INL 1 PUFF PO AT THE SAME TIME QD active Not Available Not Available No t Available Incruse Ellipta 62.5 mcg/actuati on powder for inhalation INL 1 PUFF PO AT THE SAME TIME QD active Not Available Not Available No t Available Vitals Date Recorded Oxygen saturation Oxygen saturation in Arterial blood by Pulse oximetry Body temperature Heart rate Respiratory rate Systolic And Diastolic Provider Name and Address Organization Details Last Updated DateTime 97 % 97 % 98.6 [degF] 72 /min 20 /min 106/60 mm[Hg] Not Available [facility] 13:05:47 Social History Question Answer Notes LastModified by Organizat ion Details LastModified Time Do You Have An Advance Directive? No [email or web address] Information not available 11/30/2020 What Is Your Code Status? Full Code [email or web address] Information not available 11/30/2020 Within The Past 12 Months, Has It Happened That The Food You Bought Just Didn't Last And You Didn't Have Money To Get More. No [email or web address] Information not available 11/30/2020 Within The Past 12 Months, Have You Worried That Your Food Would Run Out Before You Got Money To Buy More. No [email or web address] Information not available 11/30/2020 Fall Risk: Do You Feel Unsteady When Standing Or Walking? No [email or web address] Information not available 11/30/2020 We Know That How And When People Interact With Friends And Family Can Be Very Different From Person To Person. How Often Do You Have The Opportunity To See Or Talk To People That You Care About And Feel Close To? (Ex: Talking To Friends On The Phone Or Visiting Friends Or Family Or Going To Confucianism Or Club Meetings) 3 Or 4 Times Per Week [email or web address] Information not available 11/30/2020 Excessive Alcohol Or Drug Use No [email or web address] Information not available 11/30/2020 We Know From Many Of Our Patients That Covering All Of Their Costs Can Be Difficult At Times. This Can Cause Stress And Impact Health. In The Past Year, Have You Been Unable To Get Any Of The Following When It Was Really Needed? No [email or web address] Information not available 11/30/2020 What Is Your Housing Situation Today? I Have Housing [email or web address] Information not available 11/30/2020 Would You Like Help Connecting To Resources? None [email or web address] Information not available 11/30/2020 Sex: Unknown Functional Status None recorded. Mental Status None recorded. Family History Relationship Description Onset Age of this Age Resolved Age Notes LastModified by Organization Details LastModified Time Mother Hypertensive disorder [email or web address] Not available 13:07:57 Father Malignant neoplastic disease [email or web address] Not available 13:08:05 Medical History Condition Response Diabetes N Coronary Artery Disease N Cancer N Stroke N Asthma N COPD Y Depression Y High Cholesterol Y Pulmonary Embolism N Hypertension Y Kidney Disease N Gynecological HistoryNo gynecological history recorded. Obstetrics History GPAL:G 0 P 0 0 0 0 Past Encounters Encounter ID Performer Location Encounter Start Date Encounter Closed Date Diagnosis/Indication Diagnosis SNOMED-CT Code Diagnosis ICD10 Code Diagnosis IMO Codes Diagnosis Note [id number] LIVE BEARD NP [facility] [place] [facility] [address] [facility] [place] [address] 11/30/2020 12:30:31 12/01/2020 15:37:21 Injection site irritation 71686289 T80.89XA Anxiety 71085859 F41.9 Health Concerns Section Related Observation LastModified by Organization Detai ls LastModified Time None Recorded Concern Status LastModified by Organization Details LastModified Time None Recorded Advance Directives Directive N: Payers Insurance Date Sequence Insurance Name Policy Number Policy [employer] Covered Member ID Sanford Member ID Guarantor Name 10/16/2020 1 *SELF PAY* Gloria Mahenrdakowicz [id number] Gloria Mahendrakowicz 11/30/2020 1 [place] [employer] Gloria Goszkowicz [id number] Gloria Goszkowicz 11/30/2020 2 [place] [facility] Gloria Shahidzkowicz [id number] Gloria Shahidzkowicz 11/30/2020 PENDING Gloria Goszkowicz [id number] Gloria Goszkowicz 12/01/2020 1 [place] [employer] Gloria J Goszkowicz [id number] Gloria Goszkowicz 11/30/2020 PENDING Gloria Goszkowicz [id number] Gloria Goszkowicz Notes Date Note Type Note Provider Name and Address Organization Details Recorded Time 11/30/2020 text/html This is a 75-year-old female but as a new patient who [email or web address]. She has a medical history significant for COPD, hyperlipidemia, hypertension depression and anxiety. She contacted [facility] because she was unable to get in with her PCP office. She reports that she had her COVID-19 vaccination on Friday in her left deltoid and that she has been having pain at the injection site and some swelling ever since. She does admit that the swelling is a bit better and it is not as red as it was before but she is still having pain. She also has been feeling tired. She has been watching a lot of news reports about COVID-19 and is very concerned there might be something wrong with her after getting this vaccination. She does report that she has had similar reactions to other vaccines in the past, most recently when she had her Shingrix vaccine several years ago she also had local injection site reaction. This resolved spontaneously in a few days. LIVE BEARD NP [address], [place], [address], [place] - [facility] 11/30/2020 14:47:44 OBGyn Episode No OBEpisode recorded.
--- OUTSIDE RECORDS SUMMARY | 2025-06-08 16:59 | XMS_ITS | Clinical Summary ---
Author Organization [address] [facility] Address [address] [place] [address] Phone Care Team Providers Care Instructor Warper Name Role Phone Cornelius Perez MD Primary Care Provider [phone] Allergies Active Allergy Reactions Criticality Noted Date Comments Morphine Nausea And Vomiting 05/07/2024 Medications albuterol HFA (PROAIR HFA ; PROVENTIL HFA ; VENTOLIN HFA) 90 mcg/actuation inhaler 3 Active amLODIPine (NORVASC) 10 mg tablet Take 1 Tablet by mouth daily. 4 Active cinacalcet (SENSIPAR) 60 mg tablet Take 60 mg by mouth daily. Active magnesium 200 mg tablet Take 1 Tablet by mouth as needed. Active multivitamin with minerals (CENTRUM) tablet Take by mouth daily. Active incontinence pad, liner, disp padIndications:Fib romyalgia,Urinary incontinence, unspecified type 240 Poise or Prevail to use 8 per day To use for life 240 each 11 4 Active atorvastatin (LIPITOR) 40 mg tabletIndications: Hypercholesteremia Take 1 tablet (40 mg total) by mouth 1 (one) time each day. Take 1 Tablet by mouth daily. 30 each 2 5 Active labetaloL (NORMODYNE) 100 mg tablet Take 1 tablet (100 mg total) by mouth 2 (two) times a day. 180 tablet 3 5 Active LORazepam (ATIVAN) 0.5 mg tablet Take 1 tablet (0.5 mg total) by mouth 2 (two) times a day if needed. for anxiety 5 Active methocarbamoL (ROBAXIN) 750 mg tablet Take 1 tablet (750 mg total) by mouth 3 (three) times a day if needed for muscle spasms. 30 tablet 5 Active lactobacillus (Culturelle) 10 billion cell capsule Take 1 capsule by mouth 1 (one) time each day. Active bisacodyL (DULCOLAX) 5 mg EC tablet Take 1 tablet (5 mg total) by mouth 1 (one) time each day if needed for constipation. Do not crush, chew, or split. Active imatinib (GLEEVEC) 400 mg tablet Take 1 tablet (400 mg total) by mouth daily 5 Active ondansetron (ZOFRAN) 4 mg tablet Take 1 tablet (4 mg total) by mouth every 8 (eight) hours if needed for nausea or vomiting. Active budesonide (RHINOCORT AQ) 32 mcg/actuation nasal spray Administer 1 spray into affected nostril(s) 1 (one) time each day. 5 Active Breztri Aerosphere 160-9-4.8 mcg/actuation HFA aerosol inhaler inhaler Inhale 2 puffs by mouth 2 times daily. 5 Active busPIRone (BUSPAR) 5 mg tablet Take 1 tablet (5 mg total) by mouth 2 (two) times a day. 5 Active cetirizine (ZyrTEC) 10 mg tablet Take 1 tablet (10 mg total) by mouth 1 (one) time each day. 5 Active amphetamine-dextro amphetamine (ADDERALL) 5 mg tablet Take 1 tablet (5 mg total) by mouth 1 (one) time each day. Max Daily Amount: 5 mg 5 Active furosemide (LASIX) 20 mg tablet Take 1 tablet (20 mg total) by mouth 1 (one) time each day. 5 Active ipratropium-albute roL (DUONEB) 0.5-2.5 mg/3 mL nebulizer solution 3 mL by inhal. via small vol.nebulizer route every 6 (six) hours. 5 Active loperamide (IMODIUM) 2 mg capsule Take 1 capsule (2 mg total) by mouth 3 (three) times a day if needed. 5 Active OLANZapine (ZyPREXA ZYDIS) 5 mg disintegrating tablet Take 1 tablet (5 mg total) by mouth daily. Active oxyCODONE-acetamin ophen (PERCOCET) 2.5-325 mg per tablet Take 1 tablet by mouth every 4 (four) hours if needed. 4 Active prochlorperazine (COMPAZINE) 5 mg tablet Take 1 tablet (5 mg total) by mouth every 6 hours as needed. 5 Active senna (SENOKOT) 8.6 mg tablet Take 1-2 tablets (8.6-17.2 mg total) by mouth daily. 5 Active SUNItinib malate (SUTENT) 12.5 mg capsule Take 2 capsules (25 mg total) by mouth daily 5 Active polyethylene glycol (MIRALAX) 17 gram packet Take 17 g by mouth daily. 5 Active traZODone (DESYREL) 50 mg tablet Take 1 tablet (50 mg total) by mouth at bedtime. 5 Active Anoro Ellipta 62.5-25 mcg/actuation inhaler Inhale 1 puff by mouth 1 (one) time each day. 5 Active losartan (COZAAR) 25 mg tablet Take 1 tablet (25 mg total) by mouth daily. 5 Active amLODIPine (NORVASC) 5 mg tablet Take 1 tablet (5 mg total) by mouth 1 (one) time each day. 5 Active potassium chloride (Klor-Con) 20 mEq packetIndications: Hypokalemia DISSOLVE 1 PACKET(20MEQ) IN LIQUID AND DRINK BY MOUTH ONCE DAILY 90 packet 1 5 Active DULoxetine (CYMBALTA) [address] capsule Do not crush or chew.TAKE 1 CAPSULE BY MOUTH DAILY. TAKE WITH 20MG CAPSULE FOR A TOTAL DOSE OF 80MG DAILY. 90 capsule 1 5 Active docusate sodium (COLACE) 100 mg capsule Take 1 capsule (100 mg total) by mouth 2 (two) times a day. Active Active Problems Problem Noted Date Diagnosed Date Stage 4 chronic kidney disease ([facility] V24, CMS /HCC V28) 06/07/2025 Colon polyps 06/06/2025 Overview (06/08/2025): 06/04--adenoma x 2. 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 Atherosclerosis 01/24/2022 Overview (06/09/2024): Last Assessment & Plan: Mild coronary artery calcifications incidentally noted on CT imaging of the chest, continue medical management with atorvastatin 80 mg at bedtime and inclisiran infusions-most recent LDL very well-controlled, Assessment & Plan (11/02/2024 12:20 PM EDT): Mild coronary artery calcification incidentally noted on CT imaging of chest, continue medical management with atorvastatin 40 mg at bedtime. Most recent LDL is very well-controlled. Adrenal mass ([facility] V24) 11/26/2021 Bipolar affective disorder, currently depressed, mild ([facility] V24, [facility] V28) 11/26/2021 Calcium pyrophosphate deposition disease 022 Cobalamin deficiency 11/26/2021 Hidradenitis 11/26/2021 Neuropathic pain, leg, right 08/20/2021 COPD (chronic obstructive pu lmonary disease) ([facility] V24, [facility] V28) 05/12/2021 Overview (06/09/2024): Tob use age 16-66. 1 ppd Benign hypertensive renal disease 10/27/2020 Hyperparathyroidism due to r enal insufficiency ([facility] V24) 10/27/2020 Palpitations 08/22/2020 Overview (06/09/2024): Last Assessment & Plan: The patient has ongoing episodes of palpitations. For completeness, will obtain a Holter monitor to evaluate. Continue her beta-randall as prescribed. If needed, can uptitrate her labetalol to help control her blood pressure and her palpitations. Is plausible that her palpitations are triggered by anxiety and/or hypertension and continuing to treat these entities will help improve her symptoms of palpitations as well. Fibromyalgia 10/17/2010 Pneumothorax 10/17/2010 Overview (06/09/2024): 1970s times 4 Urinary incontinence 10/17/2010 Overview (06/09/2024): Urge incontinence Hypertension 06/14/2010 Overview (06/09/2024): Last Assessment & Plan: The patient's blood pressure is robust in office today. She is understandably quite anxious and upset about her cancer diagnosis. Further, she drinks a significant amount of electrolyte water that has a high sodium content. We discussed how anxiety and the salt load are both adding to her elevated blood pressure. As such, I will not make medication changes today. Instead, I have asked her to switch from her electrolyte water to regular water. I have also reached out to her PCP team with a consideration of alternate strategies for mitigating her anxiety. The patient and I discussed how long-term benzodiazepine use is not an effective way to manage her longstanding anxiety. She does understand this and agree. Her PCP team will follow up with her. Assessment & Plan (11/02/2024 12:20 PM EDT): Patient is going to have her labetalol increased from 50 mg p.o. twice daily to 100 mg p.o. twice daily. I like her to check blood pressures 2 hours after she takes her medications when she is calm and relatively pain-free. I educated her on signs of worsening symptoms. Instructed to call 911 or go to the emergency room should the patient begin to experience chest pain or pressure lasting greater than 10 minutes does not resolve with rest. Atrial septal aneurysm 05/17/2010 Overview (02/25/2025): Incidental finding on echo. Seen by Dr. Ruth. Chronic back pain 01/18/2010 Overview (06/09/2024): [facility] pain management 02/17. Advised aquatherapy/PT. Nephrolithiasis 09/23/2008 Overview (06/09/2024): Declined ESWL in March 2010. 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 She has not had a Leqvio injection in her estimation in about 8 months. Will discuss timing of resumption of injections with Dr. Slater when she returns to the office as patient has upcoming surgical interventions for her cancer. Assessment & Plan (11/02/2024 12:20 PM EDT): Most recent LDL is very well-controlled continue atorvastatin 40 mg at bedtime. Resolved Problems Problem Noted Date Diagnosed Date Resolved Date Hypokalemia 09/30/2024 04/14/2025 AAA (abdominal aortic aneurysm) ([facility] V24) 08/28/19 24 04/14/2025 Dyspnea 11/26/2021 04/14/2025 Aortic aneurysm (CMS/HCC V24) 08/18/2020 04/14/2025 Overview (06/09/2024): Dr. Garcia Last Assessment & Plan: Dilated aorta 4.1 cm on echocardiogram from May 2022. This can be followed yearly however unlikely to be a surgical candidate. We will continue to monitor. Assessment & Plan (11/02/2024 12:20 PM EDT): Dilated 4.1 cm on echocardiogram from May 2022. This can be followed yearly however unlikely to be surgical candidate. Will order echocardiogram for later this year. Encounters Date Type Department Care Team Description 06/08/2025 Results Follow-Up Adult Medicine - [place] [address] [place] [id number] Cornelius Perez MD 06/07/2025 1:30 PM EDT Office Visit Adult Medicine - [place] [address] [place] [address] Cornelius Perez MD Rectal bleeding (Primary Dx); Stage 4 chronic kidney disease ([facility] V24, [facility] V28); Bipolar affective disorder, currently depressed, mild ([facility] V24, [facility] V28); Anemia, unspecified type; Hospital discharge follow-up; Constipation, unspecified constipation type 06/06/2025 Telephone Adult [address] [address] Cornelius Perez MD 06/06/[address] [phone] Cornelius Perez MD 06/02/[address] [phone] Cornelius Perez MD 05/23/[address] [phone] Cornelius Perez MD 05/16/[address] [phone] Cornelius Perez MD 04/18/2025 1:00 PM EDT Office Visit [address] [phone] Roxana Eng NP CKD stage G3b/A1, GFR 30-44 and albumin creatinine ratio <30 mg/g ([facility] [place], [facility] V28) (Primary Dx); Anxiety; 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 ([facility] V24, [facility] V28); Episode of recurrent major depressive disorder, unspecified depression episode severity ([facility] V24); Forgetfulness; Dysuria 04/14/2025 9:50 AM EDT Office Visit [facility] [address] [facility] [address] [place] [address] Tam Slater MD Ascending aorta dilatation ([facility] V24) (Primary Dx); Primary hypertension; Cardiomegaly; Hypercholesteremia from Last 3 Months Immunizations Immunization Administration Dates Next Due Influenza Quadravalent, 0.5m l (Fluzone High-dose) 65yo and older 04/02/2022 Influenza Whole 04/13/2020 Influenza trivalent, 0.5mL ( Fluad) 65yo and older 06/09/2024,04/25/2023,05/11/2022,04/25,04/14/2018 Influenza trivalent, 0.5mL ( Fluzone High-dose) 65yo and older 04/25/2023,05/11/2022,04/25/2021,03/19,03/26/2016,05/17/2015,04/01/2015 Influenza trivalent, 0.5mL, preservative free (Fluarix; FluLaval; Fluzone) ages 6mo and older (Afluria) 3 years and older 04/13/2020 Moderna SARS-CoV-2 COVID-19, mRNA, LNP-S, preservative free 05/05/2021 Pneumococcal conjugate 13 va lent (Prevnar 13, PCV13) 2mo and older 06/17/2014 Pneumococcal polysaccharide 23 valent (Pneumovax 23) 2yo and older 05/18/2016,12/15/2014,08/25/2008 Tdap Tetanus diptheria acell ular pertussis (Boostrix; Adacel) 7yo and older 09/15/2008 Zoster Live 04/27/2014 Zoster recombinant (Shingrix ) 19yo and older 11/27/2017 Surgical History Surgery Date Site/Laterality Comments HYSTERECTOMY 1972 PROCEDURE: HISTORICAL HYSTERECTOMY CARPAL TUNNEL RELEASE 1984 PROCEDURE: HI NEUROPLASTY &/TRANSPOS MEDIAN NRV CARPAL TUNNE APPENDECTOMY PROCEDURE: HISTORICAL APPENDECTOMY TONSILLECTOMY PROCEDURE: HISTORICAL TONSILLECTOMY OTHER SURGICAL HISTORY 1997 PROCEDURE: HISTORICAL SUBTOTAL THYROIDECTOMY SHOULDER SURGERY PROCEDURE: HISTORICAL SHOULDER SURGERY; COMMENT: left - ? bursitis Medical History Medical History Date Comments Historical Medical DX DX:Pheochr omocytoma NOS; COMMENT: MIBG positive left adrenal / elevated metanephrines Hyperparathyroidism ([facility] V24) DX:Hyperparathyroidism; COMMENT: positive sestamibi scan Dyslipidemia DX:Dyslipidemia Bipolar disorder ([facility] V2 4, [facility] V28) DX:Bipolar disorder ([facility]) History of pneumothorax DX:Histo ry of pneumothorax; COMMENT: spontaneous pneumothorax/ had chest tube placement Hyperparathyroidism ([facility] V24) 08/01/2008 DX:Hyperparathyroidism ([facility]); COMMENT: Unable to localize location of adenoma Depression 07/27/2008 DX:Depression Pneumothorax 10/17/2010 DX:Pneumothorax Urinary incontinence 10/17/2010 DX:Urinary incontinence COPD (chronic obstructive pu lmonary disease) ([facility] V24, [facility] V28) 05/12/2021 DX:COPD (chronic o bstructive pulmonary disease) ([facility]) Prolapsed hemorrhoids DX:Prolaps ed hemorrhoids Multiple thyroid nodules DX:Mult iple thyroid nodules Pulmonary nodules DX:Pulmonary n odules Epigastric pain DX:Epigastric pa in Esophageal reflux DX:Esophageal reflux Neck and shoulder pain DX:Neck a nd shoulder pain Kidney stone DX:Kidney stone Hemorrhoids DX:Hemorrhoids Anxiety DX:Anxiety Calcium pyrophosphate deposition disease DX:Calcium pyrophosphate deposition disease Asthma-chronic obstructive p ulmonary disease overlap syndrome ([facility] V24, [facility] V28) DX:Asthma-chronic obstructiv e pulmonary disease overlap syndrome ([facility]) Family History Medical History Relation Name Comments No Known Problems Brother 1 Diabetes Brother 2 half brother Hypertension Brother 3 Other: skin cancer Daughter Heart failure Father Other: brain tumor Father Arthritis Maternal Grandmother COPD Mother Crohn's disease Mother Depression Mother's side Anemia Sister 1 Thyroid disease Sister 1 No Known Problems Sister 2 No Known Problems Son Relation Name Status Comments Brother 1 Alive Brother 2 half brother Brother 3 Alive Daughter Alive Father Maternal Grandmother Mother Mother's side Sister 1 Alive Sister 2 Son Alive Social History Tobacco Use Types Packs/Day Years [...] Orientation Straight 09/24/2024 4: 05 PM EST Obstetrics History Last Filed Vital Signs Vital Sign Reading Time Taken Comments Blood Pressure 139/54 06/07/2025 1:40 PM EDT Pulse 81 06/07/2025 1:40 PM EDT Temperature 36.7 C (98.1 F) 06/07/2025 1:40 PM EDT Respiratory Rate 20 03/02/2025 2:39 PM EDT Oxygen Saturation 96% 04/14/2025 9:51 AM EDT Inhaled Oxygen Concentration - - Weight 56.6 kg (124 lb 12.8 oz) 06/07/2025 1:40 PM EDT Height 166.4 cm (5' 5.5 ) 06/07/2025 1:40 PM EDT Body Mass Index 20.45 06/07/2025 1:40 PM EDT Plan of Treatment Upcoming Encounters Date Type Department Care Team (Late st Contact Info) Description 06/22/2025 1:00 PM EST Office Visit Adult Medicine [facility] [address] [place] [phone] Roxana Eng NP [address] [place] [address] 07/12/2025 2:30 PM EST Office Visit Adult Medicine - [place] [address] [place] [address] Cornelius Perez MD [address] [place] [address] 07/14/2025 12:30 PM EST Ancillary Procedure [facility] [address] [facility] [address] [place] [address] 09/05/2025 1:00 PM EST Office Visit Pulmonology - [place] [address] [facility] [address] [place] [phone] Eron Camarillo MD [address] [place] [phone] Health Maintenance Due Date Last Done Comments Zoster Vaccines (2 of 2) 01/22/2018 11/27/2017, 04/11 DTaP,Tdap,and Td Vaccines (2 - Td or Tdap) 09/15/2018 09/15/2008 Falls Risk Assessment 07/20/2022 Hepatitis C Screening 07/20/2022 Lung Cancer Screening (Low Dose CT) 07/20/2022 Osteoporosis Screening (Bone Density Screening) 07/20/2022 Social Influencers of Health Screening 07/20/2022 RSV Immunization Adult Patients (1 - 1-dose 75+ series) 2022 Medicare Annual Wellness Visit 04/08/2024 04/08/2023 Depression Screening 08/11/2024 COVID-19 Vaccine ( season) 2025 06/08/2022, 06/08/2021, 05/05/2021, Additional history exists Hypertension/CHF/CAD Annual BMP Blood Test 06/07/2026 06/07/2025, 04/22/2025, 02/21/2025, Additional history exists Cholesterol Screening (Lipid Panel) 08/23/2029 08/23/2024, 05/03/2024, 05/03/2024 Colorectal Cancer Screening: Colonoscopy 06/01/2030 06/01/2025, 04/22/2025, 02/11/2012 Pneumococcal Vaccine: 50+ Years Completed 05/18/2016, 12/15/2014, 06/17/2014, Additional history exists Influenza Vaccine Completed 04/29/2025, , 04/25/2023, Additional history exists HIB Vaccines Aged Out No longer eligi ble based on patient's age to complete this topic HPV Vaccines Aged Out No longer eligi ble based on patient's age to complete this topic Hepatitis A Vaccines Aged Out No long er eligible based on patient's age to complete this topic Hepatitis B Vaccines Aged Out No long er eligible based on patient's age to complete this topic IPV Vaccines Aged Out No longer eligi ble based on patient's age to complete this topic MMR Vaccines Aged Out No longer eligi ble based on patient's age to complete this topic Meningococcal ACWY Vaccine Aged Out N o longer eligible based on patient's age to complete this topic Meningococcal B Vaccine Aged Out No l onger eligible based on patient's age to complete this topic RSV Immunization Patients Under 20 months Aged Out No longer eligible based on patient's age to complete this topic Varicella Vaccines Aged Out No longer eligible based on patient's age to complete this topic Procedures Procedure Name Priority Date/Time Associated Diagnosis Comments CBC WITH AUTO DIFFERENTIAL Routine 06/07/2025 2:26 PM EDT Anemia, unspecified type COMPREHENSIVE METABOLIC PANEL Routine 06/07/2025 2:26 PM EDT Stage 4 chronic kidney disease ([facility] V24, [facility] V28) CBC AND DIFFERENTIAL Routine 06/07/2025 2:26 PM EDT Anemia, unspecified type IRON AND TIBC Routine 06/07/2025 2:26 PM EDT Anemia, unspecified type EXTERNAL COLONOSCOPY REPORT 06/01/2025 EXTERNAL COLONOSCOPY REPORT Routine 04/22/2025 8:35 AM EDT CULTURE URINE Routine 04/18/2025 2:05 PM EDT Dysuria ECG 12-LEAD Routine 04/14/2025 9:58 AM EDT Ascending aorta dilatation ([facility] V24) LIPID PANEL WITH REFLEX TO DIRECT LDL Routine 08/23/2024 11:52 AM EST Hypercholesteremia from Last 3 Months or Most Recently Relevant to Health Maintenance Results * (ABNORMAL) CBC auto differential (06/07/2025 2:26 PM EDT) WBC 3.7(L) 4.8 - 10.8 K/mcL LAB HEMETOLOGY METHOD 06/07/2025 3:34 PM EDT [facility] RBC 3.00(L) 3.80 - 4.80 M/mcL LAB HEMETOLOGY METHOD 06/07/2025 3:34 PM EDT [facility] Hemoglobin 9.9(L) 11.5 - 16.0 g/dL LAB HEMETOLOGY METHOD 06/07/2025 3:34 PM EDT [facility] Hematocrit 30.3(L) 35.0 - 47.0 % LAB HEMETOLOGY METHOD 06/07/2025 3:34 PM EDT [facility] MCV 99.7(H) 79.0 - 98.0 FL LAB HEMETOLOGY METHOD 06/07/2025 3:34 PM EDT [facility] MCH 32.6(H) 27.0 - 32.0 pcg LAB HEMETOLOGY METHOD 06/07/2025 3:34 PM EDT [facility] MCHC 32.7 32.0 - 37.0 g/dL LAB HEMETOLOGY METHOD 06/07/2025 3:34 PM EDT [facility] RDW 16.0(H) 11.0 - 15.0 % LAB HEMETOLOGY METHOD 06/07/2025 3:34 PM EDT [facility] Platelets 206 130 - 400 K/mcL LAB HEMETOLOGY METHOD 06/07/2025 3:34 PM EDT [facility] MPV 9.5 7.0 - 11.0 FL LAB HEMETOLOGY METHOD 06/07/2025 3:34 PM EDT [facility] NRBC 0.0 <1.0 % LAB HEMETOLOGY METHOD 06/07/2025 3:34 PM EDT [facility] NRBC Absolute 0.00 <0.10 K/mcL LAB HEM[facility]OLOGY [facility]/07[facility] Neutrophils Relative 45.6 % LAB HEMETOLOGY METHOD 06/07/2025 3:34 PM EDT [facility] Lymphocytes Relative 43.0 % LAB HEMETOLOGY METHOD 06/07/2025 3:34 PM EDT [facility] Monocytes Relative 9.5 % LAB HEMETOLOGY METHOD 06/07/2025 3:34 PM EDT [facility] Eosinophils Relative 1.6 % LAB HEMETOLOGY METHOD 06/07/2025 3:[facility] Basophils Relative 0.3 % LAB HEMETOLOGY METHOD 06/07/2025 3:34 PM EDT [facility] Immature Granulocytes Relative 0.0 % LAB HEMETOLOGY METHOD 06/07/2025 3:34 PM EDT [facility] Neutrophils Absolute 1.69 1.50 - 7.00 K/mcL LAB HEMETOLOGY METHOD 06/07/2025 3:34 PM EDT [facility] Lymphocytes Absolute 1.59 1.00 - 5.00 K/mcL LAB HEMETOLOGY METHOD 06/07/2025 3:34 PM EDT [facility] Monocytes Absolute 0.35 0.20 - 1.00 K/mcL LAB HEMETOLOGY METHOD 06/07/2025 3:34 PM EDT [facility] Eosinophils Absolute 0.06 0.00 - 0.50 K/mcL LAB HEMETOLOGY METHOD 06/07/2025 3:34 PM EDT [facility] Basophils Absolute 0.01 0.00 - 0.20 K/mcL LAB HEMETOLOGY METHOD 06/07/2025 3:34 PM EDT [facility] Immature Granulocytes Absolute 0.00 0.00 - 0.03 K/mcL LAB HEMETOLOGY METHOD 06/07/2025 3:34 PM EDT [facility] Blood Venous blood specimen / Unknown Venipuncture / Unknown 06/07/2025 2:26 PM EDT 06/07/2025 2:26 PM EDT C Christopher Perez MD LAB BLOOD ORDERABLES Final Res ult [facility] [address] [place] [address], * Iron and TIBC (06/07/2025 2:26 PM EDT) Iron 111 40 - 150 mcg/dL LAB CHEMISTRY METHOD 06/07/2025 4:09 PM EDT [facility] TIBC 326 250 - 450 mcg/dL LAB CHEMISTRY METHOD 06/07/2025 4:09 PM [facility] Iron Saturation 34 15 - 50 % LAB CHEMISTRY METHOD 06/07/2025 4:09 PM [facility] Blood Venous blood specimen / Unknown Venipuncture / Unknown 06/07/2025 2:26 PM EDT 06/07/2025 2:26 PM EDT C Christopher Perez MD LAB BLOOD ORDERABLES Final Res ult [facility] [address] [place] [address], [place] [phone] * (ABNORMAL) Comprehensive metabolic panel (06/07/2025 2:26 PM EDT) Sodium 137 133 - 145 mmol/L LAB CHEMISTRY METHOD 06/07/2025 4:09 PM [facility] Potassium 3.4(L) 3.5 - 5.5 mmol/L LAB CHEMISTRY METHOD 06/07/2025 4:09 PM [facility] Chloride 100 96 - 110 mmol/L LAB CHEMISTRY METHOD 06/07/2025 4:09 PM [facility] CO2 34(H) 21 - 32 mmol/L LAB CHEMISTRY METHOD 06/07/2025 4:09 PM [facility] Anion Gap 3 3 - 11 LAB CHEMISTRY METHOD 06/07/2025 4:09 PM [facility] Glucose 96 70 - 100 mg/dL LAB CHEMISTRY METHOD 06/07/2025 4:09 PM [facility] BUN 18 5 - 25 mg/dL LAB CHEMISTRY METHOD 06/07/2025 4:09 PM [facility] Creatinine 1.82(H) 0.50 - 1.10 mg/dL LAB CHEMISTRY METHOD 06/07/2025 4:09 PM [facility] eGFR 28(L) >=60 mL/min/1. 73m2 LAB CHEMISTRY METHOD 06/07/2025 4:09 PM T [facility] Comment:Calculation based on the Chronic Kidney Disease Epidemiology Collaboration (CKD-EPI) equation refit without adjustment for race. BUN/Creatinine Ratio 9.9 LAB CHEMISTRY METHOD 06/07/2025 4:09 PM [facility] Calcium 8.9 8.5 - 10.5 mg/dL LAB CHEMISTRY METHOD 06/07/2025 4:09 PM [facility] AST (SGOT) 23 10 - 42 unit/L LAB CHEMISTRY METHOD 06/07/2025 4:09 PM [facility] ALT (SGPT) 25 10 - 60 unit/L LAB CHEMISTRY METHOD 06/07/2025 4:09 PM [facility] Alkaline Phosphatase 67 42 - 121 unit/L LAB CHEMISTRY METHOD 06/07/2025 4:09 PM [facility] Total Protein 6.4 6.0 - 8.0 g/dL LAB CHEMISTRY METHOD 06/07/2025 4:09 PM [facility] Albumin 3.9 3.2 - 5.0 g/dL LAB CHEMISTRY METHOD 06/07/2025 4:09 PM [facility] Total Bilirubin 0.5 0.0 - 1.4 mg/dL LAB CHEMISTRY METHOD 06/07/2025 4:09 PM [facility] Blood Venous blood specimen / Unknown Venipuncture / Unknown 06/07/2025 2:26 PM EDT 06/07/2025 2:26 PM EDT us C Christopher Perez MD LAB BLOOD ORDERABLES Final Res ult [facility] [address] [place] [address], * External Colonoscopy Report (06/01/2025) Only the most recent of2 resultswithin the time period is included. Anatomical Region Laterality Modality Endoscopy Provider [facility] GI~PROCEDURE ORDERABLES Final Result * Culture urine (04/18/2025 2:05 PM EDT) Pathologist [facility] Culture, Urine No growth 04/19/2025 1:42 PM EDT [facility] Urine Urine specimen obtained by clean catch procedure / Unknown Non-blood Collection / Unknown 04/18/2025 2:05 PM EDT 04/18/2025 2:05 PM EDT Roxana Eng NP LAB MICROBIOLOGY - GENERAL ORD ERABLES Final Result [facility] [address] [place] [address], [place] [phone] * ECG 12 lead (04/14/2025 9:58 AM EDT) Pathologist [facility] Ventricular Rate ECG 68 BPM GEMUSE Atrial Rate 68 BPM GEMUSE P-R Interval 154 ms GEMUSE QRS Duration 76 ms GEMUSE Q-T Interval 420 ms GEMUSE QTc 446 ms GEMUSE P Wave [place] 82 degrees GEMUSE R [place] 28 degrees GEMUSE T [place] 77 degrees GEMUSE ECG Interpretation Sinus rhythm with occasional Premature ventricular complexes Possible Left atrial enlargement Borderline ECG When compared with ECG of 24-SEP-2024 18:02, Premature ventricular complexes are now Present T wave amplitude has increased in Inferior leads Confirmed by TAM SLATER ([id number]) on 05/06/2025 4:06:19 PM GEMUSE 04/14/2025 9:58 AM EDT 05/06/2025 4:06 PM EDT Tam Slater MD ECG ORDERABLES Final Result Performing Organization Address City/[facility]/ZIP Co de Phone Number GEMUSE * Lipid panel with reflex to direct LDL (08/23/2024 11:52 AM EST) Pathologist [facility] Cholesterol 138 0 - 200 mg/dL LAB CHEMISTRY METHOD 08/23/2024 4:34 PM EST [facility] Triglycerides 87 0 - 150 mg/dL LAB CHEMISTRY METHOD 08/23/2024 4:34 PM [facility] HDL 86 >=40 mg/dL LAB CHEMISTRY METHOD 08/23/2024 4:34 PM [facility] LDL Calculated 35 0 - 100 mg/dL LAB CHEMISTRY METHOD 08/23/2024 4:34 PM [facility] VLDL Cholesterol Sukumar 17.4 mg/dL LAB CHEMISTRY METHOD 08/23/2024 4:34 PM [facility] Non HDL Chol. (LDL+VLDL) 52 <145 mg/dL LAB CHEMISTRY METHOD 08/23/2024 4:34 PM [facility] Chol/HDL Ratio 1.6 0.0 - 4.4 LAB CHEMISTRY METHOD 08/23/2024 4:34 PM [facility] Blood Venous blood specimen / Unknown Venipuncture / Unknown 08/23/2024 11:52 AM EST 08/23/2024 11:52 AM EST [facility] Christopher Perez MD LAB BLOOD ORDERABLES Final Res ult [facility] [address] [place] [address], from Last 3 Months or Most Recently Relevant to Health Maintenance Insurance MEDICARE [place]ICAID [place] Care Teams Instructor Warper Relationship Specialty Start Date End Date Cornelius Perez MD [address] [place] [address] PCP - General Internal Medicine 12/14/20
--- OUTSIDE RECORDS SUMMARY | 2025-06-08 16:59 | XMS_ITS | Encounter Summary ---
Author Organization [facility] Address [address] [facility] [address] [place] [address] Phone Care Team Providers Care Hot Knife Foxing Cutter Name Role Phone Srinivasa Perez MD Primary Care Provider + Chau Live MD Unavailable Farzana Castro RN Unavailable [email or web address] Will Singh MD Unavailable [phone] Jennifer Viera Unavailable [phone] Encounter Details Date Type Department Care Team (Late st Contact Info) Description 12/06/2024 Procedure Pass Jen [facility] Imaging Department, [facility] [place] [address] [facility], Floor [address] [place] [address] Social History Tobacco Use Types Packs/Day Years [...] PM EDT documented as of this encounter Functional Status * Calculated C-SSRS Risk Score (Lifetime/Recent) Answer Date of Assessment Author No Risk Indicated 12/07/2024 9:39 AM EDT Gina Eduardo LICSW * [place] Suicide Severity Rating Scale (Screener/Recent Self-Report) Question Answer Date of Assessment Author 1. Wish to be (Past 1 Month) No 12/07/2024 9:39 AM EDT Gina Eduardo LICSW 2. Non-Specific Active Suicidal Thoughts (Past 1 Month) No 12/07/2024 9:39 AM EDT Gina Eduardo LICSW 6. Suicidal Behavior (Lifetime) No 12/07/2024 9:39 AM EDT Gina Eduardo LICSW documented as of this encounter Plan of Treatment Upcoming Encounters Date Type Department Care Team (Late st Contact Info) Description 06/21/2025 10:20 AM EST Office Visit [facility] - [facility] [address] [place] [address] Catherine Amador MD [address] [address] [email or web address] 07/15/2025 8:40 AM EST Blood Draw Laboratory Services, [address], 2nd [place] [address] Max Rodriguez MD [address] [place] [address] [address] [place] [address] [email or web address] 07/15/2025 9:30 AM EST Office Visit [facility], [address], [address]th [place] [address] Max Rodriguez MD [address] [place] [address] [address] [place] [address] [email or web address] documented as of this encounter Visit Diagnoses Not on filedocumented in this encounter Additional Health Concerns Assessment Noted Time PHQ-9 Depression Total Score: 14 025 8:38 AM EDT PHQ-2 Depression Total Score: 6 01/20/20 25 1:43 PM EDT documented as of this encounter Care Teams Hot Knife Foxing Cutter Relationship Specialty Start Date End Date Srinivasa Perez MD [address] [place] [address] PCP - General Internal Medicine 04/20/24 Chau Live MD [address] [place] [address] [email or web address] Referring Physician 04/20/24 Farzana Castro RN [address] [place] [address] [email or web address] Primary Infusion Nurse 12/20/24 Will Singh MD [address] [place] [address] Nephrology 03/10/25 Jennifer Viera, [address] [address] [email or web address] Consulting Systems Engineer Oncology 04/13/25 documented as of this encounter Additional Source Comments The information contained in this document represents components of the legal health record. It is not the complete legal health record.[facility]
--- OUTSIDE RECORDS SUMMARY | 2025-06-08 16:59 | XMS_ITS | Encounter Summary ---
Author Organization [facility] Address [address] [facility] [address] [place] [address] Phone Care Team Providers Care Brusher Operator Name Role Phone Srinivasa Perez MD Primary Care Provider + Chau Live MD Unavailable Farzana Castro RN Unavailable [email or web address] Will Singh MD Unavailable [phone] Jennifer Viera Unavailable [phone] Encounter Details Date Type Department Care Team (Late st Contact Info) Description 06/07/2025 Ancillary Orders DF IMG OUTSIDE IMG [address] [place] [address] Max Rodriguez MD [address] [place], [place] [address] [place] [address] [email or web address] Social History Tobacco Use Types [...] Description 06/21/2025 10:20 AM EST Office Visit [facility] - [facility] [address] [place] [address] Catherine Amador MD [address] [place] [address] [email or web address] 07/15/2025 8:40 AM EST Blood Draw Laboratory Services, [facility] [address] [place] [address], 2nd [address] [place], [place] [address]Max Gill MD [address] [facility] [place] [address] [place] [address] [email or web address] 07/15/2025 9:30 AM EST Office Visit [facility], [facility] [place] [address] [facility], 6th [place] [address] Max Rodriguez MD [address] [facility] [address] [place] [address] [email or web address] documented as of this encounter Results * CT Chest Outside (No Interpretation) (05/28/2025 12:05 AM EDT) Other Narrative [facility] - 06/07/2025 11:35 AM EDT This study is for PACS storage only and not for interpretation. us Max Rodriguez MD IMG OUTSIDE IMAGING W/OU T INTERPRETATION Final Result [facility] documented in this encounter Visit Diagnoses Not on filedocumented in this encounter Additional Health Concerns Assessment Noted Time PHQ-9 Depression Total Score: 14 025 12:23 PM EDT PHQ-2 Depression Total Score: 3 04/22/20 25 12:23 PM EDT documented as of this encounter Care Teams Brusher Operator Relationship Specialty Start Date End Date Srinivasa Perez MD [address] [place] [address] PCP - General Internal Medicine 04/20/24 Chau Live MD [address] [place] [address] [email or web address] Referring Physician 04/20/24 Farzana Castro RN [address] [place] [address] [email or web address] Primary Infusion Nurse 12/20/24 Will Singh MD [address] [place] [address] Nephrology 03/10/25 Jennifer Viera, [facility] [address] [place] [address] [email or web address] Go Cart Mechanic Oncology 04/13/25 documented as of this encounter Additional Source Comments The information contained in this document represents components of the legal health record. It is not the complete legal health record.[facility]
--- OUTSIDE RECORDS SUMMARY | 2025-06-08 16:59 | XMS_ITS | Encounter Summary ---
Author Organization [facility] Address [address] [facility] [address] [place] [address] Phone Care Team Providers Care Department Secretary Name Role Phone Srinivasa Perez MD Primary Care Provider + Chau Live MD Unavailable Farzana Castro RN Unavailable [email or web address] Will Singh MD Unavailable [phone] Jennifer Viera Unavailable [phone] Encounter Details Date Type Department Care Team (Late st Contact Info) Description 06/07/2025 Ancillary Orders DF IMG OUTSIDE IMG [address] [place] [address] Max Rodriguez MD [address] [place], [place] [address] [place] [address] [email or web address] Social History Tobacco Use Types Packs/Day [...] Description 06/21/2025 10:20 AM EST Office Visit [facility] - [facility] Diseases [address] [place] [address] Catherine Amador MD [address] [place] [address] [email or web address] 07/15/2025 8:40 AM EST Blood Draw Laboratory Services, [facility] [place] [address] [place] [address], 2nd [place], [place] [address]Max Gill MD [address] [facility] [place] [address] [place] [address] [email or web address] 07/15/2025 9:30 AM EST Office Visit [facility], [facility] [place] [address] [facility], 6th [place] [address] Max Rodriguez MD [address] [facility] [address] [place] [address] [email or web address] documented as of this encounter Results * CT Abdomen/Pelvis Outside (No Interpretation) [...] documented as of this encounter Care Teams Department Secretary Relationship Specialty Start Date End Date Srinivasa Perez MD [address] [place] [address] PCP - General Internal Medicine 04/20/24 Chau Live MD [address] [place] [address] [email or web address] Referring Physician 04/20/24 Farzana Castro RN [address] [place] [address] [email or web address] Primary Infusion Nurse 12/20/24 Will Singh MD [address] [place] [address] Nephrology 03/10/25 Jennifer Viera, [facility] [address] [place] [address] [email or web address] Independent Film Maker Oncology 04/13/25 documented as of this encounter Additional Source Comments The information contained in this document represents components of the legal health record. It is not the complete legal health record.[facility]
--- OUTSIDE RECORDS SUMMARY | 2025-06-08 16:59 | XMS_ITS | Encounter Summary ---
Author Organization [employer] [place] [address] Care Team Providers Care Nuclear Physics Professor Name Role Phone Cornelius Perez MD Primary Care Provider [phone] Encounter Details Date Type Department Care Team (Late st Contact Info) Description 09/09/2024 Lab Requisition [facility] - Main Lab [address] [facility] [place] [address] Nohemi Alejandro MD [address] [place] [address] Essential (primary) hypertension Social History Tobacco Use [...] of Assessment Author No 06/12/2024 9:46 AM BABAKT Shamika Kinney RN * Are you blind or do you have serious difficulty seeing, even when wearing glasses? Answer Date of Assessment Author No 06/12/2024 9:46 AM Shamika Mcfarland RN * Do you have serious difficulty walking or climbing stairs? Answer Date of Assessment Author No 06/12/2024 9:46 AM Shamika Mcfarland RN * Do you have serious difficulty dressing or bathing? Answer Date of Assessment Author No 06/12/2024 9:46 AM Shamika Mcfarland RN * Because of a physical, mental, [...] Shamika Mcfarland RN documented in this encounter Plan of Treatment Upcoming Encounters Date Type Department Care Team (Late st Contact Info) Description 06/22/2025 1:00 PM EST Office Visit Adult Medicine [facility] [address] [place] [address] Roxana Eng NP [address] [place], [place] 07/12/2025 2:30 PM EST Office Visit Adult Medicine [facility] [address] [place] [address] Cornelius Perez MD [address] [place] [address] 07/14/2025 12:30 PM EST Ancillary Procedure [facility] - [facility] [address] [facility] [address] [place] [phone] 09/05/2025 1:00 PM EST Office Visit Pulmonology - [place] [address] [facility] [address] [place] [address] Eron Camarillo MD [address] [place] [address] documented as of this encounter Procedures Procedure Name Priority Date/Time Associated Diagnosis Comments COMPLETE BLOOD COUNT Routine 09/09/2024 6:42 AM EST Essential (primary) hypertension BASIC METABOLIC PANEL Routine 09/09/2024 6:42 AM EST Essential (primary) hypertension documented in this encounter Results * (ABNORMAL) Basic metabolic panel (09/09/2024 6:42 AM EST) Sodium 139 133 - 145 mmol/L LAB CHEMISTRY METHOD 09/09/2024 12:02 PM [facility] Potassium 4.0 3.5 - 5.5 mmol/L LAB CHEMISTRY METHOD 09/09/2024 12:02 PM [facility] Chloride 100 96 - 110 mmol/L LAB CHEMISTRY METHOD 09/09/2024 12:02 PM [facility] CO2 34(H) 21 - 32 mmol/L LAB CHEMISTRY METHOD 09/09/2024 12:02 PM [facility] Anion Gap 5 3 - 11 LAB CHEMISTRY METHOD 09/09/2024 12:02 PM [facility] Glucose 95 70 - 100 mg/dL LAB CHEMISTRY METHOD 09/09/2024 12:02 PM [facility] BUN 25 5 - 25 mg/dL LAB CHEMISTRY METHOD 09/09/2024 12:02 PM [facility] Creatinine 1.69(H) 0.50 - 1.10 mg/dL LAB CHEMISTRY METHOD 09/09/2024 12:02 PM [facility] eGFR 31(L) >=60 mL/min/1. 73m2 LAB CHEMISTRY METHOD 09/09/2024 12:02 PM [facility] Comment:Calculation based on the Chronic Kidney Disease Epidemiology Collaboration (CKD-EPI) equation refit without adjustment for race. BUN/Creatinine Ratio 14.8 LAB CHEMISTRY METHOD 09/09/2024 12:02 PM [facility] Calcium 9.2 8.5 - 10.5 mg/dL LAB CHEMISTRY METHOD 09/09/2024 12:02 PM [facility] Blood Venous blood specimen / Unknown Venipuncture / Unknown 09/09/2024 6:42 AM EST 09/09/2024 10:20 AM EST us Nohemi Alejandro MD LAB BLOOD ORDERABLES Final Resu lt [facility] [address] [place] [address], [place] [phone] * (ABNORMAL) Complete blood count (09/09/2024 6:42 AM EST) WBC 6.4 4.8 - 10.8 K/mcL LAB HEMETOLOGY METHOD 09/09/2024 11:47 AM [facility] RBC 3.20(L) 3.80 - 4.80 M/mcL LAB HEMETOLOGY METHOD 09/09/2024 11:47 AM [facility] Hemoglobin 10.0(L) 11.5 - 16.0 g/dL LAB HEMETOLOGY METHOD 09/09/2024 11:47 AM [facility] Hematocrit 32.0(L) 35.0 - 47.0 % LAB HEMETOLOGY METHOD 09/09/2024 11:47 AM [facility] MCV 99.1(H) 79.0 - 98.0 FL LAB HEMETOLOGY METHOD 09/09/2024 11:47 AM [facility] MCH 31.0 27.0 - 32.0 pcg LAB HEMETOLOGY METHOD 09/09/2024 11:47 AM [facility] MCHC 31.3(L) 32.0 - 37.0 g/dL LAB HEMETOLOGY METHOD 09/09/2024 11:47 AM [facility] RDW 13.0 11.0 - 15.0 % LAB HEMETOLOGY METHOD 09/09/2024 11:47 AM EST [facility] Platelets 270 130 - 400 K/mcL LAB HEMETOLOGY METHOD 09/09/2024 11:47 AM EST [facility] MPV 10.0 7.0 - 11.0 FL LAB HEMETOLOGY METHOD 09/09/2024 11:47 AM EST [facility] NRBC 0.0 <1.0 % LAB HEMETOLOGY METHOD 09/09/2024 11:47 AM [facility] NRBC Absolute 0.00 <0.10 K/mcL LAB HEMETOLOGY METHOD 09/09/2024 11:47 AM [facility] Blood Venous blood specimen / Unknown Venipuncture / Unknown 09/09/2024 6:42 AM EST 09/09/2024 10:20 AM EST us Nohemi Alejandro MD LAB BLOOD ORDERABLES Final Resu lt [facility] [address] [place] [address], documented in this encounter Visit Diagnoses Diagnosis Essential (primary) hypertension Unspecified essential hypertension documented in this encounter Additional Health Concerns Infection Onset Date Last Indicated Resolved Time COVID-19 08/17/2024 08/17/2024 09/16/2024 7:05 PM EST documented as of this encounter Care Teams Nuclear Physics Professor Relationship Specialty Start Date End Date Cornelius Perez MD [address] [place] [address] PCP - General Internal Medicine 12/14/20 documented as of this encounter
--- OUTSIDE RECORDS SUMMARY | 2025-06-08 17:00 | XMS_ITS | Encounter Summary ---
Author Organization [facility] Address [address] [place] [address] Care Team Providers Care Retouching Operator Name Role Phone Cornelius Perez MD Primary Care Provider [phone] Reason for Visit * Reason Onset Date Comments VNA/FYI Provider 06/06/2025 Encounter Details Date Type Department Care Team ([facility] st Contact Info) Description 06/06/2025 Telephone Adult Medicine - [place] [address] [place] [address] Cornelius Perez MD [address] [place] [address] Social History Tobacco Use Types Packs/Day Years [...] Entry Date Author No 06/12/2024 9:46 AM EDShamika Padilla RN documented in this encounter Progress Notes * Casey Deal RN - 06/06/2025 1:52 PM EDT noted * Susan Ying - 06/06/2025 1:46 PM EDT [facility]. They took on patient this morning for Depression and Anxiety and to help her manage her meds. If you have any questions: [phone] documented in this encounter Plan of Treatment Upcoming Encounters Date Type Department Care Team (Late st Contact Info) Description 06/22/2025 1:00 PM EST Office Visit Adult Medicine [facility] [address] [place] [address] Roxana Eng NP [address] [place] [address] 07/12/2025 2:30 PM EST Office Visit Adult Medicine - [place] [address] [place] [phone] Cornelius Perez MD [address] [place] [address] 07/14/2025 12:30 PM EST Ancillary Procedure [facility] - [facility] [address] [place] [phone] 09/05/2025 1:00 PM EST Office Visit Pulmonology - [place] [address] [facility] [address] [place] [phone] Eron Camarillo MD [address] [place] [phone] documented as of this encounter Visit Diagnoses Not on filedocumented in this encounter Care Teams Retouching Operator Relationship Specialty Start Date End Date Cornelius Perez MD [address] [place] [address] PCP - General Internal Medicine 12/14/20 documented as of this encounter
--- OUTSIDE RECORDS SUMMARY | 2025-06-08 17:00 | XMS_ITS | Encounter Summary ---
Author Organization [facility] Address [address] [place] [address] Care Team Providers Care Computer Hardware Technician Name Role Phone Cornelius Perez MD Primary Care Provider Encounter Details Date Type Department Care Team (Late st Contact Info) Description 09/16/2024 Lab Requisition [facility] - Main Lab [address] [facility] [place] [address] Yanelis De Anda MD [address] [id number] Gastrointestinal stromal tumor, unspecified site (CMS/HCC V24, CMS/HCC V28); Chronic kidney disease, stage 4 (severe) (CMS/HCC V24, CMS/HCC V28) Social History Tobacco Use Types Packs/Day Years [...] 06/12/2024 9:46 AM Shamika Mcfarland RN * Are you blind or do [...] 1:00 PM EST Office Visit Adult Medicine [facility] [address] [place] [address] Roxana Eng NP [address] [place] [address] 07/12/2025 2:30 PM EST Office Visit Adult Medicine [facility] [address] [place] [address] Cornelius Perez MD [address] [place] [address] 07/14/2025 12:30 PM EST Ancillary Procedure [facility] - [facility] [address] [place] [address] 09/05/2025 1:00 PM EST Office Visit Pulmonology - [place] [address] [facility] [address] [place] [address] Eron Camarillo MD [address] [place] [address] documented as of this encounter Procedures Procedure Name Priority Date/Time Associated Diagnosis Comments BASIC METABOLIC PANEL Routine 09/16/2024 6:26 AM EST Gastrointestinal stromal tumor, unspecified site (CMS/HCC) Chronic kidney disease, stage 4 (severe) (CMS/HCC) documented in this encounter Results * (ABNORMAL) Basic metabolic panel (09/16/2024 6:26 AM EST) Sodium 139 133 - 145 mmol/L LAB CHEMISTRY METHOD 09/16/2024 9:49 AM [facility] Potassium 3.7 3.5 - 5.5 mmol/L LAB CHEMISTRY METHOD 09/16/2024 9:49 AM [facility] Chloride 100 96 - 110 mmol/L LAB CHEMISTRY METHOD 09/16/2024 9:49 AM [facility] CO2 34(H) 21 - 32 mmol/L LAB CHEMISTRY METHOD 09/16/2024 9:49 AM [facility] Anion Gap 5 3 - 11 LAB CHEMISTRY METHOD 09/16/2024 9:49 AM [facility] Glucose 78 70 - 100 mg/dL LAB CHEMISTRY METHOD 09/16/2024 9:49 AM [facility] BUN 34(H) 5 - 25 mg/dL LAB CHEMISTRY METHOD 09/16/2024 9:49 AM [facility] Creatinine 1.70(H) 0.50 - 1.10 mg/dL LAB CHEMISTRY METHOD 09/16/2024 9:49 AM [facility] eGFR 31(L) >=60 mL/min/1. 73m2 LAB CHEMISTRY METHOD 09/16/2024 9:49 AM [facility] Comment:Calculation based on the Chronic Kidney Disease Epidemiology Collaboration (CKD-EPI) equation refit without adjustment for race. BUN/Creatinine Ratio 20.0 LAB CHEMISTRY METHOD 09/16/2024 9:49 AM EST [facility] Calcium 8.7 8.5 - 10.5 mg/dL LAB CHEMISTRY METHOD 09/16/2024 9:49 AM EST [facility] Blood Venous blood specimen / Unknown Venipuncture / Unknown 09/16/2024 6:26 AM EST 09/16/2024 7:54 AM EST us Yanelis De Anda MD LAB BLOOD ORDERABLES Fin al Result [facility] [address] [place] [address], documented in this encounter Visit Diagnoses Diagnosis Gastrointestinal stromal tumor, unspecified site ([facility] V24, [facility] V28) Chronic kidney disease, stage 4 (severe) ([facility] V24, [facility] V28) documented in this encounter Additional Health Concerns Infection Onset Date Last Indicated Resolved Time COVID-19 08/17/2024 08/17/2024 09/16/2024 7:05 PM EST documented as of this encounter Care Teams Computer Hardware Technician Relationship Specialty Start Date End Date Cornelius Perez MD [address] [place] [id number] PCP - General Internal Medicine 12/14/20 documented as of this encounter
--- OUTSIDE RECORDS SUMMARY | 2025-06-08 17:00 | XMS_ITS | Encounter Summary ---
Author Organization [facility] Address [address] [address] Phone Care Team Providers Care Emergency Dispatcher Name Role Phone Srinivasa Perez MD Primary Care Provider + Encounter Details Date Type Department Care Team (Latest Contact Info) Description 05/31/2025 Orders Only [facility] [address] [address] Juan Pablo Cox MD [address] [address] Chronic kidney disease, stage 4 (severe) (HCC); Essential hypertension; Hyperparathyroidism due to renal insufficiency (HCC); Chronic kidney disease, stage 2 (mild); Stage 3b chronic kidney disease (HCC); Secondary hyperparathyroidism of renal origin (HCC) Social History Tobacco Use Types Packs/Day Years [...] as of this encounter Plan of Treatment Not on file documented as of this encounter Visit Diagnoses Diagnosis Chronic kidney disease, stage 4 (severe) (HCC) Essential hypertension Hyperparathyroidism due to renal insufficiency (HCC) Chronic kidney disease, stage 2 (mild) Stage 3b chronic kidney disease (HCC) Secondary hyperparathyroidism of renal origin (HCC) Secondary hyperparathyroidism of renal origin documented in this encounter Care Teams Emergency Dispatcher Relationship Specialty Start Date End Date Srinivasa Perez MD [address] [place] [id number] PCP - General Internal Medicine 01/07/25 documented as of this encounter
--- OUTSIDE RECORDS SUMMARY | 2025-06-08 17:00 | XMS_ITS | Encounter Summary ---
Author Organization [facility] Address [address] [place] [address] Care Team Providers Care Materials Analyst Name Role Phone Cornelius Perez MD Primary Care Provider [phone] Encounter Details Date Type Department Care Team (Late st Contact Info) Description 06/08/2025 Results Follow-Up Adult Medicine - [place] [address] [place] [address] Cornelius Perez MD [address] [place] [address] Social History Tobacco Use Types Packs/Day Years [...] 1:00 PM EST Office Visit Adult Medicine [facility] [address] [place] [address] Roxana Eng NP [address] [place], [place] 07/12/2025 2:30 PM EST Office Visit Adult Medicine [facility] [address] [place] [address] Cornelius Perez MD [address] [place], [place] 07/14/2025 12:30 PM EST Ancillary Procedure [facility] - [facility] [address] [facility] [address] [place] [phone] 09/05/2025 1:00 PM EST Office Visit Pulmonology - [place] [address] [facility] [address] [place] [phone] Eron Camarillo MD [address] [place] [address] documented as of this encounter Visit Diagnoses Not on filedocumented in this encounter Care Teams Materials Analyst Relationship Specialty Start Date End Date Cornelius Perez MD [address] [place] [address] PCP - General Internal Medicine 12/14/20 documented as of this encounter
--- OUTSIDE RECORDS SUMMARY | 2025-06-08 17:00 | XMS_ITS | Encounter Summary ---
Author Organization [facility] Address [address] [place] [address] Care Team Providers Care Climatologist Name Role Phone Cornelius Perez MD Primary Care Provider [phone] Reason for Visit * Reason Onset Date Comments Hospital Follow-up 06/06/2025 Encounter Details Date Type Department Care Team (Late st Contact Info) Description 06/06/2025 Telephone Adult Medicine - [place] [address] [place] [address] Cornelius Perez MD [address] [place] [address] Social History Tobacco Use Types Packs/Day Years [...] of Assessment Author No 06/12/2024 9:46 AM EDShamika Padilla RN * Do you have serious difficulty walking or climbing stairs? Answer Date of Assessment Author No 06/12/2024 9:46 AM Shamika Mcfarland RN * Do you have serious difficulty dressing or bathing? Answer Date of Assessment Author No 06/12/2024 9:46 AM EDShamika Padilla RN * Because of a physical, mental, [...] Notes * Casey Deal RN - 06/06/2025 10:45 AM EDT Appointment scheduled * Susan Ying - 06/06/2025 10:32 AM EDT Hospital/ER follow up appointment needed Patient in tears. Wants PCP to give her a call. She is beside herself with all of the problems she is having related to her cancer. Hospital patient was treated at: [facility], [facility] Was this only an ER visit or was the patient admitted to the hospital? Admitted to the hospital/kept overnight Date of visit if ER visit only: n/a If patient was admitted what was the date of discharge? 06/04/25 Reason/diagnosis for visit or stay: bleeding, surgery When was the patient told to follow up? darvin Was visit or stay related to an injury? If yes, what was the date of injury (DOI)? No If yes, was the injury due to: Not 3rd constitution party related documented in this encounter Plan of Treatment Upcoming Encounters Date Type Department Care Team (Late st Contact Info) Description 06/22/2025 1:00 PM EST Office Visit Adult Medicine - [place] [address] [place] [address] Roxana Eng NP [address] [place] [address] 07/12/2025 2:30 PM EST Office Visit Adult Medicine - [place] [address] [place] [address] Cornelius Perez MD [address] [place] [address] 07/14/2025 12:30 PM EST Ancillary Procedure [facility] - [facility] [address] [place] [address] 09/05/2025 1:00 PM EST Office Visit Pulmonology - [place] [address] [facility] [address] [place] [phone] Eron Camarillo MD [address] [place] [phone] documented as of this encounter Visit Diagnoses Not on filedocumented in this encounter Care Teams Climatologist Relationship Specialty Start Date End Date Cornelius Perez MD [address] [place] [address] PCP - General Internal Medicine 12/14/20 documented as of this encounter
== END 2025-06-08 13:55 | disposition home or self-care (01) ==
LOC: HO.HKAS 13:22
PROVIDERS: PCP Internal Medicine; Visit Provider Internal Medicine Hypertension Specialist
DX: N18.9 Chronic kidney disease, unspecified (principal); E21.3 Hyperparathyroidism, unspecified; N20.0 Calculus of kidney; J44.9 Chronic obstructive pulmonary disease, unspecified; N39.0 Urinary tract infection, site not specified
CPT/HCPCS: 99214

== ENCOUNTER → 2025-06-08 13:22 | Outpatient (BNVA) | payer MEDICARE, MEDICAID, SELFPAY | PROVIDERS: PCP Internal Medicine; Visit Provider Internal Medicine Hypertension Specialist | DX: I12.9 Hypertensive chronic kidney disease with stage 1 through stage 4 chronic kidney disease, or unspecified chronic kidney disease (principal); N18.32 Chronic kidney disease, stage 3b; N20.0 Calculus of kidney; N39.0 Urinary tract infection, site not specified; J44.9 Chronic obstructive pulmonary disease, unspecified; E21.3 Hyperparathyroidism, unspecified | CPT/HCPCS: 99212 ==

== ENCOUNTER 2025-07-20 10:36 | Outpatient (AMB) | payer MEDICARE, MEDICAID, SELFPAY ==
--- NOTE | 2025-07-20 10:39 | HO.NEPHOV_ITS ---
Vital Signs 07/20/25 10:40 Height 5 ft 5 in Weight 125 lb BMI 20.8 BP 100/56 L Blood Pressure Location Lt brachial Position Sitting Pulse 66 Pulse Source Pulse Oximeter Pulse Oximetry (%) 98 Oxygen Delivery Method Room Air Intake Visit Reasons: 6 weeks follow up Sanitation Director Required: No Accompanied by: Friend Allergies morphine Allergy (Unknown, Verified 07/20/25 10:43) Vomiting Medication List - Last Reconciled 07/20/25 by Will Singh MD amlodipine 10 mg PO DAILY atorvastatin mg PO DAILY cinacalcet 60 mg PO DAILY docusate sodium 100 mg PO DAILY duloxetine 60 mg PO DAILY wmemxuuuuxy-xlstgcpqq-meeqrlht 100-62.5-25 mcg (Trelegy Ellipta) 1 ea inhalation DAILY furosemide 20 mg PO DAILY PRN labetalol 100 mg PO BID lorazepam 0.5 mg PO Q6H PRN losartan 25 mg PO DAILY magnesium oxide 400 mg PO DAILY potassium chloride ER 10 mEq PO DAILY sennosides (senna) 8.6 - 17.2 mg PO BEDTIME PRN sunitinib malate mg PO HPI Comments Details: Gloria is a 79 year-old woman with a hypertension, renal stones, bipolar disorder and a history of CKD Used to see Switched to my care since his [facility] Accompanied by friend She has a complicated history including calcium pyrophosphate deposition disease and history of kidney stones. History of hyperparathyroidism . 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 04/02/24 ; CT with IV contrast was cancelled. 06/30/24; Surgery cancelled and waiting for pulm evaluation; Recent fall with knee injury 10/27/24 : Accompanied by daughter today. She has had few hospitalizations with pneumonia and other issues. She developed TANVI and renal function has improved. She also had hypokalemia requiring potassium supplementation. She was still waiting for Pulmonary evaluation. 12/15/24 Last month she was in ER for hypokalemia ;s/p IV KCL and now on PO KCL; No diarrhea . No polyuria. No nocturia ;Imatinib has been started as of 12/13/24 03/09/25 ;Being treated by [facility] for malignancy ;DID not go for followup appointment ;BP has been fluctuating 03/30/25 The patient is a 79-year-old female [facility] multiple medical problems comes in for chronic kidney disease management. Kidney function has improved, but sunitinib has not been started due to kidney concerns. Proteinuria is present with a level of 380 mg, slightly elevated. Hypertension - losartan 25 mg, started three weeks ago. Blood pressure is well- controlled. Edema is noted in the right leg, attributed to amlodipine. Edema is mild and not bothersome. History of cancer with follow-up treatment scheduled. Sunitinib not started 05/18/2025. No new complaints today. All medications reviewed. 06/08/25 - The patient is a 79-year-old female with CKD , recent hospitalization due to rectal bleeding. - Hemorrhoids: Severe bleeding and diarrhea led to hospitalization. - Anemia: Hemoglobin dropped to 8.8 g/dL, no transfusion given. s/p Colonoscopy- and polypectomy ( per patient) - Constipation: Alternating constipation and diarrhea, - Hypertension: Blood pressure elevated at 150 mmHg, decreased to 140 mmHg. - Hypokalemia: Potassium level low at 3.3 mEq/L, advised to resume supp lementation. - Chronic kidney disease: Creatinine stable between 1.3 and 1.5 mg/dL. 07/20/25 History of Present Illness The patient is a 79 year old female presenting for nephrology follow-up. She has a history of chronic kidney disease, which has been stable with a recent creatinine of 1.6 mg/dL and a GFR of 31%, placing her at stage 3. She reports a recent increase in foamy urine. The patient reports multiple ongoing symptoms, including difficulties with her thought process and short-term memory, which have been occurring for a few months. She also notes worsening vision, swollen eyelids, headaches, significant fatigue, and leg pain. She experiences lightheadedness upon standing. Her medical history is significant for a gastrointestinal stromal tumor, and she has a recommendation to restart chemotherapy with sunitinib. She also has a history of an adrenocortical neoplasm, osteoarthritis manifesting as painful Heberden's nodes on her hands, and skin changes consistent with keratosis and pruritus. The patient expresses feelings of being overwhelmed and depressed due to her multiple health issues and the logistical challenges of traveling to [place] for cancer care. She was recently discharged from [facility], where palliative care was recommended. Her medications include losartan, lorazepam, and Tylenol for pain. rafael. No rash. Reports leg pain and presence of Herbutins nodes, indicative of arthritis. 1. Chronic Kidney Disease, Stage 3 - The patient's kidney function is stable with a creatinine of 1.6 and eGFR of 31%, classifying her condition as Stage 3 CKD, not Stage 4. - The patient's symptoms of eyelid swelling are not consistent with nephrotic syndrome, as her proteinuria level is low. - Due to complaints of foamy urine, a urine analysis will be ordered to re- evaluate for proteinuria. - The patient was advised that her current medications, Tylenol and lorazepam, are safe for her kidneys. - The patient was counseled to avoid NSAIDs such as Aleve, Advil, and Motrin (ibuprofen) due to the risk of worsening kidney function. - Plan to follow up in two months. 2. Hypotension - The patient's blood pressure was measured at 100/50 mmHg. - Her symptoms of lightheadedness and fatigue are likely attributable to a low blood pressure. - Losartan will be discontinued at this time to avoid further lowering of her blood pressure. - The patient was instructed to monitor her blood pressure at home and to restart losartan only if the systolic number consistently goes above 140 mmHg. 3. Gastrointestinal Stromal Tumor - The patient was encouraged to start her prescribed chemotherapy, sunitinib (Sutent), as recommended by her oncology team. 4. Osteoarthritis - The patient's hand nodules are identified as Heberden's nodes, a manifestation of osteoarthritis. - Tylenol is considered a safe option for pain management, although the patient reports it provides little relief. - The patient was strongly advised against using any NSAIDs for pain. 5. Pruritus And Keratosis - The patient reports constant itching that disrupts her sleep. - Skin changes were identified as keratosis, a hardening of the skin related to age. - It was recommended to use Vaseline as a moisturizer to help minimize the itching. 6. Care Coordination And Psychosocial Support - The patient expressed significant distress, depression, and feeling overwhelmed by her multiple medical conditions and the burden of care. - Supported the recommendation for the patient to engage with a palliative care team for symptom management and additional support. - The patient will seek to establish care with a new primary care physician locally as her current doctor is leaving. Patient Instructions - Stop taking your losartan medication for now because your blood pressure is low. - You can check your blood pressure at home. If the top number is consistently over 140, you can start taking the losartan again. - For your arthritis pain, you can take Tylenol. Do not take Aleve, Advil, Motrin, or ibuprofen, as these medications can be harmful to your kidneys. - Use Vaseline on your skin to help with the itching. - It is recommended that you start the chemotherapy medication called Sutent as planned by your other doctors. - It would be a good idea to see the palliative care team for extra support. - You are encouraged to find a new primary care doctor in this area. - Your next appointment here will be in two months. [facility] Surgical History H/O colonoscopy (~05/2025) Family History Mother Hypertension High cholesterol Crohn's disease COPD (chronic obstructive pulmonary disease) Father Brain cancer Social History Alcohol intake: never Patient Tobacco Use Status: Former Tobacco user Physical Exam Vital Signs: Last Vital Signs Pulse 66 07/20/25 10:40 BP 100/56 L 07/20/25 10:40 Pulse Ox 98 07/20/25 10:40 Oxygen Delivery Method Room Air 07/20/25 10:40 BMI result Body Mass Index 20.8 Results Reviewed Results Reviewed: - Creatinine: 1.6 mg/dL (stable) - Potassium: 4.3 mEq/L - Hemoglobin: 11.1 g/dL - eGFR: 31%, consistent with stage 3 CKD. - Urinalysis: Previous urine protein was approximately 500 mg, which is not in the nephrotic range. Nephrology Results: Hgb, (12.0-16.0) 11.1 g/dl L 03/09/25 WBC, (4.8-10.8) 5.8 X10*3/uL 03/09/25 Plt Count, (160-400) 231 X10*3/uL 03/09/25 Sodium, (135-145) 139 mmol/L 05/18/25 Potassium, (3.3-5.1) 3.2 mmol/L L 05/18/25 Chloride, (96-108) 100 mmol/L 05/18/25 Carbon Dioxide, (22-29) 32 mmol/L H 05/18/25 BUN, (9-16) 25 mg/dL H 05/18/25 Creatinine, (0.5-1.4) 1.88 mg/dL H 05/18/25 Calcium, (8.4-10.2) 8.1 mg/dL L 05/18/25 Phosphorus, (2.7-4.5) 3.6 mg/dL 10/27/24 PTH Intact, (8.7-77.1) 268.8 pg/mL H 05/18/25 Urine Protein, (Neg-Trace) 100 (2+) mg/dL H 03/09/25 Urine Creatinine 182.72 mg/dL 03/09/25 Assessment & Plan Assessment & Plan (1) Hyperparathyroidism: Code(s): E21.3 - Hyperparathyroidism, unspecified Category: Medical (2) CKD (chronic kidney disease): Code(s): N18.9 - Chronic kidney disease, unspecified Category: Medical (3) Nephrolithiasis: Code(s): N20.0 - Calculus of kidney Category: Medical (4) COPD (chronic obstructive pulmonary disease): Code(s): J44.9 - Chronic obstructive pulmonary disease, unspecified Category: Medical (5) UTI (urinary tract infection), uncomplicated: Code(s): N39.0 - Urinary tract infection, site not specified Category: Medical Plan Elderly woman with CKD in a setting fo HTN She has CKD 3B Another episode of AK - cr at 2.1 on 12/06/24 Marginal improvement in Creatinine cystic mass above the kidneys 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 Being followed by surgical oncology. Started on Imatinib on 12/15/24 ; Currently NOT taking this Watch creatinine closely Follows in [facility] h/o Mild Hypokalemia K is normal Keep KCL Severe anemia due to blood loss Recent HgB is 8.8 gm/dL on 06/04 HCT has improved Follow with PCP and GI HTN BP is low today HOLD Losartan 25 mg QD Orders: Orders Parathyroid Hormone Intact 2 Months E21.3 - Hyperparathyroidism, unspecified, N18.9 - Chronic kidney disease, unspecified Basic Metabolic Panel 2 Months E21.3 - Hyperparathyroidism, unspecified, N18.9 - Chronic kidney disease, unspecified Complete Blood Count no Diff 2 Months E21.3 - Hyperparathyroidism, unspecified, N18.9 - Chronic kidney disease, unspecified Coding Level of Care Code Est Pt Level 4 (82151) Diagnoses Hyperparathyroidism E21.3 CKD (chronic kidney disease) N18.9 Nephrolithiasis N20.0 COPD (chronic obstructive pulmonary disease) J44.9 UTI (urinary tract infection), uncomplicated N39.0
[2025-07-20 10:40] VITALS: BP 100/56; PULSE 66; O2SAT 98; BMI 20.8
== END 2025-07-20 11:07 | disposition home or self-care (01) ==
LOC: HO.HKAS 10:37
PROVIDERS: PCP Internal Medicine; Visit Provider Internal Medicine Hypertension Specialist
DX: E21.3 Hyperparathyroidism, unspecified (principal); N18.9 Chronic kidney disease, unspecified; N20.0 Calculus of kidney; J44.9 Chronic obstructive pulmonary disease, unspecified; N39.0 Urinary tract infection, site not specified
CPT/HCPCS: 99214

== ENCOUNTER → 2025-07-20 10:36 | Outpatient (BNVA) | payer MEDICARE, MEDICAID, SELFPAY | PROVIDERS: PCP Internal Medicine; Visit Provider Internal Medicine Hypertension Specialist | DX: N18.30 Chronic kidney disease, stage 3 unspecified (principal); M19.90 Unspecified osteoarthritis, unspecified site; E21.3 Hyperparathyroidism, unspecified; N20.0 Calculus of kidney; J44.9 Chronic obstructive pulmonary disease, unspecified; N39.0 Urinary tract infection, site not specified; I10 Essential (primary) hypertension; D50.0 Iron deficiency anemia secondary to blood loss (chronic) | CPT/HCPCS: 99212 ==